=== PATIENT | male | born 1960 | race Caucasian/White ===

== ENCOUNTER 2016-07-09 18:40 | Inpatient (IN) | payer BC ==
[~2016-07-09] VITALS: Ht 182.9 cm; Wt 108.3 kg
[2016-07-09] MEDS ORDERED: ALBUT/IPRATROP 3MG/0.5MG NEB 3 ML VIAL INH STA (19:44)
[2016-07-09 19:54] LABS: BASO % 0.1 %; BASO ABS # 0.02 K/uL (0-0.2); COMPLETE YES; EOS % 0.1 %; IG% 0.2 %; LYMPH % 8.2 %; LYMPH ABS # 1.13 K/uL (1.2-3.4); MEAN CELL VOLUME 88.1 fL (80-100); MEAN CORPUSCULAR HEMOGLOBIN 30.9 pg (25-34); MEAN CORPUSCULAR HGB CONC 35.1 g/dl (32-36); MEAN PLATELET VOLUME 9.4 fL (7.4-10.4); MONO % 7.3 %; NEUT % 84.1 %; PLATELET COUNT 248 K/uL (130-400); RED BLOOD COUNT 4.88 M/uL (4.7-6.1); WHITE BLOOD COUNT 13.85 K/uL (4.8-10.8)
[2016-07-09 20:07] LABS: ALT/SGPT 27 U/L (12-78); AST/SGOT 18 U/L (15-37); BLOOD UREA NITROGEN 24 mg/dl (7-18); BUN/CREATININE RATIO 18.8 (10-20); CALCIUM 8.4 mg/dl (8.5-10.1); CARBON DIOXIDE 24 mmol/L (21-32); CHLORIDE 101 mmol/L (98-107); GLUCOSE 126 mg/dl (70-99); POTASSIUM 4.3 mmol/L (3.5-5.1); SODIUM 135 mmol/L (136-145)
[2016-07-09] MEDS ORDERED: LOPE1LIQ15 PO (20:12)
[2016-07-09 20:13] LABS: ALB/GLOB RATIO 1.1 (0.9-2); ALKALINE PHOSPHATASE 65 U/L (45-117); CKMB/CK RATIO 0.7 (0-3.0)
--- NOTE | 2016-07-09 20:45 | DIAGNOSTIC IMAGING REPORT ---
CHEST 2 VIEWS ROUTINE HISTORY: EVALUATE RESPIRATORY DISTRESS.DYSPNEA COMPARISON: Chest 09/25/2015. FINDINGS: Linear scarlike densities within the right lower lung zone persists. Stable calcified granuloma within the right lower lobe measuring 1.3 cm. No new focal lung consolidations. No evidence for pulmonary edema. Cardiomediastinal silhouette is stable. IMPRESSION: No significant change compared to the prior study. No acute process. Electronically signed by: Kelvin Chao M.D. 07/09/2016 8:44 PM Dictated Date/Time: 07/09/2016 8:41 PM
[2016-07-09 21:01] LABS: URINE APPEARANCE CLEAR (CLEAR); URINE COLOR ORANGE; URINE NITRITE POS (NEG); URINE SPECIFIC GRAVITY 1.029 (1.000-1.030); UROBILINOGEN NEG (NEG)
[2016-07-09 21:06] LABS: MANUAL MICROSCOPIC REQUIRED? NO; REVIEW REQ? NO; URINE BILIRUBIN NEG (NEG)
[2016-07-09] MEDS ORDERED: GUAIFENESIN SUGAR FREE 100 MG/5 ML UDC PO STA (21:08)
[2016-07-09] MEDS ORDERED: BENZONATATE 100MG CAP PO ONE (21:15)
[2016-07-09] MEDS ORDERED: OPTIRAY 320 IV PRN (21:15)
[2016-07-09] MEDS ORDERED: DEXAMETHASONE SOD INJ 10 MG/ML VIAL IV ONE (21:30)
--- NOTE | 2016-07-09 22:29 | DIAGNOSTIC IMAGING REPORT ---
CHEST CTA for PULMONARY ARTERIES CT DOSE: 666.46 mGy.cm HISTORY: Coughing. Short of breath. Positive d-dimer. TECHNIQUE: Multiaxial CT images of the chest were performed following the intravenous administration of contrast to evaluate the pulmonary arteries. Maximal intensity projection images were also obtained. COMPARISON STUDY: Chest CTA 09/25/2015. FINDINGS: No evidence for an aortic dissection or pulmonary embolus. No pneumothorax or pleural effusions. The central airways are patent. Stable 2 mm nodule within the left lung apex. Stable linear scarlike densities within the right middle lobe. No new focal lung consolidations to suggest pneumonia. Stable calcified granuloma within the right lower lobe. Hepatic steatosis. A few punctate calcified granulomas within the spleen. The adrenal glands are unremarkable. Cholelithiasis. Calcified subcarinal and right hilar lymph nodes. No lymphadenopathy. IMPRESSION: 1. No evidence for pulmonary embolus. 2. Evidence for prior granulomatous disease. 3. Stable scarlike densities within the right middle lobe. 4. Hepatic steatosis. 5. Cholelithiasis. Electronically signed by: Kelvin Chao M.D. 07/09/2016 10:27 PM Dictated Date/Time: 07/09/2016 10:19 PM
[2016-07-10] MEDS ORDERED: ASPIRIN 81 MG CHEW PO STA (01:14)
[2016-07-10] MEDS ORDERED: METOPROLOL TARTRATE 1 MG/ML VIAL IV STA (01:14)
[2016-07-10 01:22] VITALS: O2SAT 95
[2016-07-10] MEDS ORDERED: SODIUM CHLORIDE 0.9% 1000ML 1,000 ML IV SCH (01:30)
[2016-07-10 01:47] LABS: MAGNESIUM 2.1 mg/dl (1.8-2.4); THYROID STIMULATING HORMONE 0.736 uIu/ml (0.300-4.500)
[2016-07-10] MEDS ORDERED: CALCIUM GLUCONATE 10% 1,000 MG in SODIUM CHLORIDE 0.9% 50ML 50 ML IV STA (01:49)
[2016-07-10] MEDS ORDERED: PROMETHAZINE HCL INJ 12.5 MG in SODIUM CHLORIDE 0.9% 50ML 50 ML IV PRN (02:15)
[2016-07-10] MEDS ORDERED: LORAZEPAM 2 MG/ML 1 ML VIAL IV PRN (02:15)
[2016-07-10] MEDS ORDERED: LEVALBUTEROL/IPRATROPIUM NEB INH PRN (02:15)
[2016-07-10] MEDS ORDERED: SODIUM CHLORIDE 0.9% 1000ML 1,000 ML IV ONE (02:15)
[2016-07-10] MEDS ORDERED: BENZONATATE 100MG CAP PO PRN (02:15)
[2016-07-10] MEDS ORDERED: ACETAMINOPHEN 325 MG TAB PO PRN (02:15)
--- NOTE | 2016-07-10 03:01 | EMERGENCY ROOM VISIT NOTE ---
History Report prepared by [place]: Flor Merida Under the Supervision of: Dr. Yo Jordan M.D. First contact with patient: 19:33 Chief Complaint: COUGH Stated Complaint: COUGH,FEVER,HEARTRATE 120 Nursing Triage Summary: Cough for 3 months , not any better with treatment of abx, steroid and tessalon bertha History of Present Illness The patient is a 55 year old male who presents to the Emergency Room with complaints of severe and persistent cough starting 3 months ago. He notes difficulty breathing. He has been taking an inhaler, antibiotics, steroids, and Tessalon Bertha without relief. He also complains of a headache and generalized body aches. Yesterday, he had some vomiting and diarrhea. He had similar symptoms last year and he was diagnosed with pneumonitis. Pt denies LOC, fevers , chills, diaphoresis, visual changes, neck pain, chest pain, nausea, abdominal pain, back pain, melena, hematochezia, urinary symptoms, numbness, weakness, lymphadenopathy, rash, or other complaints. Source of History: patient Onset: 3 months ago Position: other (global) Symptom Intensity: severe Quality: other (cough) Timing: other (persistent) Modifying Factors (Relieving): other (inhaler, antibiotics, steroids, and Tessalon Bertha without relief) Associated Symptoms: + diarrhea, + headache, + vomiting Review of Systems See HPI for pertinent positives and negatives. A total of ten systems were reviewed and were otherwise negative. Past Medical & Surgical Medical Problems: (1) Arthritis (2) HTN (hypertension) (3) Sepsis Family History FH: myocardial infarction Heart disease Hypertension Social History Smoking Status: Current Every Day Smoker Drug Use: none Marital Status: Housing Status: lives with significant other Occupation Status: employed Current/Historical Medications Scheduled PRN Loperamide Hcl (Loperamide Hcl), 15 ML PO UD PRN for Diarrhea Allergies Coded Allergies: Shellfish (Unverified Allergy, Intermediate, ELLIOTT VARELA, 07/09/16) Physical Exam Vital Signs Date Time Temp Pulse Resp B/P Pulse Ox O2 Delivery O2 Flow Rate FiO2 07/10/16 01:24 90 162/89 07/10/16 01:22 97 18 162/89 95 Room Air 07/10/16 00:07 96 07/09/16 23:55 97 18 138/84 94 Room Air 07/09/16 22:11 107 18 142/73 95 Room Air 07/09/16 20:44 113 18 125/63 97 Room Air 07/09/16 20:34 107 07/09/16 19:39 96 Room Air 07/09/16 19:05 96 Room Air 07/09/16 19:02 37.7 128 20 130/64 96 Room Air Physical Exam GENERAL: Awake, alert, well-appearing, in no distress HENT: Normocephalic, atraumatic. Oropharynx unremarkable. EYES: Normal conjunctiva. Sclera non-icteric. NECK: Supple. No nuchal rigidity. FROM. No JVD. RESPIRATORY: Frequent cough present. CARDIAC: Mildly tachycardic rate, normal rhythm. Extremities warm and well perfused. Pulses equal. ABDOMEN: Soft, non-distended. No tenderness to palpation. No rebound or guarding. No masses. RECTAL: Deferred. MUSCULOSKELETAL: Chest examination reveals no tenderness. The back is symmetrical on inspection without obvious abnormality. There is no CVA tenderness to palpation. No joint edema. LOWER EXTREMITIES: Calves are equal size bilaterally and non-tender. No edema. No discoloration. NEURO: Normal sensorium. No sensory or motor deficits noted. SKIN: No rash or jaundice noted. Medical Decision & Procedures ER Provider Diagnostic Interpretation: X ray results as stated below per my interpretation and radiologist interpretation. CTA results as stated below per my review and radiologist interpretation CHEST CTA for PULMONARY ARTERIES CT DOSE: 666.46 mGy.cm HISTORY: Coughing. Short of breath. Positive d-dimer. TECHNIQUE: Multiaxial CT images of the chest were performed following the intravenous administration of contrast to evaluate the pulmonary arteries. Maximal intensity projection images were also obtained. COMPARISON STUDY: Chest CTA 09/25/2015. FINDINGS: No evidence for an aortic dissection or pulmonary embolus. No pneumothorax or pleural effusions. The central airways are patent. Stable 2 mm nodule within the left lung apex. Stable linear scarlike densities within the right middle lobe. No new focal lung consolidations to suggest pneumonia. Stable calcified granuloma within the right lower lobe. Hepatic steatosis. A few punctate calcified granulomas within the spleen. The adrenal glands are unremarkable. Cholelithiasis. Calcified subcarinal and right hilar lymph nodes. No lymphadenopathy. IMPRESSION: 1. No evidence for pulmonary embolus. 2. Evidence for prior granulomatous disease. 3. Stable scarlike densities within the right middle lobe. 4. Hepatic steatosis. 5. Cholelithiasis. Electronically signed by: Kelvin Chao M.D. 07/09/2016 10:27 PM Dictated Date/Time: 07/09/2016 10:19 PM CHEST 2 VIEWS ROUTINE HISTORY: EVALUATE RESPIRATORY DISTRESS.DYSPNEA COMPARISON: Chest 09/25/2015. FINDINGS: Linear scarlike densities within the right lower lung zone persists. Stable calcified granuloma within the right lower lobe measuring 1.3 cm. No new focal lung consolidations. No evidence for pulmonary edema. Cardiomediastinal silhouette is stable. IMPRESSION: No significant change compared to the prior study. No acute process. Electronically signed by: Kelvin Chao M.D. 07/09/2016 8:44 PM Dictated Date/Time: 07/09/2016 8:41 PM Laboratory Results 07/09/16 19:34 Red Blood Count 4.88, Mean Corpuscular Volume 88.1, Mean Corpuscular Hemoglobin 30.9, Mean Corpuscular Hemoglobin Concent 35.1, Mean Platelet Volume 9.4, Neutrophils (%) (Auto) 84.1, Lymphocytes (%) (Auto) 8.2, Monocytes (%) (Auto) 7.3, Eosinophils (%) (Auto) 0.1, Basophils (%) (Auto) 0.1, Neutrophils # (Auto) 11.64, Lymphocytes # (Auto) 1.13, Monocytes # (Auto) 1.01, Eosinophils # (Auto) 0.02, Basophils # (Auto) 0.02 07/09/16 19:34 Test 07/09/16 19:34 07/09/16 20:00 07/10/16 00:00 07/10/16 01:38 White Blood Count 13.85 K/uL (4.8-10.8) Red Blood Count 4.88 M/uL (4.7-6.1) Hemoglobin 15.1 g/dL (14.0-18.0) Hematocrit 43.0 % (42-52) Mean Corpuscular Volume 88.1 fL (80-100) Mean Corpuscular Hemoglobin 30.9 pg (25-34) Mean Corpuscular Hemoglobin Concent 35.1 g/dl (32-36) Platelet Count 248 K/uL (130-400) Mean Platelet Volume 9.4 fL (7.4-10.4) Neutrophils (%) (Auto) 84.1 % Lymphocytes (%) (Auto) 8.2 % Monocytes (%) (Auto) 7.3 % Eosinophils (%) (Auto) 0.1 % Basophils (%) (Auto) 0.1 % Neutrophils # (Auto) 11.64 K/uL (1.4-6.5) Lymphocytes # (Auto) 1.13 K/uL (1.2-3.4) Monocytes # (Auto) 1.01 K/uL (0.11-0.59) Eosinophils # (Auto) 0.02 K/uL (0-0.5) Basophils # (Auto) 0.02 K/uL (0-0.2) RDW Standard Deviation 43.6 fL (36.4-46.3) RDW Coefficient of Variation 13.5 % (11.5-14.5) Immature Granulocyte % (Auto) 0.2 % Immature Granulocyte # (Auto) 0.03 K/uL (0.00-0.02) D-Dimer 530 ug/L FEU (0-500) Anion Gap 10.0 mmol/L (3-11) Est Creatinine Clear Calc Drug Dose 80.2 ml/min Estimated GFR () 70.2 Estimated GFR (Non- 60.6 BUN/Creatinine Ratio 18.8 (10-20) Calcium Level 8.4 mg/dl (8.5-10.1) Magnesium Level 2.1 mg/dl (1.8-2.4) Total Bilirubin 1.0 mg/dl (0.2-1) Aspartate Amino Transf (AST/SGOT) 18 U/L (15-37) Alanine Aminotransferase (ALT/SGPT) 27 U/L (12-78) Alkaline Phosphatase 65 U/L (45-117) Total Creatine Kinase 206 U/L (39-308) Creatine Kinase MB 1.5 ng/ml (0.5-3.6) Creatine Kinase MB Ratio 0.7 (0-3.0) Troponin I < 0.015 ng/ml (0-0.045) Total Protein 7.1 gm/dl (6.4-8.2) Albumin 3.7 gm/dl (3.4-5.0) Globulin 3.4 gm/dl (2.5-4.0) Albumin/Globulin Ratio 1.1 (0.9-2) Thyroid Stimulating Hormone (TSH) 0.736 uIu/ml (0.300-4.500) Urine Color ORANGE Urine Appearance CLEAR (CLEAR) Urine pH 5.0 (4.5-7.5) Urine Specific Mclean 1.029 (1.000-1.030) Urine Protein TRACE (NEG) Urine Glucose (UA) NEG (NEG) Urine Ketones TRACE (NEG) Urine Occult Blood NEG (NEG) Urine Nitrite POS (NEG) Urine Bilirubin NEG (NEG) Urine Urobilinogen NEG (NEG) Urine Leukocyte Esterase TRACE (NEG) Urine WBC (Auto) 1-5 /hpf (0-5) Urine RBC (Auto) 0-4 /hpf (0-4) Urine Hyaline Casts (Auto) 10-30 /lpf (0-5) Urine Epithelial Cells (Auto) 10-20 /lpf (0-5) Urine Bacteria (Auto) NEG (NEG) Lactic Acid Level 0.8 mmol/L (0.4-2.0) Laboratory results reviewed by me Medications Administered Medications (Trade) Dose Ordered Sig/Wilder Route Start Time Stop Time Status Last Admin Dose Admin Albuterol/ Ipratropium (Duoneb) 3 ml NOW STAT INH 07/09/16 19:44 07/09/16 19:46 DC 07/09/16 19:55 3 ML Benzonatate (Tessalon Perles Cap) 100 mg NOW ONCE PO 07/09/16 21:15 07/09/16 21:16 DC 07/09/16 21:16 100 MG Guaifenesin (Robitussin Sugar Free Syrup) 100 mg NOW STAT PO 07/09/16 21:08 07/09/16 21:10 DC 07/09/16 21:17 100 MG Dexamethasone Sodium Phosphate (Decadron Inj) 10 mg NOW ONCE IV 07/09/16 21:30 07/09/16 21:31 DC 07/09/16 21:30 10 MG Metoprolol Tartrate (Lopressor Iv) 2.5 mg NOW STAT IV 07/10/16 01:14 07/10/16 01:15 DC 07/10/16 01:24 2.5 MG Aspirin 324 mg 324 mg NOW STAT PO 2/6/17 01:14 07/10/16 01:15 DC 07/10/16 01:24 324 MG Calcium Gluconate/ Sodium Chloride (Calcium Gluconate 10%/Nss 50ml) 60 ml @ 240 mls/hr NOW STAT IV 07/10/16 01:49 07/10/16 02:03 DC 07/10/16 02:19 240 MLS/HR ECG Indication: SOB/dyspnea Rate (beats per minute): 112 Rhythm: sinus tachycardia Findings: Q waves (Anterior and inferior), T-wave inversion (Lateral) Comparison ECG Date: September 25, 2015 Change: Q waves in inferior and anterior leads and lateral T wave inversion is new when compared to September 25, 2015. ED Course 1932: The patient was evaluated in room C04. A complete history and physical exam was performed. 1943: DuoNeb 3 ml INH 2107: Guaifenesin 100 mg PO 2114: Benzonatate 100 mg PO 2116: I reevaluated the patient who is resting comfortably. 2129: Decadron Inj 10 mg IV 113: Aspirin 324 mg PO, Metoprolol Tartrate 2.5 mg IV 0116: Upon reexamination, the patient was doing well. I discussed the test results and treatment plan with him. The patient will be evaluated for further management. 0118: I discussed the patient's case with Dr. Contreras, from [facility]. Medical Decision Triage Nursing notes reviewed. The patient's presentation and history were concerning for respiratory symptoms. Etiologies such as pneumonia, COPD, reactive airway disease, CHF, cardiac ischemia, pulmonary embolism, pneumothorax, musculoskeletal, infections, gastrointestinal, as well as others were entertained. The patient was evaluated. He had a significant cough and respiratory symptoms. He also had tachycardia. The patient had an unremarkable chest x- ray. ECG was performed and was concerning as there were Q waves present as well as ST depressions. The patient was not actively having any pain. Cardiac markers were negative, chemistry and LFTs were negative. The patient does have a elevated white blood cell count. His d-dimer was abnormal. Because of this the patient underwent CT imaging which did not reveal any intrathoracic emergent findings. No pulmonary emboli. No pneumonia. The patient's urinalysis was somewhat abnormal but he has no urinary symptoms. The patient was given IV Lopressor 2.5 mg as well as aspirin. I did discuss the findings. He is unaware of any abnormal ECGs in the past. Because of this situation consultation was made with internal medicine. The case was discussed. Diagnostics were reviewed. The patient was evaluated for further management. The patient did have a urine culture ordered by internal medicine. The chart was completed utilizing [employer] Speech voice recognition software. Grammatical errors, random word insertions, pronoun errors, and incomplete sentences are an occasional consequence of this system due to software limitations, ambient noise, and hardware issues. Any formal questions or concerns about the content, text, or information contained within the body of this dictation should be directly addressed to the physician for clarification. Consults Time Called: 011 Consulting Physician: [facility] Returned Call: 0118 I discussed the patient's case with Dr. Contreras, from [facility]. Impression Primary Impression: Dyspnea Additional Impressions: Tachycardia Acute electrocardiogram changes Scribe Attestation The scribe's documentation has been prepared under my direction and personally reviewed by me in its entirety. I confirm that the note above accurately reflects all work, treatment, procedures, and medical decision making performed by me. Departure Information Dispostion Being Evaluated By Hospitalist Referrals Sandeep Hernández PA-C (PCP) Patient Instructions My [facility] Problem Qualifiers
[2016-07-10] MEDS ORDERED: LORATADINE 10 MG TAB PO STA (03:13)
[2016-07-10] MEDS ORDERED: METRONIDAZOLE 250 MG TAB PO STA (03:13)
[2016-07-10] MEDS ORDERED: IPRATROPIUM BROMIDE NEB SOLN 0.02% 2.5 ML VIAL INH PRN (03:30)
[2016-07-10] MEDS ORDERED: LEVALBUTEROL 1.25MG/0.5ML NEB INH PRN (03:30)
[2016-07-10] MEDS ORDERED: LORAZEPAM INJ 0.5 MG in SYRINGE 0.75 ML IV PRN (03:30)
[2016-07-10 03:35] VITALS: BP 124/76; PULSE 78; TEMP 36.6; Ht 182.9 cm; Wt 108.3 kg
--- NOTE | 2016-07-10 03:47 | HISTORY & PHYSICAL EXAMINATION ---
DATE OF ADMISSION: 07/10/2016 PRIMARY CARE PHYSICIAN: Catracho Hernández PA-C [place] [place] CHIEF COMPLAINT: Nausea, vomiting, fever and persistent cough. HISTORY OF PRESENT ILLNESS: Medical history significant for ongoing tobacco abuse. In the last two months, patient has had dry cough symptoms. Recurrent symptoms the last 4 years around fall/winter time. Denies nasal congestion/postnasal drainage sx Px recalls seeing a specialty sales representative from [place] about 2 years ago for chronic cough sx. 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 Seen at PCP's office two weeks ago for cough sx of weeks duration. Impression was bronchitis. Px prescribed doxycycline and steroid course. No sx response. Today, the patient was seen at urgent care center because of worsening intractable dry cough symptoms. No chest pain, no sob. Px had nausea, vomiting, diarrhea, no abdominal pain. Patient denies urinary symptoms. Fever noted. At the Emergency Room, patient initially tachycardic, noted to be febrile, received Tylenol, IV fluids, DuoNebs in the Emergency Room. Patient currently comfortable but still coughing. MEDICAL HISTORY: As above. SURGERIES: None. HOME MEDICATIONS: Loperamide. ALLERGIES: SHELLFISH. FAMILY HISTORY: There is a family history of heart disease, prostate cancer. PERSONAL AND SOCIAL HISTORY: One-fourth pack day. 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 ROS : as per HPI, all other ROS negative. PHYSICAL EXAMINATION: VITAL SIGNS: Blood pressure was noted to be 130/64, pulse rate 90, RR 18 T 38 O2 sats 96% on room air. GENERAL: Noted to be obese, comfortable, no respiratory distress. SKIN: Normal color. HEENT: Partial alopecia. pink palp conjunctivae, dry mucosa. NECK: Short neck. LUNGS: Decreased breath sounds. No wheezes. HEART: RRR ABDOMEN: Soft, nontender. EXTREMITIES: No edema. no tenderness NEUROLOGIC: No gross focality. LABS: Hemoglobin was 15, hematocrit 40, white cell count 13, platelets 248. Sodium 136, potassium 4 glucose 121. trop 0 UA, trace ketones, positive nitrites, hyaline casts. IMAGING DATA: CT of the chest showed no pulmonary embolus, hepatic steatosis. scar-like densities right middle lobe. evidence of old granulomatous dse EKG rate 110 sinus tachycardia, TWI lat leads ASSESSMENT: 1. Sepsis possibly secondary to diarrheal illness rule out Clostridium difficile diarrhea. hx recent antibiotic rx for chronic cough sx 2. Chronic cough 3 months hx recurrent sx noted around fall/winter as per px over the last 4 years ? seasonal allergy/? asthma 4. ongoing tobacco abuse. 5. Asymptomatic pyuria. contaminated specimen PLAN: GMF CS, stool C. dif. IVF Flagyl for now for presumptive cdif in consideration of sepsis criteria. DC Flagyl if stool C. dif negative. Pulmonary consult RE. chronic cough oral antihistamine trial for now. Nicotine patch. DVT prophylaxis, Lovenox subQ. Full code. MTDD
[2016-07-10 04:24] LABS: INFLUENZA A PCR Neg for Influ A (NEG); INFLUENZA B PCR Neg for Influ B (NEG)
[2016-07-10 07:45] VITALS: BP 121/75; PULSE 72; TEMP 36.5; O2SAT 95
[2016-07-10 07:49] LABS: INR 1.1 (0.9-1.1); PROTHROMBIN TIME (PATIENT) 11.4 SECONDS (9.0-12.0)
[2016-07-10 07:50] LABS: COMPLETE YES; HEMATOCRIT 43.5 % (42-52); IG% 0.2 %; LYMPH % 15.4 %; LYMPH ABS # 0.99 K/uL (1.2-3.4); MEAN CELL VOLUME 87.7 fL (80-100); MEAN CORPUSCULAR HEMOGLOBIN 30.8 pg (25-34); MEAN CORPUSCULAR HGB CONC 35.2 g/dl (32-36); MEAN PLATELET VOLUME 9.6 fL (7.4-10.4); MONO % 2.3 %; NEUT % 82.1 %; PLATELET COUNT 218 K/uL (130-400); RED BLOOD COUNT 4.96 M/uL (4.7-6.1); WHITE BLOOD COUNT 6.43 K/uL (4.8-10.8)
[2016-07-10] MEDS ORDERED: NICOTINE 7 MG/24 HR TDSY TD SCH (08:00)
[2016-07-10] MEDS ORDERED: INFLUENZA ADMINISTRATION CHARGE ONE (08:00)
[2016-07-10] MEDS ORDERED: ENOXAPARIN 40 MG/0.4 ML SYR SQ SCH (08:00)
[2016-07-10] MEDS ORDERED: INFLUENZA VIRUS QUAD VACCINE 0.5 ML SYR IM. ONE (08:00)
[2016-07-10 08:16] LABS: CREATININE 0.92 mg/dl (0.60-1.40)
[2016-07-10 08:17] LABS: BUN/CREATININE RATIO 21.7 (10-20); CALCIUM 8.4 mg/dl (8.5-10.1); POTASSIUM 4.4 mmol/L (3.5-5.1)
[2016-07-10] MEDS ORDERED: GUAIFENESIN 600 MG TABCR PO SCH (09:00)
--- NOTE | 2016-07-10 10:17 | PULMONARY CONSULTATION ---
DATE OF CONSULTATION: 07/10/2016 HISTORY OF PRESENT ILLNESS: The patient is a 55-year-old male who was admitted with nausea, vomiting and persistent cough, and Dr. Contreras has asked me to evaluate the patient from a pulmonary standpoint for the cough. He has had a cough intermittently for 4 years. He states it occurs every winter around [facility] and resolves by the end of July, although he was seen for an acute bronchitis on 09/25/2015 in the Emergency Room and 09/17/2015, so it seems to persist at least into the springtime. The cough is for the most part nonproductive, although occasionally he will produce some thick yellow sputum but it is minimal. He denies aspiration, postnasal drip, fevers, night sweats, weight loss, shortness of breath. On occasion, he will have some mild wheezing. Nothing in the environment seems to precipitate the coughing, although it occurs every winter. I went over an extensive history about his home. He does have 4 dogs, some sleep in his bed but they do not cause too much problem for him as far as he can tell. During the summertime, it resolves. 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 He is smoking about a half pack of cigarettes daily, that is according to the record. According to the patient, he states he is smoking about 3 cigarettes daily, 1 in the morning, 1 after work, and 1 before he goes to bed at night. He is using 2 inhalers, 1 is red, that may be ProAir and the other sounds like Ventolin. He is not sure whether he has been on inhaled steroids in the past, but he states he has taken prednisone in the past without any improvement. REVIEW OF SYSTEMS: Otherwise unremarkable. He goes hunting in the cold weather and does not have any problems. He has not had any significant postnasal drip. There is no exposure to any chemicals. There is nothing to suggest metal fume fever with his welding. He is not an illicit drug user. He has not had any aspiration of any foreign bodies. He did see a tank terminal gauger in [place] since he moved to that area several years ago when he worked for [employer]. Lung specialist did not do bronchoscopy or endoscopy. He was placed on a nasal steroid at that time with no significant improvement. PAST MEDICAL HISTORY: Essentially otherwise unremarkable. PAST SURGICAL HISTORY: None. FAMILY HISTORY: Unremarkable. No one in his family has any pulmonary disorders. No one in his family has any asthma. His father had heart disease and prostate cancer. ALLERGIES: SHELLFISH WHICH CAUSES A RASH. SOCIAL HISTORY: He is . He smokes 3 cigarettes a day. He is not an alcohol user. He does not use illicit drugs. MEDICATIONS: Noted. PHYSICAL EXAMINATION: VITAL SIGNS: His blood pressure is 121/75, pulse 70 and regular, respiratory rate 18, oxygen saturation is 95% on room air, and he is afebrile. Weight is 108.3 kilograms. HEENT: Unremarkable with no evidence of postnasal drip. He has a small posterior pharynx and a large tongue with normal pendulous uvula. No nodes are noted. Trachea midline with no evidence of upper airway obstruction. No supraclavicular or submandibular adenopathy noted. CHEST: Shows good expansion with deep inspiration. BREASTS: Normal. HEART: Regular rate and rhythm. No murmurs are heard. LUNGS: Clear. Forced expiratory maneuver 2 seconds, he does have some coughing after forced expiration. ABDOMEN: Soft, obese, nontender. EXTREMITIES: He has no cyanosis, clubbing or edema. CT of the chest looks good with a minimal 2 mm nodule in the left apex. When compared to the previous CAT scan of 09/25/2015, it has not changed. Minimal scar like abnormality in right middle lobe is noted, hepatic steatosis and granuloma in the right lower lobe, and calcified subcarinal and right hilar lymph node is noted. Cholelithiasis is noted as well. LABORATORY DATA: White count 6.4, hematocrit 43.5%, with normal differential with no eosinophilia noted. Chemistry profile is unremarkable, glucose of 170. TSH, liver function studies, coagulation profile, urinalysis all essentially unremarkable. Influenza PCR for A and B is negative. Blood culture is pending. IMPRESSION: Chronic cough. This is probably related to tobacco use and perhaps some silent reflux. It is interesting that he has several small granulomas with calcified subcarinal and right hilar lymph nodes suggesting old infection. Granulomatous disease is a possibility, although I do not see anything by his exam or on the CT to suggest active sarcoid. This may be reactive airways disorder since it occurs every fall and seems to resolve in the spring. RECOMMENDATIONS: 1. At this point, I think I will discontinu the Mucinex and Tessalon. They have not helped in the past. He is not coughing up any significant sputum. 2. Begin Asmanex 220 mcg one inhalation b.i.d. 3. Antireflux regimen. I placed him on Prilosec 40 mg daily for at least 3 months to see if we can get this to resolve. 4. Check angiotensin converting enzyme level. About 10% of the people with sarcoid will have an elevated ROSALBA level. Thanks for asking me to evaluate Mr. Marshall. I will be glad to see him as an outpatient if he desires.
[2016-07-10] MEDS ORDERED: METRONIDAZOLE 500 MG TAB PO SCH (12:00)
--- NOTE | 2016-07-10 14:45 | Progress Note ---
Medicine Progress Note Date & Time of Visit: Jul 10, 2016 at 14:21. Subjective Pt was seen and examined Lying in bed comfortable with no distress Pt said that his cough feels much better He said that he feels fine he said that he has no diarrhea anymore he denies any chest pain, palpitation, dizziness and sob Objective Last 8 Hrs Date Time Temp Pulse Resp B/P Pulse Ox O2 Delivery O2 Flow Rate FiO2 07/10/16 08:00 Room Air 07/10/16 07:45 36.5 72 18 121/75 95 Room Air Physical Exam: General- adult Head- atraumatic Eyes- PERRL, EOMI ENT- oropharynx clear Neck- supple, no JVD Lungs- clear to auscultation and percussion Heart- regular rhythm; no murmur Abdomen- normal bowel sounds, soft Extremities- no calf tenderness Neuro- alert, oriented x 3; PERRL, EOMI; no facial palsy Skin- warm & dry Laboratory Results: Last 24 Hours Test 07/09/16 19:34 07/09/16 20:00 07/10/16 00:00 07/10/16 01:38 White Blood Count 13.85 K/uL Red Blood Count 4.88 M/uL Hemoglobin 15.1 g/dL Hematocrit 43.0 % Mean Corpuscular Volume 88.1 fL Mean Corpuscular Hemoglobin 30.9 pg Mean Corpuscular Hemoglobin Concent 35.1 g/dl Platelet Count 248 K/uL Mean Platelet Volume 9.4 fL Neutrophils (%) (Auto) 84.1 % Lymphocytes (%) (Auto) 8.2 % Monocytes (%) (Auto) 7.3 % Eosinophils (%) (Auto) 0.1 % Basophils (%) (Auto) 0.1 % Neutrophils # (Auto) 11.64 K/uL Lymphocytes # (Auto) 1.13 K/uL Monocytes # (Auto) 1.01 K/uL Eosinophils # (Auto) 0.02 K/uL Basophils # (Auto) 0.02 K/uL RDW Standard Deviation 43.6 fL RDW Coefficient of Variation 13.5 % Immature Granulocyte % (Auto) 0.2 % Immature Granulocyte # (Auto) 0.03 K/uL D-Dimer 530 ug/L FEU Sodium Level 135 mmol/L Potassium Level 4.3 mmol/L Chloride Level 101 mmol/L Carbon Dioxide Level 24 mmol/L Anion Gap 10.0 mmol/L Blood Urea Nitrogen 24 mg/dl Creatinine 1.30 mg/dl Est Creatinine Clear Calc Drug Dose 80.2 ml/min Estimated GFR () 70.2 Estimated GFR (Non- 60.6 BUN/Creatinine Ratio 18.8 Random Glucose 126 mg/dl Calcium Level 8.4 mg/dl Magnesium Level 2.1 mg/dl Total Bilirubin 1.0 mg/dl Aspartate Amino Transf (AST/SGOT) 18 U/L Alanine Aminotransferase (ALT/SGPT) 27 U/L Alkaline Phosphatase 65 U/L Total Creatine Kinase 206 U/L Creatine Kinase MB 1.5 ng/ml Creatine Kinase MB Ratio 0.7 Troponin I < 0.015 ng/ml Total Protein 7.1 gm/dl Albumin 3.7 gm/dl Globulin 3.4 gm/dl Albumin/Globulin Ratio 1.1 Thyroid Stimulating Hormone (TSH) 0.736 uIu/ml Urine Color ORANGE Urine Appearance CLEAR Urine pH 5.0 Urine Specific [place] 1.029 Urine Protein TRACE Urine Glucose (UA) NEG Urine Ketones TRACE Urine Occult Blood NEG Urine Nitrite POS Urine Bilirubin NEG Urine Urobilinogen NEG Urine Leukocyte Esterase TRACE Urine WBC (Auto) 1-5 /hpf Urine RBC (Auto) 0-4 /hpf Urine Hyaline Casts (Auto) 10-30 /lpf Urine Epithelial Cells (Auto) 10-20 /lpf Urine Bacteria (Auto) NEG Influenza Type A (RT-PCR) Neg for Influ A Influenza Type B (RT-PCR) Neg for Influ B Lactic Acid Level 0.8 mmol/L Test 07/10/16 06:50 07/10/16 09:25 White Blood Count 6.43 K/uL Red Blood Count 4.96 M/uL Hemoglobin 15.3 g/dL Hematocrit 43.5 % Mean Corpuscular Volume 87.7 fL Mean Corpuscular Hemoglobin 30.8 pg Mean Corpuscular Hemoglobin Concent 35.2 g/dl Platelet Count 218 K/uL Mean Platelet Volume 9.6 fL Neutrophils (%) (Auto) 82.1 % Lymphocytes (%) (Auto) 15.4 % Monocytes (%) (Auto) 2.3 % Eosinophils (%) (Auto) 0.0 % Basophils (%) (Auto) 0.0 % Neutrophils # (Auto) 5.28 K/uL Lymphocytes # (Auto) 0.99 K/uL Monocytes # (Auto) 0.15 K/uL Eosinophils # (Auto) 0.00 K/uL Basophils # (Auto) 0.00 K/uL RDW Standard Deviation 42.9 fL RDW Coefficient of Variation 13.4 % Immature Granulocyte % (Auto) 0.2 % Immature Granulocyte # (Auto) 0.01 K/uL Prothrombin Time 11.4 SECONDS Prothromb Time International Ratio 1.1 Sodium Level 136 mmol/L Potassium Level 4.4 mmol/L Chloride Level 103 mmol/L Carbon Dioxide Level 21 mmol/L Anion Gap 12.0 mmol/L Blood Urea Nitrogen 20 mg/dl Creatinine 0.92 mg/dl Est Creatinine Clear Calc Drug Dose 112.6 ml/min Estimated GFR () 106.6 Estimated GFR (Non- 92.0 BUN/Creatinine Ratio 21.7 Random Glucose 170 mg/dl Calcium Level 8.4 mg/dl Date/Time Source Procedure Growth Status 07/10/16 01:38 Blood Blood Culture Pending Received 07/09/16 19:35 Blood Blood Culture Pending Received 07/09/16 20:00 Urine , Clean Catch Urine Culture Pending Received Assessment & Plan Diarrhea Possible related to viral gastroenteritis Will D/C metronidazole Diarrhea resolved Fever No elevated WBC Blood cx and urine cx pending It was during the admission has been afebrile since then Chronic cough CTA chest showed no sign for pneumonia Pulmonary consulted recommended to start on Asmanex and a trial of Prilosec for 3 months Follow up with Pulmonary as an outpatient is symptoms persists On guaifenesin and Tessalon Tobacco abuse Counseling on smoking cessation Continue nicotine patch DVT px on Lovenox subq CODE STATUS FULL CODE DISPOSITION Possible discharge today Consultants: Pulmonary Current Inpatient Medications: Current Inpatient Medications Medications (Trade) Dose Ordered Sig/Wilder Route Start Time Stop Time Status Last Admin Dose Admin Ioversol (Optiray 320) 100 ml UD PRN IV 07/09/16 21:15 07/13/16 21:14 Metronidazole (Flagyl Tab) 500 mg TID PO 07/10/16 12:00 07/20/16 11:59 07/10/16 12:08 500 MG Enoxaparin Sodium (Lovenox Inj) 40 mg QAM SQ 07/10/16 08:00 08/09/16 07:59 Acetaminophen (Tylenol Tab) 650 mg Q4H PRN PO 07/10/16 02:15 08/09/16 02:14 Nicotine (Nicoderm Cq 7 Mg Patch) 1 patch QAM TD 07/10/16 08:00 08/09/16 08:59 Lorazepam (Ativan Inj) 0.5 mg Q4H PRN IV 07/10/16 02:15 08/09/16 02:14 Guaifenesin (Mucinex Contr Rel Tab) 600 mg Q12H PO 07/10/16 09:00 08/09/16 08:59 07/10/16 07:58 600 MG Benzonatate (Tessalon Perles Cap) 100 mg TID PRN PO 07/10/16 02:15 08/09/16 02:14 Miscellaneous 1 ea 1 ea HS N/A 07/10/16 21:00 08/09/16 20:59 Promethazine HCl/ Sodium Chloride (Phenergan Inj/ Nss 50ml) 50.5 ml @ 204 mls/hr Q6H PRN IV 07/10/16 02:15 08/09/16 02:14 Ipratropium Mckean (Atrovent 0.02% 0.5MG/2.5ML Neb) 0.5 mg Q4H PRN INH 07/10/16 03:30 08/09/16 03:29 Levalbuterol 1.25 mg 1.25 mg Q4H PRN INH 07/10/16 03:30 08/09/16 03:29 Lorazepam/Syringe (Ativan Inj/ Syringe) 1 ml @ 1 mls/min Q4H PRN IV 07/10/16 03:30 08/09/16 03:29 Mometasone Furoate (Asmanex 220MCG Inh) 1 puff BID INH 07/10/16 20:00 08/09/16 19:59
[2016-07-10 15:03] VITALS: BP 118/80; PULSE 75; TEMP 36.5; O2SAT 96
[2016-07-10] MEDS ORDERED: ASMIN INH (19:25)
[2016-07-10] MEDS ORDERED: OMEP40CA41 PO (19:25)
[2016-07-10] MEDS ORDERED: BENZ100C7 PO (19:25)
--- NOTE | 2016-07-10 19:36 | Discharge Instructions ---
Discharge Instructions Admission Reason for Admission: Diarrhea Discharge Discharge Diagnosis / Problem: Chronic cough, Diarrhea, fever, Tobacco abuse Discharge Goals Goal(s): Decrease discomfort, Improve function, Improve disease control Activity Recommendations Activity Limitations: resume your previous activity (as tolerated) Instructions / Follow-Up Instructions / Follow-Up Follow up with your primary care provider JULES Hernández on Jul 17 @ 9:40 am Counseling on smoking cessation If you develop any fever and diarrhea, please seek medical assistance Follow up with Pulmonary Dr. Dewitt in 2 to 3 months if cough persist [address], [place] [address] Current Hospital Diet Patient's current hospital diet: AHA Diet (Heart Healthy), Low Lactose Diet Discharge Diet Recommended Diet: AHA Diet (Heart Healthy) Pending Studies Studies pending at discharge: yes List of pending studies: ROSALBA level Urine cx Blood cx Medical Emergencies . Who to Call and When: Medical Emergencies: If at any time you feel your situation is an emergency, please call 911 immediately. . Non-Emergent Contact Non-Emergency issues call your: Primary Care Provider Call Non-Emergent contact if: you have a fever, you have any medication questions . . "Provider Documentation" section prepared by Cara Magana. VTE Core Measure Inpt VTE Proph given/why not?: Enoxaparin (Lovenox)SQ
[2016-07-10 19:38] VITALS: BP 118/80; PULSE 75; TEMP 36.5; O2SAT 96
[2016-07-10] MEDS ORDERED: MOMETASONE FUROATE 14 PUFF/1 INHALER INH SCH (20:00)
--- NOTE | 2016-07-13 10:01 | Discharge Summary ---
Discharge Summary Admission Date: Jul 10, 2016 at 01:53 Discharge Date: Jul 10, 2016 Discharge Disposition: Home Principal Diagnosis: Cough associated with Fever Secondary Diagnoses/Problems: Diarrhea Tobacco abuse Chronic cough Procedures: CHEST CTA for PULMONARY ARTERIES CT DOSE: 666.46 mGy.cm HISTORY: Coughing. Short of breath. Positive d-dimer. TECHNIQUE: Multiaxial CT images of the chest were performed following the intravenous administration of contrast to evaluate the pulmonary arteries. Maximal intensity projection images were also obtained. COMPARISON STUDY: Chest CTA 09/25/2015. FINDINGS: No evidence for an aortic dissection or pulmonary embolus. No pneumothorax or pleural effusions. The central airways are patent. Stable 2 mm nodule within the left lung apex. Stable linear scarlike densities within the right middle lobe. No new focal lung consolidations to suggest pneumonia. Stable calcified granuloma within the right lower lobe. Hepatic steatosis. A few punctate calcified granulomas within the spleen. The adrenal glands are unremarkable. Cholelithiasis. Calcified subcarinal and right hilar lymph nodes. No lymphadenopathy. IMPRESSION: 1. No evidence for pulmonary embolus. 2. Evidence for prior granulomatous disease. 3. Stable scarlike densities within the right middle lobe. 4. Hepatic steatosis. 5. Cholelithiasis. Electronically signed by: Kelvin Chao M.D. 07/09/2016 10:27 PM Consultations: Pulmonary Medication Reconciliation New Medications: Omeprazole (Prilosec) 40 Mg Cap 40 MG PO DAILY for 30 Days, #30 CAP Benzonatate (Benzonatate) 100 Mg Cap 100 MG PO TID PRN for Cough for 7 Days, #21 CAP Mometasone Furoate (Asmanex 14 Metered Doses) 14 Puff/1 Inhaler Aerp 1 PUFF INH BID for 30 Days, #1 Discontinued Medications: Loperamide Hcl (Loperamide Hcl) 1 Mg/5 Ml Liq 15 ML PO UD PRN for Diarrhea Admission Information HPI (per Admitting provider): CHIEF COMPLAINT: Nausea, vomiting, fever and persistent cough. HISTORY OF PRESENT ILLNESS: Medical history significant for ongoing tobacco abuse. In the last two months, patient has had dry cough symptoms. Recurrent symptoms the last 4 years around fall/winter time. Denies nasal congestion/postnasal drainage sx Px recalls seeing a ceramic tile installation helper from [place], [place] about 2 years ago for chronic cough sx. 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 Seen at PCP's office two weeks ago for cough sx of weeks duration. Impression was bronchitis. Px prescribed doxycycline and steroid course. No sx response. Today, the patient was seen at urgent care center because of worsening intractable dry cough symptoms. No chest pain, no sob. Px had nausea, vomiting, diarrhea, no abdominal pain. Patient denies urinary symptoms. Fever noted. At the Emergency Room, patient initially tachycardic, noted to be febrile, received Tylenol, IV fluids, DuoNebs in the Emergency Room. Patient currently comfortable but still coughing. Physical Exam (per Admitting): PHYSICAL EXAMINATION: VITAL SIGNS: Blood pressure was noted to be 130/64, pulse rate 90, RR 18 T 38 O2 sats 96% on room air. GENERAL: Noted to be obese, comfortable, no respiratory distress. SKIN: Normal color. HEENT: Partial alopecia. pink palp conjunctivae, dry mucosa. NECK: Short neck. LUNGS: Decreased breath sounds. No wheezes. HEART: RRR ABDOMEN: Soft, nontender. EXTREMITIES: No edema. no tenderness NEUROLOGIC: No gross focality. Hospital Course Diarrhea Possible related to viral gastroenteritis Will D/C metronidazole Diarrhea resolved Fever No elevated WBC Blood cx and urine cx pending It was during the admission has been afebrile since then Chronic cough CTA chest showed no sign for pneumonia Pulmonary consulted recommended to start on Asmanex and a trial of Prilosec for 3 months Follow up with Pulmonary as an outpatient is symptoms persists On guaifenesin and Tessalon Tobacco abuse Counseling on smoking cessation Continue nicotine patch DVT px on Lovenox subq CODE STATUS FULL CODE DISPOSITION Possible discharge today Total time spent on discharge = 35 minutes This includes examination of the patient, discharge planning, medication reconciliation, and communication with other providers. Discharge Instructions Discharge Instructions Admission Reason for Admission: Diarrhea Discharge Discharge Diagnosis / Problem: Chronic cough, Diarrhea, fever, Tobacco abuse Discharge Goals Goal(s): Decrease discomfort, Improve function, Improve disease control Activity Recommendations Activity Limitations: resume your previous activity (as tolerated) Instructions / Follow-Up Instructions / Follow-Up Follow up with your primary care provider JULES Hernández on Jul 17 @ 9:40 am Counseling on smoking cessation If you develop any fever and diarrhea, please seek medical assistance Follow up with Pulmonary Dr. Dewitt in 2 to 3 months if cough persist [address], [place] [address] Current Hospital Diet Patient's current hospital diet: AHA Diet (Heart Healthy), Low Lactose Diet Discharge Diet Recommended Diet: AHA Diet (Heart Healthy) Pending Studies Studies pending at discharge: yes List of pending studies: ROSALBA level Urine cx Blood cx Medical Emergencies . Who to Call and When: Medical Emergencies: If at any time you feel your situation is an emergency, please call 911 immediately. . Non-Emergent Contact Non-Emergency issues call your: Primary Care Provider Call Non-Emergent contact if: you have a fever, you have any medication questions . . "Provider Documentation" section prepared by Cara Magana. VTE Core Measure Inpt VTE Proph given/why not?: Enoxaparin (Lovenox)SQ Additional Copies To Sandeep Hernández PA-C
--- NOTE | 2016-07-13 18:13 | EDITING REQUIRED CODING QUERY ---
SEPSIS Dear Dr. Magana, To promote full compliance with coding requirements relating to patient care, physician participation is requested in all cases of domain architect uncertainty. Please assist us with the question(s) below: In responding to this query, please exercise your independent professional judgement. The fact that a question is asked does not imply that any particular answer is desired or expected. We appreciate your clarification on this issue. Please clarify Sepsis: Medical documentation from H and P: ASSESSMENT: 1. Sepsis possibly secondary to diarrheal illness rule out Clostridium difficile diarrhea. hx recent antibiotic rx for chronic cough sx 2. Chronic cough ( )Bacteremia (Nonspecific laboratory finding of bacteria in the blood) Specify Organism ( ) Present on Admission ( ) Not present on admission () Unable to clinically determine ( ) Septicemia (Systemic disease associated with the presence of pathogenic microorganisms in the blood): Specify Organism ( ) Present on Admission () Not present on admission () Unable to clinically determine ( ) Sepsis Specify Organism Specify Associated Condition/Diagnosis ( ) Present on Admission () Not present on admission () Unable to clinically determine ( ) Severe Sepsis (Sepsis associated with acute organ dysfunction) Specify Organism Specify Associated Condition/Diagnosis () Present on Admission () Not present on admission () Unable to clinically determine ( ) Septic Shock (Severe sepsis with acute circulatory failure, unexplained by other causes) ( ) Present on Admission () Not present on admission () Unable to clinically determine ( ) Other, patient has: ( x) Sepsis was Ruled Out. Thank you for your time. Jenny Alarcon, TURN SUPERVISOR
== END 2016-07-10 19:47 | disposition home or self-care (01) | DRG 392 ==
LOC: ENRESERVTM → ENRESERVDT → C.EDB 18:43 → EDBEDREQSVC 07-10 01:51 → C.4E 07-10 01:53
PROVIDERS: ADMIT Internal Medicine; ATTEND Internal Medicine
DX: A08.4 Viral intestinal infection, unspecified (principal); J45.909 Unspecified asthma, uncomplicated; F17.210 Nicotine dependence, cigarettes, uncomplicated; R50.9 Fever, unspecified; R05 Cough; K21.9 Gastro-esophageal reflux disease without esophagitis; M19.90 Unspecified osteoarthritis, unspecified site; R00.0 Tachycardia, unspecified; R94.31 Abnormal electrocardiogram [ECG] [EKG]; R06.00 Dyspnea, unspecified; Z86.79 Personal history of other diseases of the circulatory system; Z79.899 Other long term (current) drug therapy

== ENCOUNTER → 2016-09-29 | Outpatient (CLI) | payer BC ==
[~2016-09-29] MED LIST: ASMIN INH; BENZ100C7 PO
[2016-09-29 12:17] LABS: BASO % 0.7 %; BASO ABS # 0.06 K/uL (0-0.2); COMPLETE YES; EOS % 3.4 %; HEMATOCRIT 45.1 % (42-52); IG% 0.1 %; LYMPH % 42.2 %; LYMPH ABS # 3.56 K/uL (1.2-3.4); MEAN CELL VOLUME 85.7 fL (80-100); MEAN CORPUSCULAR HEMOGLOBIN 29.7 pg (25-34); MEAN CORPUSCULAR HGB CONC 34.6 g/dl (32-36); MONO % 10.4 %; NEUT % 43.2 %; PLATELET COUNT 244 K/uL (130-400); RED BLOOD COUNT 5.26 M/uL (4.7-6.1); WHITE BLOOD COUNT 8.44 K/uL (4.8-10.8)
[2016-10-04 18:25] LABS: ASPERGILLUS FUMIGATUS NEGATIVE (NEGATIVE); BORDETELLA PERTUSSIS PT IGA 10 IU/mL; IMMUNOGLOBULIN E TC 24620E 100 KU/L (<115); M. FAENI (S. RECTIVIRGULA) NEGATIVE (NEGATIVE); PIGEON SERUM NEGATIVE (NEGATIVE); SACCHAROMONOSPORA VIRIDIS AB NEGATIVE (NEGATIVE); THERMOACTINOMYCES CANDIDUS NEGATIVE (NEGATIVE); THERMOACTINOMYCES VULGARIS NEGATIVE (NEGATIVE)
== END ==
LOC: C.LAB1850 11:29
PROVIDERS: ATTEND Internal Medicine Pulmonary Disease
DX: R05 Cough (principal)

== ENCOUNTER 2021-04-03 09:17 | Inpatient (IN) ==
[2021-04-03] MEDS ORDERED: ASPIRIN CHEW 324 MG PO STA (09:29)
[2021-04-03] MEDS ORDERED: TICAGRELOR 90 MG TAB PO ONE (09:29)
[2021-04-03] MEDS ORDERED: HEPARIN SOD (PORCINE) 1000 UNIT/ML IV ONE (09:29)
[2021-04-03] MEDS ORDERED: NITROGLYCERIN/D5W 100MCG/ML 20ML SYR ONE (09:51)
[2021-04-03] MEDS ORDERED: MIDAZOLAM HCL 1 MG/ML 2ML VIAL ONE ×3 (09:51→10:37)
[2021-04-03] MEDS ORDERED: fentaNYL citrate 100 MCG/2 ML VIAL ONE ×2 (09:51→10:37)
[2021-04-03] MEDS ORDERED: niCARdipine HCL INJ 2.5 MG/ML 10 ML AMP ONE (09:51)
[2021-04-03] MEDS ORDERED: HEPARIN (PORCINE) 1000 UNIT/ML 10 ML (CATH LAB USE ONLY) ONE (09:51)
--- NOTE | 2021-04-03 09:51 | Emergency Department Note ---
History of Present Illness General Chief complaint: Chest Pain Stated complaint: CHEST PAIN,LEFT ARM FEELING FUNNY Time Seen by Provider: 04/03/21 09:28 History of Present Illness Maximum Pain Intensity: 6 60-year-old male presents to the ED with a chief complaint of left-sided chest pain/tightness that started at 7 AM while he was awake. He was still in bed but was awake. He reports diaphoresis associated with his symptoms. Denies any nausea or shortness of breath. Pain does not radiate. He is a smoker. He states that he does not go to a doctor regularly. He is currently not taking any medications. Denies any recent upper respiratory illness.The patient has had [employer] vaccines in November. Home Medications Medication Instructions Recorded Confirmed Type losartan 25 mg tablet 25 mg PO DAILY #30 tab 06/17/20 09/14/20 Rx blood sugar diagnostic (OneTouch #50 ea 06/18/20 09/14/20 Rx Ultra Blue Test Strip) atorvastatin 80 mg tablet 80 mg PO QAM #90 tab 09/14/20 09/15/20 Rx Allergies Allergy/AdvReac Type Severity Reaction Status Date / Time shellfish derived Allergy Intermediate THOAT Verified 09/15/20 10:05 SWELLS Past Med/Surg History Medical History Benign essential hypertension Hyperlipidemia Peripheral neuropathy Prostate cancer screening Tobacco use disorder Surgical History History of colonoscopy Status post ORIF of fracture of ankle "left" Family History Father Heart disease Prostate cancer Mother Diabetes Myocardial infarction Denies family history of Ovarian cancer Breast cancer Colorectal cancer Social History Smoking Status: Current every day smoker Tobacco Type: Cigarettes Hx Alcohol Use: Yes Alcohol type: beer Alcohol Intake Frequency: Monthly or Less Hx Substance Use: No Preferred Language: P[place] Communication Ability: Effective Visual Impairment: Limited Hearing Ability: Normal Beliefs That Will Affect Care: None marital status: single Current Living Situation: Alone Current Living Situation Comment: ex- current occupational status: employed current occupation: currently off work on medical leave How many Children do You have: 0 Feels Safe at Home: Yes during the past year weight has: remained stable Review of Systems A total of 10 systems reviewed and were otherwise negative Physical Exam Vital Signs Vital Signs - 24 hr 04/03/21 09:20 04/03/21 09:43 04/03/21 09:59 Temperature 36.6 C Temperature Source Oral Pulse Rate 91 H Pulse Rate [Apical] 93 H Pulse Rhythm Regular Pulse Strength Normal Respiratory Rate 18 18 Respiratory Effort / Characteristics Non-Labored Spontaneous Respiratory Depth Normal Respiratory Pattern Regular Blood Pressure 152/107 H Blood Pressure [Left Arm] 159/105 H Blood Pressure Mean 122 Blood Pressure Mean [Left Arm] 123 Blood Pressure Position Lying Pulse Oximetry 97 98 98 Oxygen Delivery Method Room Air Room Air Room Air Sepsis Recent Fever Within 48 Hours No Sepsis New/Unexplained Change in Mental Status N/A Sepsis Action Taken by Nursing No Action Required CONSTITUTIONAL/VITAL SIGNS: Reviewed / noted above. GENERAL: Non-toxic in appearance. INTEGUMENTARY: Warm, diaphoretic, and [place]. HEAD: Normocephalic. EYES: without scleral icterus or trauma. ENT/OROPHARYNX: clear and moist. LYMPHADENOPATHY/NECK: Is supple without lymphadenopathy or meningismus. RESPIRATORY: Clear to auscultation bilaterally. No increased work of breathing. CARDIOVASCULAR: Regular rate and rhythm. GI/ABDOMEN: Soft and nontender. No organomegaly or pulsatile mass. EXTREMITIES: Warm and well perfused. BACK: No CVA tenderness. NEUROLOGICAL: Intact without focal deficits. PSYCHIATRIC: normal affect. MUSCULOSKELETAL: Normally developed with good muscle tone. TRIAGE NURSING DOCUMENTATION REVIEWED. Course Administered Medications Discontinued Medications Aspirin (Aspirin Chew 324 Mg) 324 mg PO NOW STA Stop: 04/03/21 09:30 Last Admin: 04/03/21 09:39 Dose: 324 mg Documented by: [id number] Heparin Sodium (Porcine) (Heparin Sod (Porcine) 1000 Unit/Ml) 5,000 units IV NOW ONE Stop: 04/03/21 09:30 Last Admin: 04/03/21 09:40 Dose: 5,000 units Documented by: [id number] Cosigned by: [id number] Ticagrelor (Ticagrelor 90 Mg Tab) 180 mg PO ONE ONE Stop: 04/03/21 09:30 Last Admin: 04/03/21 09:47 Dose: 180 mg Documented by: [id number] Critical Care Time Critical Care Time: Yes Total Critical Care Time: 30 I have personally spent 30 minutes of critical care time in the direct management of this patient. This includes bedside care, interpretation of diagnostic studies, and testing, discussion with consultants, patient, and family members, and other required patient management activities. This 30 minutes is in excess of all separately billable procedures. Medical Decision Making Differential Diagnosis The differential that was considered includes acute myocardial infarction, acute coronary syndrome, myocarditis, pericarditis, pericardial effusions /tamponade, esophageal perforation, thoracic aortic dissection, pulmonary embolism, pneumonia, pneumothorax, pancreatitis, shingles, acute cholecystitis, perforated abdominal viscus. Medical Records Attestation: I reviewed the patient's medical records. Home Medications Current Medication List: was personally reviewed by me Laboratory Data Attestation: I reviewed the patient's lab results. Result diagrams: 04/03/21 09:45 04/03/21 09:40 Lab Results 04/03/21 04/03/21 04/03/21 Range/Units 09:40 09:45 09:45 WBC 8.97 (4.8-10.8) K/uL RBC 5.55 (4.7-6.1) M/uL Hgb 17.0 (14.0-18.0) g/dL Hct 47.8 (42-52) % MCV 86.1 (80-100) fL MCH 30.6 (25-34) pg MCHC 35.6 (32-36) g/dL RDW Std Deviation 39.6 (36.4-46.3) fL RDW Coeff of Denilson 12.5 (11.5-14.5) % Plt Count 233 (130-400) K/uL MPV 9.0 (7.4-10.4) fL Immature Gran % (Auto) 0.2 % Neut % (Auto) 50.0 % Lymph % (Auto) 35.3 % [place] % (Auto) 10.3 % Eos % (Auto) 3.3 % Baso % (Auto) 0.9 % Neut # (Auto) 4.48 (1.4-6.5) K/uL Lymph # (Auto) 3.17 (1.2-3.4) K/uL [place] # (Auto) 0.92 H (0.11-0.59) K/uL Eos # (Auto) 0.30 (0-0.5) K/uL Baso # (Auto) 0.08 (0-0.2) K/uL Immature Gran # (Auto) 0.02 (0.00-0.02) K/uL PT 10.2 (9.0-12.0) Seconds INR 1.0 (0.9-1.1) APTT 28.7 (21.0-31.0) Seconds PTT Ratio 1.1 Sodium 137 (136-145) mmol/L Potassium 4.1 (3.5-5.1) mmol/L Chloride 107 (98-107) mmol/L Carbon Dioxide 22 (21-32) mmol/L Anion Gap 8.0 (3-11) BUN 15 (7-18) mg/dl Creatinine 0.92 (0.6-1.4) mg/dl Est Cr Clr Drug Dosing 109.4 ml/min Est GFR ( Amer) 102.9 ml/min Est GFR (Non-Af Amer) 88.8 ml/min BUN/Creatinine Ratio 16.0 (10-20) Glucose 150 H (70-99) mg/dl Calcium 9.3 (8.5-10.1) mg/dl Total Bilirubin 0.5 (0.2-1) mg/dl AST 22 (15-37) U/L ALT 35 (12-78) U/L Alkaline Phosphatase 72 (45-117) U/L Troponin I 0.035 (0-0.045) ng/ml Total Protein 7.9 (6.4-8.2) gm/dl Albumin 3.8 (3.4-5.0) gm/dl Globulin 4.1 H (2.5-4.0) gm/dl Albumin/Globulin Ratio 0.9 (0.9-2) Lipase 180 (73-393) U/L COVID-19 Eval Order 04/03/21 Range/Units Unknown WBC (4.8-10.8) K/uL RBC (4.7-6.1) M/uL Hgb (14.0-18.0) g/dL Hct (42-52) % MCV (80-100) fL MCH (25-34) pg MCHC (32-36) g/dL RDW Std Deviation (36.4-46.3) fL RDW Coeff of Denilson (11.5-14.5) % Plt Count (130-400) K/uL MPV (7.4-10.4) fL Immature Gran % (Auto) % Neut % (Auto) % Lymph % (Auto) % [place] % (Auto) % Eos % (Auto) % Baso % (Auto) % Neut # (Auto) (1.4-6.5) K/uL Lymph # (Auto) (1.2-3.4) K/uL [place] # (Auto) (0.11-0.59) K/uL Eos # (Auto) (0-0.5) K/uL Baso # (Auto) (0-0.2) K/uL Immature Gran # (Auto) (0.00-0.02) K/uL PT (9.0-12.0) Seconds INR (0.9-1.1) APTT (21.0-31.0) Seconds PTT Ratio Sodium (136-145) mmol/L Potassium (3.5-5.1) mmol/L Chloride (98-107) mmol/L Carbon Dioxide (21-32) mmol/L Anion Gap (3-11) BUN (7-18) mg/dl Creatinine (0.6-1.4) mg/dl Est Cr Clr Drug Dosing ml/min Est GFR ( Amer) ml/min Est GFR (Non-Af Amer) ml/min BUN/Creatinine Ratio (10-20) Glucose (70-99) mg/dl Calcium (8.5-10.1) mg/dl Total Bilirubin (0.2-1) mg/dl AST (15-37) U/L ALT (12-78) U/L Alkaline Phosphatase (45-117) U/L Troponin I (0-0.045) ng/ml Total Protein (6.4-8.2) gm/dl Albumin (3.4-5.0) gm/dl Globulin (2.5-4.0) gm/dl Albumin/Globulin Ratio (0.9-2) Lipase (73-393) U/L COVID-19 Eval Order Covid19 at [facility] Imaging Data My Impression: Chest x-ray: Per my interpretation there is an elevated right hemidiaphragm. No acute disease. Radiologist's Impression: Chest X-Ray 04/03/21 09:29 XR chest 1V portable CLINICAL HISTORY: Atypical chest pain TECHNIQUE: Single frontal radiograph of the chest was obtained. Comparison: Comparison is made to chest one view 09/17/2015 FINDINGS: No lines and tubes are seen. Cardiomegaly is noted. Biliary atelectasis versus scarring is again noted in the right lower lung. No evidence of pleural effusion or pneumothorax. IMPRESSION: Cardiomegaly without acute abnormality. Radiodensity noted in the right lower lung likely represents calcified granuloma seen on prior CT. ACT 112: Negative or not required by law. Electronically signed by: Zuhair Hanson M.D. 04/03/2021 9:53 AM ECG Data Attestation: I personally reviewed and interpreted this ECG as follows: Additional Comments: Twelve-lead EKG: Per my interpretation there is a normal sinus rhythm at a rate of 84. Inferior ST elevations with ST depressions and T wave inversions anteriorly. No PVCs. Normal QTC. Findings are consistent with an acute ST elevation inferior wall NV. MDM Narrative Patient presents with chest tightness that started at 7 AM today associated with some diaphoresis. He is a smoker. Currently takes no medications. Allergies to shellfish. Patient reports symptoms occurred while he is in bed. His twelve-lead EKG shows a normal sinus rhythm at a rate of [address] elevations inferiorly suggestive of an acute inferior wall NV. Chest x-ray did not show acute process. CBC and chemistry panel was unremarkable. Troponin is negative. The patient was given aspirin 324 mg p.o., Brilinta 180 mg p.o. and 5000 unit bolus of heparin. The patient was taken to the cardiac [facility] by interventional cardiology. Upon the presentation of the patient, the nurse showed me the EKG and a heart alert was called. Impression & Plan Acute NV, inferior wall Discharge Plan Visit Data Chief Complaint: Chest Pain Stated Complaint: CHEST PAIN,LEFT ARM FEELING FUNNY ED Provider: Jesús Tang Discharge Problem: Acute NV, inferior wall Patient Disposition: Home - Self-Care Discharge Instructions Interventions: ED Discharge Assessment Last Done: 04/03/21 10:01
--- NOTE | 2021-04-03 09:54 | XRay Report ---
XR chest 1V portable CLINICAL HISTORY: Atypical chest pain TECHNIQUE: Single frontal radiograph of the chest was obtained. Comparison: Comparison is made to chest one view 09/17/2015 FINDINGS: No lines and tubes are seen. Cardiomegaly is noted. Biliary atelectasis versus scarring is again note d in the right lower lung. No evidence of pleural effusion or pneumothorax. IMPRESSION: Cardiomegaly without acute abnormality. Radiodensity noted in the right lower lung likely represents calcified granuloma seen on prior CT. ACT 112: Negative or not required by law. Electronically signed by: Zuhair Hanson M.D. 04/03/2021 9:53 AM
[2021-04-03 09:58] LABS: Basophils # (auto) 0.08 K/uL (0-0.2); Basophils % (auto) 0.9 %; Eosinophils % (auto) 3.3 %; Hematocrit (blood only) 47.8 % (42-52); Immature Granulocytes # (auto) 0.02 K/uL (0.00-0.02); Immature Granulocytes % (auto) 0.2 %; Lymphocytes # (auto) 3.17 K/uL (1.2-3.4); Lymphocytes % (auto) 35.3 %; Mean Corpuscular Hemoglobin 30.6 pg (25-34); Mean Corpuscular Hgb Conc 35.6 g/dL (32-36); Mean Corpuscular Volume 86.1 fL (80-100); Monocytes # (auto) 0.92 K/uL (0.11-0.59); Monocytes % (auto) 10.3 %; Neutrophils # (auto) 4.48 K/uL (1.4-6.5); Platelet Count 233 K/uL (130-400); RDW Coefficient of Variation 12.5 % (11.5-14.5); RDW Standard Deviation 39.6 fL (36.4-46.3); Red Blood Count 5.55 M/uL (4.7-6.1); White Blood Count 8.97 K/uL (4.8-10.8)
--- NOTE | 2021-04-03 10:03 | Pre Anesthesia Assessment ---
Date of Service April 03, 2021 Pre Sedation Assessment Vital Signs Temp Pulse Pulse Resp BP BP Pulse Ox 04/03/21 09:59 93 H 18 159/105 H 98 04/03/21 09:43 98 04/03/21 09:20 97.9 F 91 H 18 152/107 H 97 Cardiovascular RRR, no murmur, no edema Respiratory normal respiratory effort, lungs clear to auscultation Pre-Sedation Airway Assessment Smoking Status: Current every day smoker Hx Sleep Apnea: No Hx Difficult Intubation: No Short, Thick Neck: No Thyromental Distance: > or= 3.5 Finger Breadths Oral Cavity: + WNL Mallampati Class: III ASA: ASA3 Procedure Planning Contraindications for Sedation: none Current Medications Reviewed: Yes Notes The planned sedation has been discussed with the patient. Informed Consent was obtained. I have identified the patient, determined the appropriateness of sedation and have assessed the patient immediately prior to the procedure. All medicine(s) and interventions are by my order.
--- NOTE | 2021-04-03 10:07 | Cardiology Consultation ---
Date of Consultation April 03, 2021 Assessment & Plan (1) Acute IN, inferior wall: Presentation consistent with inferior STEMI and recommend proceeding with emergent cardiac catheterization and likely primary PCI. No apparent contraindications to procedure. Discussed risks, benefits, alternatives of procedure with patient and they are willing to proceed. Further recommendations pending findings of coronary angiography. History of Present Illness History of Present Illness 60-year-old man here with acute chest pain and ECG concerning for acute IN. Patient seen emergently in the ED after heart alert activated on arrival. No significant cardiac history. Reports rheumatic fever as a child but no history of valvular disease. Medical history remarkable for type 2 diabetes with peripheral neuropathy and prior diabetic foot ulcers, hypertension, dyslipidemia, tobacco abuse. Reports family history of CAD. Chest pain began this morning with waking, ~7AM, 2hrs before arrival. Describes substernal/left-sided chest pain with associated nausea. Denies similar symptoms in the past. Chest pain at time of arrival 10/11. Hemodynamically stable. EKG showed subtle inferior ST elevations. Given heparin, aspirin and ticagrelor in ED. Allergies Allergy/AdvReac Type Severity Reaction Status Date / Time shellfish derived Allergy Intermediate THOAT Verified 09/15/20 10:05 [facility] Medications Medication Instructions Recorded Confirmed Type losartan 25 mg tablet 25 mg PO DAILY #30 tab 06/17/20 09/14/20 Rx blood sugar diagnostic (OneTouch #50 ea 06/18/20 09/14/20 Rx Ultra Blue Test Strip) atorvastatin 80 mg tablet 80 mg PO QAM #90 tab 09/14/20 09/15/20 Rx Patient History Medical History Benign essential hypertension Hyperlipidemia Peripheral neuropathy Prostate cancer screening Tobacco use disorder Surgical History History of colonoscopy Status post ORIF of fracture of ankle "left" Family History Father Heart disease Prostate cancer Mother Diabetes Myocardial infarction Denies family history of Ovarian cancer Breast cancer Colorectal cancer Social History Smoking Status: Current every day smoker Tobacco Type: Cigarettes Hx Alcohol Use: Yes Alcohol type: beer Alcohol Intake Frequency: Monthly or Less Hx Substance Use: No Preferred Language: Libyan Communication Ability: Effective Visual Impairment: Limited Hearing Ability: Normal Beliefs That Will Affect Care: None marital status: single Current Living Situation: Alone Current Living Situation Comment: ex- current occupational status: employed current occupation: currently off work on medical leave How many Children do You have: 0 Feels Safe at Home: Yes during the past year weight has: remained stable Review of Systems Review of Systems: Not obtained in the setting of emergent situation Physical Exam Physical Exam: General: Uncomfortable, diaphoretic HEENT: Sclerae anicteric Lungs: Clear to auscultation bilaterally, no crackles or wheezes Cardiac: Regular rate and rhythm, no murmurs. Vascular: 2+ radial Abdomen: Soft, nontender Extremities: Well perfused, no peripheral edema Neuro: Nonfocal Psych: Alert orient x3, normal affect and mood Results & Data ([facility]) Vital Signs (Past 12 Hours) Vital Signs Temp Pulse Pulse Resp BP BP Pulse Ox 04/03/21 09:59 93 H 18 159/105 H 98 04/03/21 09:43 98 04/03/21 09:20 97.9 F 91 H 18 152/107 H 97 PG Care Time/CCT Total # of Minutes Spent Total Time Spent with Patient: Total time spent is greater than 50% in coordination of care (as documented) at patient's floor/unit and/or counseling patient: Coding Level of Care Code 94739 Inpt Consult Level 4 Diagnoses Acute IN, inferior wall I21.19
[2021-04-03 10:13] LABS: Partial Thromboplastin Ratio 1.1; Partial Thromboplastin Time 28.7 Seconds (21.0-31.0); Prothrombin Time 10.2 Seconds (9.0-12.0)
[2021-04-03 10:15] LABS: Albumin Level 3.8 gm/dl (3.4-5.0); Calcium 9.3 mg/dl (8.5-10.1); Creatinine Clr Calc Pharmacy 109.4 ml/min; Est GFR (African American) 102.9 ml/min; Est GFR (Non-African American) 88.8 ml/min; Potassium 4.1 mmol/L (3.5-5.1)
[2021-04-03 10:19] LABS: Albumin Globulin Ratio 0.9 (0.9-2); Bilirubin,Total 0.5 mg/dl (0.2-1); Globulin 4.1 gm/dl (2.5-4.0); Total Protein 7.9 gm/dl (6.4-8.2); Troponin I 0.035 ng/ml (0-0.045)
--- NOTE | 2021-04-03 10:30 | History & Physical Report ---
Date of Service April 03, 2021 Assessment & Plan (1) Acute AR, inferior wall: Plan: Patrice is a 60-year-old male with past medical history of type 2 diabetes mellitus with ulcers, neuropathy, hyper lipidemia, and tobacco use who presented to the emergency department with chest pain since 7 AM. No associated nausea, shortness of breath, diaphoresis. No prior cardiac history. Heart alert called in the emergency department, patient with 5/10 chest pain at time of cardiology evaluation and EKG showing inferior ST elevations, patient given heparin/aspirin/Brilinta and pending PCI. STEMI Chest pain beginning 7 AM 04/03/2021 EKG: Sinus rhythm. ST segment elevation in inferior/lateral leads consistent with inferior STEMI. QTc 463, ME 168, QRS 114 Heart alert called, patient given aspirin/Brilinta, heparinized, and taken for emergent PCI. Discussed case with Dr. Partida. Patient with severe coronary artery disease, culprit vessel likely circumflex which had a 99% occlusion and distal disease. Patient underwent PCI with 1 stent to OM 2 and an additional stent to OM 3. Patient also has diffuse severe RCA disease, moderate LAD disease. Anticipate return to Calender Let Off Operator tomorrow for reevaluation and potential stenting of RCA. Patient on Brilinta, trend troponins, repeat echo for the morning. Continue ARB, atorvastatin. Metoprolol tartrate 25 mg p.o. twice daily added. PCI: As above Hemoglobin 17 Creatinine at baseline, less than 0.92 on admission BSG 150 No transaminitis Troponin trended Last lipid profile 08/22: Trig 247/cholesterol 232/LDL 153/HDL 30. Continue atorvastatin 80 as below Lipase 180 CXR: Cardiomegaly without acute abnormality. Radiodensity in right lower lung likely representing calcified granuloma seen on prior CT. Patient has not been taking his medications prior to admission Reinforced and counseled patient on the importance of his medications and treatment of his underlying conditions, and on the risk for his STEMI. Continue atorvastatin 80 mg daily Continue losartan 25 mg daily Metoprolol tartrate 25 mg p.o. twice daily, uptitrate based on blood pressure DAPT x1 year Anticipate PCI Sunday or Sunday for residual disease after dye washout (2) Type 2 diabetes with complication: Plan: Type 2 diabetes mellitus Last A1c 08/05/2020 6.1% Patient with poor understanding of the effect of his diabetes on his ulcer and heart disease. Somewhat resistant to counseling. Repeat A1c pending. (3) Benign essential hypertension: Plan: Hypertension Blood pressure previously well controlled on losartan 25 mg daily (4) Hyperlipidemia: Plan: Hyperlipidemia Continue atorvastatin 80 mg daily Noncompliant to this prior to admission, discussed the importance of statin therapy to both lower his LDL which has been greater than 130, reduce risk of future heart attack, and stabilize plaques on the vogel. (5) Tobacco use disorder: Plan: Tobacco use Current tobacco use, both cigarettes and chew Patient does not express interest in quitting Requests to use his chew during post catheterization history follow-up, again reinforced the effect of tobacco use on heart attack risk and the severity of his STEMI presentation. 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 Calluses noted between right fourth lateral and left fifth lateral toe without ulceration/infection. Doxycycline completed 09/2020 for ? superimposed cellulitis No signs of active infection at this time (7) Diabetic peripheral neuropathy associated with type 2 diabetes mellitus: Plan: See above Plan: DVT prophylaxis: SCDs, patient aspirin/heparin/Brilinta as above defer additional pharmacal prophylaxis at this time pending reevaluation Diet: DM2, n.p.o. at midnight for possible cath reevaluation tomorrow morning Disposition: ICU following PCI CODE STATUS: Full code History of Present Illness Chief Complaint: Chest pain Primary Care Provider: Oscar Pritchard MD Patrice is a 60-year-old male with past medical history of type 2 diabetes mellitus with ulcers, neuropathy, hyper lipidemia, and tobacco use who presented to the emergency department with chest pain since 7 AM. No associated nausea, shortness of breath, diaphoresis. No prior cardiac history. Heart alert called in the emergency department, patient with 5/10 chest pain at time of cardiology evaluation and EKG showing inferior ST elevations, patient given heparin/aspirin/Brilinta and pending PCI. At time of bedside assessment patient reports his pain is completely resolved and is a 0/10. He reports before presenting it was a 5/10 and achy in quality in his left chest and spreading down his left shoulder and arm. He reports he did have an episode of sweating/diaphoresis with the symptoms this morning. This has resolved. Denies shortness of breath, difficulty breathing, lightheadedness, dizziness, syncope, presyncope. Denies nausea/vomiting/diarrhea/constipation. Is hungry and would like to eat. Patrice seen in the ICU following PCI. He reports that he does not believe he is a diabetic, and has not needed medicine for this. Reports he has had elevated A1c and cholesterol. Reports that he was told he should take atorvastatin as an outpatient, reports this was prescribed but he did not fill or take this due to cost and prior history of an arm ache while on a statin. Reports he smokes a pack of cigarettes every couple of days and chews several times daily. Requests chew while inpatient, offered an ELEMENTARY SUMMER SCHOOL TEACHER to which patient declines. Discussed pathophysiology of patient's medical conditions and presentation with him. He declines tobacco cessation resources and is not interested in reducing or becoming tobacco free. Denies chest pressure, chest pain, shortness of breath, dyspnea, leg swelling prior to his episode today.. Medical History: Reviewed Medications: Reviewed. Of note patient prescribed atorvastatin, has not taken this. Surgical History: Reviewed Allergies: Reviewed Social History: Endorses tobacco use as noted above, social alcohol use, no recreational drug use Code Status: Full code Allergies Allergy/AdvReac Type Severity Reaction Status Date / Time shellfish derived Allergy Intermediate THOAT Verified 09/15/20 10:05 [facility] Medications Medication Instructions Recorded Confirmed Type losartan 25 mg tablet 25 mg PO DAILY #30 tab 06/17/20 09/14/20 Rx blood sugar diagnostic (OneTouch #50 ea 06/18/20 09/14/20 Rx Ultra Blue Test Strip) atorvastatin 80 mg tablet 80 mg PO QAM #90 tab 09/14/20 09/15/20 Rx Past Med/Surg History Medical History Benign essential hypertension Hyperlipidemia Peripheral neuropathy Prostate cancer screening Tobacco use disorder Surgical History History of colonoscopy Status post ORIF of fracture of ankle "left" Family History Father Heart disease Prostate cancer Mother Diabetes Myocardial infarction Denies family history of Ovarian cancer Breast cancer Colorectal cancer Social History Smoking Status: Current every day smoker Tobacco Type: Cigarettes Hx Alcohol Use: Yes Alcohol type: beer Alcohol Intake Frequency: Monthly or Less Hx Substance Use: No Preferred Language: Korean Communication Ability: Effective Visual Impairment: Limited Hearing Ability: Normal Beliefs That Will Affect Care: None marital status: single Current Living Situation: Alone Current Living Situation Comment: ex- current occupational status: employed current occupation: currently off work on medical leave How many Children do You have: 0 Feels Safe at Home: Yes during the past year weight has: remained stable Review of Systems Review of Systems: All systems reviewed & are unremarkable except as noted in HPI & below Physical Exam Physical Exam: General: A&Ox3. NAD. Cooperative. HEENT: Atraumatic, normocephalic. Visual acuity and hearing grossly intact. Pulm: CTAB A&P. -wheezes, -rales, -rhonchi. Symmetrical chest rise. No increase work of breathing. No respiratory distress. Cardiac: RRR, -mrg. Radial pulses intact and symmetrical. Abdominal: Nontender, nondistended, soft. BS present. Extremities: Warm, dry. Left hallux ulceration, dry, no surrounding erythema/discharge. Right wrist with dressing/pulse stent band in place. Cap refill brisk in fingers and toes bilaterally. Results & Data Results & Data ([facility]) Vital Signs (Past 12 Hours) Vital Signs Temp Pulse Pulse Resp BP BP Pulse Ox 04/03/21 09:59 93 H 18 159/105 H 98 04/03/21 09:43 98 04/03/21 09:20 36.6 C 91 H 18 152/107 H 97 PG Care Time/CCT Total # of Minutes Spent Total Time Spent with Patient: Total time spent is greater than 50% in coordination of care (as documented) at patient's floor/unit and/or counseling patient: Coding Level of Care Code 43417 Initial Inpt Care Lvl 3 Diagnoses Acute AR, inferior wall I21.19 Type 2 diabetes with complication E11.8 Benign essential hypertension I10 Hyperlipidemia E78.5 Tobacco use disorder F17.200 Diabetic ulcer of left great toe E11.621; L97.529 Diabetic peripheral neuropathy associated with type 2 diabetes mellitus E11.42
--- NOTE | 2021-04-03 11:43 | Post Anesthesia Assessment ---
Date of Service April 03, 2021 Post Sedation Assessment Vital Signs Temp Pulse Pulse Resp BP BP Pulse Ox 04/03/21 11:35 86 16 129/98 96 04/03/21 09:59 93 H 18 159/105 H 98 04/03/21 09:43 98 04/03/21 09:20 97.9 F 91 H 18 152/107 H 97 Recovery Score Activity: Moves 4 extremities Respiration: Deep Breath/Cough Circulation: +/-20% PreAnes Value Consciousness: Fully Awake Oxygen Saturation: > 92% On Room Air Post Anesthesia Score: 10 Discharge Sedation Level of Care: Fast Track Phase II Post Sedation Plan On clinical assessment, the patient appears to have tolerated the sedation without complications. Patient is recovering as anticipated. Patient will continue to be monitored by nursing and may be discharged when sedation discharge criteria are met per below protocol. Upon Completions of procedure up to 15 minutes continue every 5 minute vital signs and the P.A.R. score; then discharge to a Phase I or Fast Track to Phase II per the following guidelines: * Discharge Patient to appropriate Phase II area if PAR is 8 or greater or return to pre- procedure baseline. The post - procedure orders will be as directed. * If PAR score is less than 8 or not return to pre-procedure baseline then patient will follow Phase I monitoring till PAR is reached for Phase II. The Phase I may be done in procedure room or may call to secure a Phase I area. * If naloxone or flumazenil are used for reversal, hold in Phase I for continued monitoring from when last reversal dose was given for a minimum of 60 minutes or longer pending the nurse and/or physician discretion of patient condition before discharge to Phase II. Please call the Sedation Physician to re-evaluate and complete post-note for discharge to Phase II area. Do NOT discharge from procedure sedation or Phase 1 until post- sedation evaluation note is complete by procedure /sedation MD Sedation Discharge Instructions to be given to the patient at discharge to home.
[2021-04-03] MEDS ORDERED: ONDANSETRON INJ 2 MG/ML 2 ML VIAL IV PRN (11:45)
[2021-04-03] MEDS ORDERED: ACETAMINOPHEN 325 MG TAB PO PRN (11:45)
[2021-04-03] MEDS ORDERED: NITROGLYCERIN SL 0.4 MG/TAB TAB SL PRN (11:48)
[2021-04-03] MEDS ORDERED: ICU PROTOCOL FOR HYPERGLYCEMIA PRN (11:53)
[2021-04-03] MEDS ORDERED: SODIUM CHLORIDE 0.9% 1000ML 1,000 ML IV SCH (12:00)
--- NOTE | 2021-04-03 12:15 | Cardiac Catheterization ---
[facility] Data: Turf Manager Cardiac Status Clinical evaluation leading to the procedure CAD Presenation: STEMI Anginal Classification: CCS IV Cardiogenic Shock within 24 Hours: No Cardiac Arrest within 24 Hours: No Imaging Studies Past 6 Months: Yes Stress Studies Past 6 Months: No Diagnostic Physicians Name: Nikolai Partida MD Closure Device Percutaneous Entry Location: Radial Closure Device: Radial Band Recommendations: PCI without planned CABG PCI Indication: Immediate PCI for STEMI Lesion Segment Name: Distal circumflex Culprit Artery: Yes Stenosis Prior to Rx (%): 99 Chronic Total Occlusion: No IVUS: No FFR: No Pre-Procedure HALIMA Flow: 2 Previously Treated Lesion: No Lesion Complexity: High/C Lesion Length (mm): 25 Thrombus Present: Yes Bifurcation Lesion: Yes Guidewire Across Lesion: Stenosis Post-Procedure (%): 0 Post-Procedure HALIMA F low: 3 Devices(s) Deployed: Yes Yes Intraprocedure Events Significant Disection: No Perforation: No Cardiac Cath Procedure Full Procedure Date April 03, 2021 Pre-Procedure Diagnosis Pre-Procedure Diagnosis: STEMI AUC Score AUC Score: 9 Post-Procedure Diagnosis Post-Procedure Diagnosis: Severe CAD and Successful PCI Procedure(s) Performed Procedure(s) Performed: Coronary Angiography and Drug Eluting Stent Actuarial Trainee Nikolai Partida MD Cloth Coverer(s) Bell Estimated Blood Loss Estimated Blood Loss: 15 Medication(s) Medication(s): Fentanyl, Heparin, Lidocaine 1%, Nicardipine, Nitroglycerin and Versed Medication(s): Ticagrelor Summary of Findings Indication: Inferior STEMI/Heart Alert Access: 6 Fr right radial artery Catheters: [place], EBU 3.5 guide Findings: LM -medium caliber, luminal irregularities LAD -medium caliber, diffuse proximal to mid disease up to 30%, 60% focal distal stenosis. Remainder of vessel without significant disease and wraps around apex. Circumflex -medium caliber, 50% ostial stenosis, 99% distal stenosis just before takeoff of large OM 3. 70% proximal OM3, 70% proximal left PLB. RCA -dominant, small to medium caliber, 80% mid segment stenosis, 95% distal stenosis. Small, underfilled PDA without significant disease. Subtotal occlusion after PDA prior to small PLB's. -- PCI -- Antithrombotic therapy: Heparin, ticagrelor Procedure: Left main cannulated with EBU 3.5 guide Rn L And D 50 wire passed across lesion into distal OM 3 [place] wire placed into distal left PLB Distal circumflex/OM 3 lesion predilated with 2.5 compliant balloon Proximal left PLB dilated with 2.5 balloon Proximal left PLB stented with 2.25 x 12 mm Shelby drug-eluting stent Stent postdilated with stent balloon Dilated distal circumflex into OM 3 lesion stented with 2.5 x 30 mm Shelby TAY. Stent across takeoff of vessel into PLB PLB rewired with pilot plant research technician 50 wire Distal circumflex/OM 3 stent post-dilated with 3.0 noncompliant balloon IC vasodilators administered for spasm Post procedure HALIMA 3 flow, stents well expanded with minimal residual stenosis, no branch vessel compromise and no other apparent cardiac complications. Arterial Closure: TR band Summary: 1. Inferior STEMI/acute 99% distal circumflex stenosis prior to bifurcation with OM 3/left PLB 2. Severe non-culprit coronary artery disease -80% mid RCA, 95% distal RCA. Subtotally occluded small right posterior AV branch 60% focal distal LAD 3. Successful PCI of distal circumflex into OM 3 with 2.5 x 30 mm Shelby drug- eluting stent; postdilated with 3.0 NC. 4. Successful PCI of proximal left PLB with 2.25 x 12 mm Shelby drug-eluting stent. Recommendations: Admit to ICU for continued monitoring Loaded with ticagrelor 180 mg Continue dual-antiplatelet therapy for at least 1 year. Trend troponins until peak, Check Echo Uptitrate beta-beth/ACRB as BP allows High-dose statin Consult cardiac Rehab Plan for staged PCI of mid/distal RCA during this hospitalization. Hemodynamics Rest Ao:: 151/93/119 Final Ao: 138/87/110 LV: -- Recommendations Recommendations: PCI without planned CABG Specimens Specimens: None Radiation Exposure (mGy) 3817 Contrast (mls) 130 Fluids (cc crystalloids) Fluids (cc crystalloids): 150 Drains Drains: None Anesthesia Moderate 1152-3403 Procedural Complication(s) None Disposition ICU I attest to the content of the Intraoperative Record and any orders documented therein. Any exceptions are noted below. [employer] Card Cath Procedure Codes Cardiac Catheterization Procedure 1: Cardiovascular Cath Procedures: 07771 Coronaries Moderate Sedation Procedure 1: Sedation/Anesthesia: 29024 Mod Sedation by the same physician;Init15 Min Child Age 5 & Up Procedure 2: Sedation/Anesthesia: 82054 Mod Sedation by the same physician; Ea [id number] Minutes Stenting Procedure 1: Cardiovascular Stent Procedures: 36378 Perc transluminal revascularization of acute sub/total occl, aMI PG Care Time/CCT Total # of Minutes Spent Total Time Spent with Patient: Total time spent is greater than 50% in coordination of care (as documented) at patient's floor/unit and/or counseling patient:
[2021-04-03] MEDS ORDERED: LOSARTAN POTASSIUM 25 MG TAB PO ONE (13:20)
[2021-04-03] MEDS ORDERED: FLUARIX QUADRIVALENT 0.5 ML SYR IM ONE (13:21)
--- NOTE | 2021-04-03 13:57 | Critical Care Consultation ---
Date of Consultation April 03, 2021 Assessment & Plan (1) Acute DC, inferior wall: Continue dual antiplatelet therapy, beta-beth, ROSALBA inhibitor and high- dose statin. Set to undergo staged PCI of the mid/distal RCA likely tomorrow. Echo ordered. Trend troponins. (2) Benign essential hypertension: Cardiology ordered losartan. We will continue to monitor. (3) Diabetic peripheral neuropathy associated with type 2 diabetes mellitus: Glycemia management per the ICU pharmacist team (4) Tobacco use disorder: Strongly encouraged smoking cessation. History of Present Illness Reason for Consultation: Post PCI management Attending Physician: Spenser Gardner MD History of Present Illness 60-year-old mal with a past medical history of obesity, diabetes mellitus type 2, neuropathy, hyperlipidemia and tobacco abuse who presented to the emergency department this morning with chest pain. Heart alert was called and he was taken to the Trains Dispatcher Supervisor due to inferior ST elevations. He was given heparin, aspirin and Brilinta. He continues to smoke tobacco. He notes that his pain has currently resolved. He underwent a heart catheterization. Found to have 99% distal circumflex stenosis. Underwent 2 drug-eluting stents. Will undergo PCI of the mid/distal RCA later this hospitalization. Allergies Allergy/AdvReac Type Severity Reaction Status Date / Time shellfish derived Allergy Intermediate THOAT Verified 09/15/20 10:05 [facility] Medications Medication Instructions Recorded Confirmed Type losartan 25 mg tablet 25 mg PO DAILY #30 tab 06/17/20 09/14/20 Rx blood sugar diagnostic (OneTouch #50 ea 06/18/20 09/14/20 Rx Ultra Blue Test Strip) atorvastatin 80 mg tablet 80 mg PO QAM #90 tab 09/14/20 09/15/20 Rx Patient History Medical History Benign essential hypertension Hyperlipidemia Peripheral neuropathy Prostate cancer screening Tobacco use disorder Surgical History History of colonoscopy Status post ORIF of fracture of ankle "left" Family History Father Heart disease Prostate cancer Mother Diabetes Myocardial infarction Denies family history of Ovarian cancer Breast cancer Colorectal cancer Social History Smoking Status: Current every day smoker Tobacco Type: Cigarettes Cigarettes Per Day: 10; Do You Dip or Chew Tobacco: Yes; Tobacco Cessation Education Requested by Patient: No Hx Alcohol Use: Yes Alcohol type: beer Alcohol Intake Frequency: Monthly or Less Hx Substance Use: No Preferred Language: Vietnamese Communication Ability: Effective Visual Impairment: Limited Hearing Ability: Normal Classroom Teacher Required: No Beliefs That Will Affect Care: None marital status: single Current Living Situation: Significant Other Current Living Situation Comment: ex- current occupational status: employed current occupation: currently off work on medical leave How many Children do You have: 0 Other Information That Helps Us Care for You: No Feels Safe at Home: Yes Safety Concerns: Feels Safe At This Time during the past year weight has: remained stable Assistive Devices: Glasses Review of Systems Review of Systems: All systems reviewed & are unremarkable except as noted in HPI & below Physical Exam Physical Exam: Constitutional: Patient appears to be of their stated age. Patient is in no apparent distress. Patient is well-developed. Eyes: Pupils are equal round and reactive to light. Conjunctivae are normal. Anicteric sclera. Ears nose, mouth and throat: No obvious deformities Neck: Trachea is midline. Visual inspection is normal. Respiratory: Clear to auscultation bilaterally. Cardiovascular: Regular rate and rhythm. No murmurs. Right radial TR band. Gastrointestinal: Normal bowel sounds, soft, nontender and nondistended. No hepatosplenomegaly noted. Musculoskeletal: No cyanosis. Patient is able to move all extremities. Strength is 5 out of 5 in the upper and lower extremities. Skin: No rashes, warm dry and intact. Neurologic: No obvious focal neurological deficits seen. Psychiatric: Alert and oriented x3 with a euthymic affect. Results & Data Results & Data ([facility]) Vital Signs (Past 12 Hours) Vital Signs Temp Pulse Pulse Resp BP BP Pulse Ox 04/03/21 13:15 84 21 150/105 H 96 04/03/21 13:06 97.5 F L 83 14 145/98 H 96 04/03/21 13:00 170/110 H 97 04/03/21 12:45 87 14 168/118 H 93 04/03/21 12:30 88 19 144/102 H 97 04/03/21 12:05 82 16 139/85 96 04/03/21 11:50 81 16 141/98 H 96 04/03/21 11:35 86 16 129/98 96 10/31/21 09:59 93 H 18 159/105 H 98 04/03/21 09:43 98 04/03/21 09:20 97.9 F 91 H 18 152/107 H 97 Chest x-ray reviewed. Old granuloma seen along the right hemidiaphragm. This correlates with CT chest from 2017. Coding Level of Care Code 06146 Inpt Consult Level 3 Diagnoses Acute DC, inferior wall I21.19 Benign essential hypertension I10 Diabetic peripheral neuropathy associated with type 2 diabetes mellitus E11.42 Tobacco use disorder F17.200
[2021-04-03] MEDS: TICAGRELOR 90 MG TAB PO SCH (22:13)
[2021-04-03] MEDS: METOPROLOL TARTRATE 25 MG TAB PO SCH (22:13)
[2021-04-04 05:24] LABS: Basophils # (auto) 0.05 K/uL (0-0.2); Basophils % (auto) 0.4 %; Eosinophils # (auto) 0.13 K/uL (0-0.5); Hematocrit (blood only) 45.2 % (42-52); Immature Granulocytes # (auto) 0.02 K/uL (0.00-0.02); Immature Granulocytes % (auto) 0.2 %; Lymphocytes # (auto) 2.86 K/uL (1.2-3.4); Lymphocytes % (auto) 22.7 %; Mean Corpuscular Hemoglobin 30.2 pg (25-34); Mean Corpuscular Hgb Conc 35.4 g/dL (32-36); Mean Corpuscular Volume 85.4 fL (80-100); Mean Platelet Volume 8.8 fL (7.4-10.4); Monocytes # (auto) 1.11 K/uL (0.11-0.59); Monocytes % (auto) 8.8 %; Neutrophils # (auto) 8.44 K/uL (1.4-6.5); Neutrophils % (auto) 66.9 %; Platelet Count 231 K/uL (130-400); RDW Coefficient of Variation 12.5 % (11.5-14.5); RDW Standard Deviation 39.1 fL (36.4-46.3); Red Blood Count 5.29 M/uL (4.7-6.1); White Blood Count 12.61 K/uL (4.8-10.8)
[2021-04-04 06:01] LABS: BUN Creatinine Ratio 15.1 (10-20); Blood Urea Nitrogen 13 mg/dl (7-18); Calcium 9.1 mg/dl (8.5-10.1); Carbon Dioxide 22 mmol/L (21-32); Chloride 103 mmol/L (98-107); Chol HDL Ratio 9; Cholesterol 237 mg/dl (0-200); Creatinine Clr Calc Pharmacy 115.7 ml/min; Est GFR (African American) 107.2 ml/min; Est GFR (Non-African American) 92.5 ml/min; Glucose 143 mg/dl (70-99); HDL Cholesterol 28 mg/dl; LDL Cholesterol Direct 152 mg/dl; Phosphorus 2.7 mg/dl (2.5-4.9); Sodium 132 mmol/L (136-145); Triglycerides 248 mg/dl (0-150); VLDL Cholesterol 50 mg/dl
[2021-04-04 07:09] LABS: Magnesium 2.4 mg/dl (1.8-2.4); Potassium 4.5 mmol/L (3.5-5.1)
[2021-04-04] MEDS: METOPROLOL TARTRATE 25 MG TAB PO SCH (08:01)
[2021-04-04] MEDS: LOSARTAN POTASSIUM 25 MG TAB PO SCH (08:01)
[2021-04-04] MEDS: ASPIRIN 81 MG ECTAB PO SCH (08:01)
[2021-04-04] MEDS: ATORVASTATIN 40 MG TAB PO SCH (08:01)
[2021-04-04] MEDS: TICAGRELOR 90 MG TAB PO SCH ×2 (08:01→20:47)
--- NOTE | 2021-04-04 08:32 | Critical Care Progress Note ---
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 Remains in ICU for close HD monitoring. NEURO: CAM-ICU negative. A/O x3. No acute concerns. CARDIAC/VASCULAR: STEMI: s/p 2 TAY. Plan to undergo PCI of the mid/distal RCA today. Continue dual antiplatelet therapy, beta-beth, ROSALBA-inhibitor, and high-dose statin. Tobacco use disorder: encourage smoking cessation. Patient reports smoking ~ 1ppd. RESPIRATORY: Atelectasis. Encourage IS use. Otherwise no acute concerns. Maintaining O2 saturation of 95% on room air. GI/NUTRITION: No acute concerns. NPO in preparation for PCI today. RENAL/LYTES: ICU electrolyte replacement protocol. GENITOURINARY: No acute concerns. ENDO: DM II -- ICU glycemic protocol. HEME: No acute concerns. ID: Mild leukocytosis at 12.61. Likely reactive. Will continue to monitor. Code status: Full Code (2) Benign essential hypertension: (3) Diabetic peripheral neuropathy associated with type 2 diabetes mellitus: (4) Tobacco use disorder: (5) Hyperlipidemia: Admission and Anticipated Discharge Date Admission Date: April 03, 2021 Supervising Physician Co-Signing Physician Notes Dr. Machado was the resident-physician during care of patient. I separately evaluated patient for nuno portions of the history and the exam. I was present during the critical portion of medical decision making, and I discussed the case with the resident. I generally agree with the findings and plan except for any additions/exceptions noted. Patient seen and examined at bedside. No acute distress, no adverse events overnight Patient denies any chest pain, no dizziness, no headache, no nausea, no vomiting She had 2 stents placed in the mid/distal RCA on 04/03/2021 Constitutional: No acute distress HEENT: EOMI, PERRLA Respiratory system: Good air entry bilaterally, no wheeze, no rhonchi, minimal crackles bilateral lower lobes CVS: S1-S2 positive, no murmurs or gallops Abdomen: Soft, nontender, nondistended, positive bowel sounds x4 Extremities: +2 pulses bilaterally radialis/ dorsalis pedis, no cyanosis, no edema Neuro: Awake alert oriented x3 Psych: Normal mood and affect G/U: No Quinonez. Plan: In/out: +1650, no documented urine output Patient had repeat cath today for stent but unfortunately they were not able to put a new stent in He did have an episode of hypotension Case Hardener for which she was given bolus and started on dopamine We will try to gradually taper off dopamine Patient does have history of smoking He will benefit from outpatient PFTs. Consideration of Incruse inhaler could also be thought off later on Please note the above document was generated using voice recognition software. It may contain grammatical, syntax or spelling errors.Any formal questions or concerns about the content, text or information contained within the body of this dictation should be directly addressed to the provider for clarification. Subjective Patient seen and evaluated at bedside this morning. Resting comfortably. Currently without any concerns or questions. Denies BARDALES, CP, SOB, cough, abdominal pain, nausea, or vomiting. Patient awaiting PCI today. Patient does note a hx of HTN, HLD, and DMII. Reports hx of smoking "off and on" up to 1ppd. Family hx of cardiac disease in both mother and father. 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 Review of Systems Review of Systems: All systems reviewed & are unremarkable except as noted in HPI & below Physical Exam Physical Exam: GENERAL: No acute distress. Well developed and well nourished. Vital signs reviewed as above. EYES: EOMI. Anicteric sclerae. HENT: Moist mucous membranes. RESPIRATORY: Clear to auscultation bilaterally. No wheezing, rales, or rhonchi. CARDIOVASCULAR: Regular rate and rhythm. No murmurs. ABDOMEN: Soft, non-tender and non-distended. Normal bowel sounds. EXTREMITIES: No edema. Non-tender. SKIN: Warm, dry. No rashes or lesions. NEUROLOGIC: A/O x3. No focal neurological deficits. PSYCHIATRIC: Cooperative. Appropriate mood and affect. Results & Data Results & Data ([facility]) Vital Signs (Past 12 Hours) Vital Signs Temp Pulse Pulse Resp BP BP Pulse Ox 04/04/21 08:09 77 112/81 04/04/21 07:29 37.1 C 04/04/21 07:00 68 16 104/74 95 04/04/21 06:23 67 14 103/71 96 04/04/21 05:30 69 18 106/66 95 04/04/21 04:37 37.0 C 69 16 128/83 95 04/04/21 03:20 74 20 117/81 96 04/04/21 02:00 76 18 93 04/04/21 01:00 79 17 93 04/04/21 00:00 37.1 C 84 21 152/98 H 92 04/03/21 23:00 84 19 138/89 94 04/03/21 22:00 91 H 24 143/92 H 93 Laboratory Results 04/04/21 04/04/21 04/04/21 Range/Units 07:23 06:12 05:08 WBC (4.8-10.8) K/uL RBC (4.7-6.1) M/uL Hgb (14.0-18.0) g/dL Hct (42-52) % MCV (80-100) fL MCH (25-34) pg MCHC (32-36) g/dL RDW Std Deviation (36.4-46.3) fL RDW Coeff of Denilson (11.5-14.5) % Plt Count (130-400) K/uL MPV (7.4-10.4) fL Immature Gran % (Auto) % Neut % (Auto) % Lymph % (Auto) % Grand % (Auto) % Eos % (Auto) % Baso % (Auto) % Neut # (Auto) (1.4-6.5) K/uL Lymph # (Auto) (1.2-3.4) K/uL Grand # (Auto) (0.11-0.59) K/uL Eos # (Auto) (0-0.5) K/uL Baso # (Auto) (0-0.2) K/uL Immature Gran # (Auto) (0.00-0.02) K/uL PT (9.0-12.0) Seconds INR (0.9-1.1) APTT (21.0-31.0) Seconds PTT Ratio Activ Coag Time Kaolin (94-140) SECONDS Sodium (136-145) mmol/L Potassium 4.5 (3.5-5.1) mmol/L Chloride (98-107) mmol/L Carbon Dioxide (21-32) mmol/L Anion Gap (3-11) BUN (7-18) mg/dl Creatinine (0.6-1.4) mg/dl Est Cr Clr Drug Dosing ml/min Est GFR ( Amer) ml/min Est GFR (Non-Af Amer) ml/min BUN/Creatinine Ratio (10-20) Glucose (70-99) mg/dl POC Glucose 126 H (70-99) mg/dl Estimat Average Glucose Pending Hemoglobin A1c Pending Calcium (8.5-10.1) mg/dl Phosphorus (2.5-4.9) mg/dl Magnesium 2.4 (1.8-2.4) mg/dl Total Bilirubin (0.2-1) mg/dl AST (15-37) U/L ALT (12-78) U/L Alkaline Phosphatase (45-117) U/L Troponin I (0-0.045) ng/ml Total Protein (6.4-8.2) gm/dl Albumin (3.4-5.0) gm/dl Globulin (2.5-4.0) gm/dl Albumin/Globulin Ratio (0.9-2) Triglycerides (0-150) mg/dl Cholesterol (0-200) mg/dl LDL Cholesterol Direct mg/dl LDL Cholesterol, Calc VLDL Cholesterol, Calc mg/dl HDL Cholesterol mg/dl Cholesterol/HDL Ratio Lipase (73-393) U/L Specimen Hemolysis Nasal Screen MRSA (PCR) (Negative) COVID-19 Eval Order SARS-CoV-2 (PCR) (Negative) 04/04/21 04/04/21 04/03/21 Range/Units 05:08 05:08 Unknown WBC 12.61 H (4.8-10.8) K/uL RBC 5.29 (4.7-6.1) M/uL Hgb 16.0 (14.0-18.0) g/dL Hct 45.2 (42-52) % MCV 85.4 (80-100) fL MCH 30.2 (25-34) pg MCHC 35.4 (32-36) g/dL RDW Std Deviation 39.1 (36.4-46.3) fL RDW Coeff of Denilson 12.5 (11.5-14.5) % Plt Count 231 (130-400) K/uL MPV 8.8 (7.4-10.4) fL Immature Gran % (Auto) 0.2 % Neut % (Auto) 66.9 % Lymph % (Auto) 22.7 % Grand % (Auto) 8.8 % Eos % (Auto) 1.0 % Baso % (Auto) 0.4 % Neut # (Auto) 8.44 H (1.4-6.5) K/uL Lymph # (Auto) 2.86 (1.2-3.4) K/uL Grand # (Auto) 1.11 H (0.11-0.59) K/uL Eos # (Auto) 0.13 (0-0.5) K/uL Baso # (Auto) 0.05 (0-0.2) K/uL Immature Gran # (Auto) 0.02 (0.00-0.02) K/uL PT (9.0-12.0) Seconds INR (0.9-1.1) APTT (21.0-31.0) Seconds PTT Ratio Activ Coag Time Kaolin (94-140) SECONDS Sodium 132 L (136-145) mmol/L Potassium (3.5-5.1) mmol/L Chloride 103 (98-107) mmol/L Carbon Dioxide 22 (21-32) mmol/L Anion Gap 7.0 (3-11) BUN 13 (7-18) mg/dl Creatinine 0.87 (0.6-1.4) mg/dl Est Cr Clr Drug Dosing 115.7 ml/min Est GFR ( Amer) 107.2 ml/min Est GFR (Non-Af Amer) 92.5 ml/min BUN/Creatinine Ratio 15.1 (10-20) Glucose 143 H (70-99) mg/dl POC Glucose (70-99) mg/dl Estimat Average Glucose Hemoglobin A1c Calcium 9.1 (8.5-10.1) mg/dl Phosphorus 2.7 (2.5-4.9) mg/dl Magnesium (1.8-2.4) mg/dl Total Bilirubin (0.2-1) mg/dl AST (15-37) U/L ALT (12-78) U/L Alkaline Phosphatase (45-117) U/L Troponin I (0-0.045) ng/ml Total Protein (6.4-8.2) gm/dl Albumin (3.4-5.0) gm/dl Globulin (2.5-4.0) gm/dl Albumin/Globulin Ratio (0.9-2) Triglycerides 248 H (0-150) mg/dl Cholesterol 237 H (0-200) mg/dl LDL Cholesterol Direct 152 mg/dl LDL Cholesterol, Calc Not Reportable VLDL Cholesterol, Calc 50 mg/dl HDL Cholesterol 28 mg/dl Cholesterol/HDL Ratio 9 Lipase (73-393) U/L Specimen Hemolysis Nasal Screen MRSA (PCR) (Negative) COVID-19 Eval Order SARS-CoV-2 (PCR) NEGATIVE (Negative) 04/03/21 04/03/21 04/03/21 Range/Units Unknown 23:36 22:30 WBC (4.8-10.8) K/uL RBC (4.7-6.1) M/uL Hgb (14.0-18.0) g/dL Hct (42-52) % MCV (80-100) fL MCH (25-34) pg MCHC (32-36) g/dL RDW Std Deviation (36.4-46.3) fL RDW Coeff of Denilson (11.5-14.5) % Plt Count (130-400) K/uL MPV (7.4-10.4) fL Immature Gran % (Auto) % Neut % (Auto) % Lymph % (Auto) % Grand % (Auto) % Eos % (Auto) % Baso % (Auto) % Neut # (Auto) (1.4-6.5) K/uL Lymph # (Auto) (1.2-3.4) K/uL Grand # (Auto) (0.11-0.59) K/uL Eos # (Auto) (0-0.5) K/uL Baso # (Auto) (0-0.2) K/uL Immature Gran # (Auto) (0.00-0.02) K/uL PT (9.0-12.0) Seconds INR (0.9-1.1) APTT (21.0-31.0) Seconds PTT Ratio Activ Coag Time Kaolin (94-140) SECONDS Sodium (136-145) mmol/L Potassium (3.5-5.1) mmol/L Chloride (98-107) mmol/L Carbon Dioxide (21-32) mmol/L Anion Gap (3-11) BUN (7-18) mg/dl Creatinine (0.6-1.4) mg/dl Est Cr Clr Drug Dosing ml/min Est GFR ( Amer) ml/min Est GFR (Non-Af Amer) ml/min BUN/Creatinine Ratio (10-20) Glucose (70-99) mg/dl POC Glucose 125 H (70-99) mg/dl Estimat Average Glucose Hemoglobin A1c Calcium (8.5-10.1) mg/dl Phosphorus (2.5-4.9) mg/dl Magnesium (1.8-2.4) mg/dl Total Bilirubin (0.2-1) mg/dl AST (15-37) U/L ALT (12-78) U/L Alkaline Phosphatase (45-117) U/L Troponin I 158.000 H* (0-0.045) ng/ml Total Protein (6.4-8.2) gm/dl Albumin (3.4-5.0) gm/dl Globulin (2.5-4.0) gm/dl Albumin/Globulin Ratio (0.9-2) Triglycerides (0-150) mg/dl Cholesterol (0-200) mg/dl LDL Cholesterol Direct mg/dl LDL Cholesterol, Calc VLDL Cholesterol, Calc mg/dl HDL Cholesterol mg/dl Cholesterol/HDL Ratio Lipase (73-393) U/L Specimen Hemolysis Nasal Screen MRSA (PCR) (Negative) COVID-19 Eval Order Covid19 at [facility] SARS-CoV-2 (PCR) (Negative) 04/03/21 04/03/21 04/03/21 Range/Units 17:32 16:41 12:27 WBC (4.8-10.8) K/uL RBC (4.7-6.1) M/uL Hgb (14.0-18.0) g/dL Hct (42-52) % MCV (80-100) fL MCH (25-34) pg MCHC (32-36) g/dL RDW Std Deviation (36.4-46.3) fL RDW Coeff of Denilson (11.5-14.5) % Plt Count (130-400) K/uL MPV (7.4-10.4) fL Immature Gran % (Auto) % Neut % (Auto) % Lymph % (Auto) % Grand % (Auto) % Eos % (Auto) % Baso % (Auto) % Neut # (Auto) (1.4-6.5) K/uL Lymph # (Auto) (1.2-3.4) K/uL Grand # (Auto) (0.11-0.59) K/uL Eos # (Auto) (0-0.5) K/uL Baso # (Auto) (0-0.2) K/uL Immature Gran # (Auto) (0.00-0.02) K/uL PT (9.0-12.0) Seconds INR (0.9-1.1) APTT (21.0-31.0) Seconds PTT Ratio Activ Coag Time Kaolin (94-140) SECONDS Sodium (136-145) mmol/L Potassium (3.5-5.1) mmol/L Chloride (98-107) mmol/L Carbon Dioxide (21-32) mmol/L Anion Gap (3-11) BUN (7-18) mg/dl Creatinine (0.6-1.4) mg/dl Est Cr Clr Drug Dosing ml/min Est GFR ( Amer) ml/min Est GFR (Non-Af Amer) ml/min BUN/Creatinine Ratio (10-20) Glucose (70-99) mg/dl POC Glucose 128 H (70-99) mg/dl Estimat Average Glucose Hemoglobin A1c Calcium (8.5-10.1) mg/dl Phosphorus (2.5-4.9) mg/dl Magnesium (1.8-2.4) mg/dl Total Bilirubin (0.2-1) mg/dl AST (15-37) U/L ALT (12-78) U/L Alkaline Phosphatase (45-117) U/L Troponin I > 200.000 H* (0-0.045) ng/ml Total Protein (6.4-8.2) gm/dl Albumin (3.4-5.0) gm/dl Globulin (2.5-4.0) gm/dl Albumin/Globulin Ratio (0.9-2) Triglycerides (0-150) mg/dl Cholesterol (0-200) mg/dl LDL Cholesterol Direct mg/dl LDL Cholesterol, Calc VLDL Cholesterol, Calc mg/dl HDL Cholesterol mg/dl Cholesterol/HDL Ratio Lipase (73-393) U/L Specimen Hemolysis Nasal Screen MRSA (PCR) Negative (Negative) COVID-19 Eval Order SARS-CoV-2 (PCR) (Negative) 04/03/21 04/03/21 04/03/21 Range/Units 11:17 10:43 09:45 WBC (4.8-10.8) K/uL RBC (4.7-6.1) M/uL Hgb (14.0-18.0) g/dL Hct (42-52) % MCV (80-100) fL MCH (25-34) pg MCHC (32-36) g/dL RDW Std Deviation (36.4-46.3) fL RDW Coeff of Denilson (11.5-14.5) % Plt Count (130-400) K/uL MPV (7.4-10.4) fL Immature Gran % (Auto) % Neut % (Auto) % Lymph % (Auto) % Grand % (Auto) % Eos % (Auto) % Baso % (Auto) % Neut # (Auto) (1.4-6.5) K/uL Lymph # (Auto) (1.2-3.4) K/uL Grand # (Auto) (0.11-0.59) K/uL Eos # (Auto) (0-0.5) K/uL Baso # (Auto) (0-0.2) K/uL Immature Gran # (Auto) (0.00-0.02) K/uL PT 10.2 (9.0-12.0) Seconds INR 1.0 (0.9-1.1) APTT 28.7 (21.0-31.0) Seconds PTT Ratio 1.1 Activ Coag Time Kaolin 241 H 197 H (94-140) SECONDS Sodium (136-145) mmol/L Potassium (3.5-5.1) mmol/L Chloride (98-107) mmol/L Carbon Dioxide (21-32) mmol/L Anion Gap (3-11) BUN (7-18) mg/dl Creatinine (0.6-1.4) mg/dl Est Cr Clr Drug Dosing ml/min Est GFR ( Amer) ml/min Est GFR (Non-Af Amer) ml/min BUN/Creatinine Ratio (10-20) Glucose (70-99) mg/dl POC Glucose (70-99) mg/dl Estimat Average Glucose Hemoglobin A1c Calcium (8.5-10.1) mg/dl Phosphorus (2.5-4.9) mg/dl Magnesium (1.8-2.4) mg/dl Total Bilirubin (0.2-1) mg/dl AST (15-37) U/L ALT (12-78) U/L Alkaline Phosphatase (45-117) U/L Troponin I (0-0.045) ng/ml Total Protein (6.4-8.2) gm/dl Albumin (3.4-5.0) gm/dl Globulin (2.5-4.0) gm/dl Albumin/Globulin Ratio (0.9-2) Triglycerides (0-150) mg/dl Cholesterol (0-200) mg/dl LDL Cholesterol Direct mg/dl LDL Cholesterol, Calc VLDL Cholesterol, Calc mg/dl HDL Cholesterol mg/dl Cholesterol/HDL Ratio Lipase (73-393) U/L Specimen Hemolysis Nasal Screen MRSA (PCR) (Negative) COVID-19 Eval Order SARS-CoV-2 (PCR) (Negative) 04/03/21 04/03/21 Range/Units 09:45 09:40 WBC 8.97 (4.8-10.8) K/uL RBC 5.55 (4.7-6.1) M/uL Hgb 17.0 (14.0-18.0) g/dL Hct 47.8 (42-52) % MCV 86.1 (80-100) fL MCH 30.6 (25-34) pg MCHC 35.6 (32-36) g/dL RDW Std Deviation 39.6 (36.4-46.3) fL RDW Coeff of Denilson 12.5 (11.5-14.5) % Plt Count 233 (130-400) K/uL MPV 9.0 (7.4-10.4) fL Immature Gran % (Auto) 0.2 % Neut % (Auto) 50.0 % Lymph % (Auto) 35.3 % Grand % (Auto) 10.3 % Eos % (Auto) 3.3 % Baso % (Auto) 0.9 % Neut # (Auto) 4.48 (1.4-6.5) K/uL Lymph # (Auto) 3.17 (1.2-3.4) K/uL Grand # (Auto) 0.92 H (0.11-0.59) K/uL Eos # (Auto) 0.30 (0-0.5) K/uL Baso # (Auto) 0.08 (0-0.2) K/uL Immature Gran # (Auto) 0.02 (0.00-0.02) K/uL PT (9.0-12.0) Seconds INR (0.9-1.1) APTT (21.0-31.0) Seconds PTT Ratio Activ Coag Time Kaolin (94-140) SECONDS Sodium 137 (136-145) mmol/L Potassium 4.1 (3.5-5.1) mmol/L Chloride 107 (98-107) mmol/L Carbon Dioxide 22 (21-32) mmol/L Anion Gap 8.0 (3-11) BUN 15 (7-18) mg/dl Creatinine 0.92 (0.6-1.4) mg/dl Est Cr Clr Drug Dosing 109.4 ml/min Est GFR ( Amer) 102.9 ml/min Est GFR (Non-Af Amer) 88.8 ml/min BUN/Creatinine Ratio 16.0 (10-20) Glucose 150 H (70-99) mg/dl POC Glucose (70-99) mg/dl Estimat Average Glucose Hemoglobin A1c Calcium 9.3 (8.5-10.1) mg/dl Phosphorus (2.5-4.9) mg/dl Magnesium (1.8-2.4) mg/dl Total Bilirubin 0.5 (0.2-1) mg/dl AST 22 (15-37) U/L ALT 35 (12-78) U/L Alkaline Phosphatase 72 (45-117) U/L Troponin I 0.035 (0-0.045) ng/ml Total Protein 7.9 (6.4-8.2) gm/dl Albumin 3.8 (3.4-5.0) gm/dl Globulin 4.1 H (2.5-4.0) gm/dl Albumin/Globulin Ratio 0.9 (0.9-2) Triglycerides (0-150) mg/dl Cholesterol (0-200) mg/dl LDL Cholesterol Direct mg/dl LDL Cholesterol, Calc VLDL Cholesterol, Calc mg/dl HDL Cholesterol mg/dl Cholesterol/HDL Ratio Lipase 180 (73-393) U/L Specimen Hemolysis Nasal Screen MRSA (PCR) (Negative) COVID-19 Eval Order SARS-CoV-2 (PCR) (Negative) Resident Activity Tracking Resident Involvement: Resident Care Provided Care Provided: Adult Hospital Medicine
[2021-04-04 08:37] LABS: Estimated Average Glucose 143 mg/dl; Hemoglobin A1C 6.6 % (4.5-5.6)
[2021-04-04] MEDS ORDERED: SODIUM CHLORIDE 0.9% 1000ML 1,000 ML IV SCH (10:00)
[2021-04-04] MEDS ORDERED: GLUCOSE 40% GEL 15 GM TUBE PO PRN (10:30)
[2021-04-04] MEDS ORDERED: CARBOHYDRATES FOR HYPOGLYCEMIA PO PRN (10:30)
[2021-04-04] MEDS ORDERED: GLUCOSE 10 TABS/TUBE PO PRN (10:30)
[2021-04-04] MEDS ORDERED: GLUCAGON FOR INJ 1 MG VIAL IM PRN (10:30)
[2021-04-04] MEDS ORDERED: DEXTROSE 50% 50 ML SYRINGE IV PRN (10:30)
--- NOTE | 2021-04-04 11:01 | Electrocardiogram Report ---
Test Reason : Blood Pressure : / mmHG Vent. Rate : 084 BPM Atrial Rate : 084 BPM P-R Int : 168 ms QRS Dur : 114 ms QT Int : 392 ms P-R-T Axes : 012 017 087 degrees QTc Int : 463 ms Normal sinus rhythm Low voltage QRS infero-posterior ACUTE DE / STEMI Consider right ventricular involvement in acute inferior infarct Abnormal ECG Confirmed by Nikolai Reyes ([id number]) on 04/04/2021 11:01:20 AM Referred By: REFERRED SELF Confirmed By:Luciano Reyes
--- NOTE | 2021-04-04 11:03 | Electrocardiogram Report ---
Test Reason : Blood Pressure : / mmHG Vent. Rate : 080 BPM Atrial Rate : 080 BPM P-R Int : 170 ms QRS Dur : 098 ms QT Int : 396 ms P-R-T Axes : 024 -05 125 degrees QTc Int : 456 ms Normal sinus rhythm Low voltage QRS T wave abnormality, consider lateral ischemia Abnormal ECG When compared with ECG of 03-APR-2021 09:21, (unconfirmed) ST no longer elevated in Inferior leads ST no longer depressed in Anterior leads T wave inversion more evident in Lateral leads Confirmed by Nikolai Reyes ([id number]) on 04/04/2021 11:03:08 AM Referred By: REFERRED SELF Confirmed By:Luciano Reyes
--- NOTE | 2021-04-04 11:06 | Hospitalist Progress Note ---
Date of Service April 04, 2021 Assessment & Plan (1) Acute AL, inferior wall: Plan: Patrice is a 60-year-old male with past medical history of type 2 diabetes mellitus with ulcers, neuropathy, hyper lipidemia, and tobacco use who presented to the emergency department with chest pain since 7 AM. No associated nausea, shortness of breath, diaphoresis. No prior cardiac history. Heart alert called in the emergency department, patient with 5/10 chest pain at time of cardiology evaluation and EKG showing inferior ST elevations, patient given heparin/aspirin/Brilinta and pending PCI. STEMI Chest pain beginning 7 AM 04/03/2021 EKG: Sinus rhythm. ST segment elevation in inferior/lateral leads consistent with inferior STEMI. QTc 463, CT 168, QRS 114 Heart alert called, patient given aspirin/Brilinta, heparinized, and taken for emergent PCI. Discussed case with Dr. Partida. Patient with severe coronary artery disease, culprit vessel likely circumflex which had a 99% occlusion and distal disease. Patient underwent PCI with 1 stent to OM 2 and an additional stent to OM 3. Patient also has diffuse severe RCA disease, moderate LAD disease. Anticipate return to [facility] tomorrow for reevaluation and potential stenting of RCA. Patient on Brilinta, trend troponins, repeat echo for the morning. Continue ARB, atorvastatin. Metoprolol tartrate 25 mg p.o. twice daily added. PCI: As above Hemoglobin 17 Creatinine at baseline, less than 0.92 on admission BSG 150 No transaminitis Troponin trended Last lipid profile 08/22: Trig 247/cholesterol 232/LDL 153/HDL 30. Continue atorvastatin 80 as below Lipase 180 CXR: Cardiomegaly without acute abnormality. Radiodensity in right lower lung likely representing calcified granuloma seen on prior CT. Patient has not been taking his medications prior to admission Reinforced and counseled patient on the importance of his medications and treatment of his underlying conditions, and on the risk for his STEMI. Continue atorvastatin 80 mg daily Continue losartan 25 mg daily Metoprolol tartrate 25 mg p.o. twice daily, uptitrate based on blood pressure DAPT x1 year -On 04/04 Patient is having repeat PCI to place additional 2 stents. Patient is currently asymptomatic. Vitals are stable. Trop is trending down from 200 (peak) Will continue to monitor. Continue ticagrelor Continue losartan and metoprolol (2) Type 2 diabetes with complication: Plan: Type 2 diabetes mellitus Last A1c 08/05/2020 6.1% Patient with poor understanding of the effect of his diabetes on his ulcer and heart disease. Somewhat resistant to counseling. Repeat A1c pending. (3) Benign essential hypertension: Plan: Hypertension Blood pressure previously well controlled on losartan 25 mg daily (4) Hyperlipidemia: Plan: Hyperlipidemia Continue atorvastatin 80 mg daily Noncompliant to this prior to admission, discussed the importance of statin therapy to both lower his LDL which has been greater than 130, reduce risk of future heart attack, and stabilize plaques on the vogel. (5) Tobacco use disorder: Plan: Tobacco use Current tobacco use, both cigarettes and chew Patient does not express interest in quitting Requests to use his chew during post catheterization history follow-up, again reinforced the effect of tobacco use on heart attack risk and the severity of his STEMI presentation. 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 Calluses noted between right fourth lateral and left fifth lateral toe without ulceration/infection. Doxycycline completed 09/2020 for ? superimposed cellulitis No signs of active infection at this time (7) Diabetic peripheral neuropathy associated with type 2 diabetes mellitus: Plan: See above Plan: DVT prophylaxis: SCDs, patient aspirin/heparin/Brilinta as above defer additional pharmacal prophylaxis at this time pending reevaluation Diet: DM2, n.p.o. at midnight for possible cath reevaluation tomorrow morning Disposition: ICU following PCI CODE STATUS: Full code Admission and Anticipated Discharge Date Admission Date: April 03, 2021 Subjective Patient reports feeling well. He has no new complaints after getting stents placed yesterday. Review of Systems Review of Systems: All systems reviewed & are unremarkable except as noted in HPI & below Physical Exam Physical Exam: General: A&Ox3. NAD. Cooperative. HEENT: Atraumatic, normocephalic. Pulm: CTAB Cardiac: RRR, Abdominal: Nontender, nondistended, soft. BS present. Extremities: Cap refill brisk in fingers and toes bilaterall Results & Data Results & Data ([facility]) Vital Signs (Past 12 Hours) Vital Signs Temp Pulse Pulse Resp BP BP Pulse Ox 04/04/21 08:09 77 112/81 04/04/21 07:29 37.1 C 04/04/21 07:00 68 16 104/74 95 04/04/21 06:23 67 14 103/71 96 04/04/21 05:30 69 18 106/66 95 04/04/21 04:37 37.0 C 69 16 128/83 95 04/04/21 03:20 74 20 117/81 96 04/04/21 02:00 76 18 93 04/04/21 01:00 79 17 93 04/04/21 00:00 37.1 C 84 21 152/98 H 92 04/03/21 23:00 84 19 138/89 94 PG Care Time/CCT Total # of Minutes Spent Total Time Spent with Patient: Total time spent is greater than 50% in coordination of care (as documented) at patient's floor/unit and/or counseling patient: Coding Level of Care Code 38360 Subseq Hosp Care Lvl 3 Diagnoses Acute AL, inferior wall I21.19 Type 2 diabetes with complication E11.8 Benign essential hypertension I10 Hyperlipidemia E78.5 Tobacco use disorder F17.200 Diabetic ulcer of left great toe E11.621; L97.529 Diabetic peripheral neuropathy associated with type 2 diabetes mellitus E11.42 Time Spent (min) 35
[2021-04-04] MEDS ORDERED: INSULIN ASPART 100 UNITS/ML 3 ML PEN SC SCH (12:00)
[2021-04-04] MEDS ORDERED: fentaNYL citrate 100 MCG/2 ML VIAL ONE ×2 (12:03→13:05)
[2021-04-04] MEDS ORDERED: NITROGLYCERIN/D5W 100MCG/ML 20ML SYR ONE (12:03)
[2021-04-04] MEDS ORDERED: MIDAZOLAM HCL 1 MG/ML 2ML VIAL ONE ×2 (12:03→13:05)
[2021-04-04] MEDS ORDERED: HEPARIN (PORCINE) 1000 UNIT/ML 10 ML (CATH LAB USE ONLY) ONE (12:03)
[2021-04-04] MEDS ORDERED: niCARdipine HCL INJ 2.5 MG/ML 10 ML AMP ONE (12:03)
[2021-04-04] MEDS ORDERED: DOPamine 400MG / 250ML D5W (Cath Lab Use ONLY) ONE (13:13)
[2021-04-04] MEDS ORDERED: NOREPINEPHRINE BITARTRATE 1 MG/ML 4 ML VIAL (CATH LAB USE ONLY) ONE (13:13)
--- NOTE | 2021-04-04 13:48 | Post Anesthesia Assessment ---
Date of Service April 04, 2021 Post Sedation Assessment Vital Signs Temp Pulse Pulse Resp BP BP Pulse Ox 04/04/21 12:23 67 20 112/80 95 04/04/21 08:09 77 112/81 04/04/21 07:29 98.8 F 04/04/21 07:00 68 16 104/74 95 04/04/21 06:23 67 14 103/71 96 04/04/21 05:30 69 18 106/66 95 04/04/21 04:37 98.6 F 69 16 128/83 95 04/04/21 03:20 74 20 117/81 96 04/04/21 02:00 76 18 93 04/04/21 01:00 79 17 93 04/04/21 00:00 98.8 F 84 21 152/98 H 92 04/03/21 23:00 84 19 138/89 94 04/03/21 22:00 91 H 24 143/92 H 93 04/03/21 20:00 98.6 F 89 17 95 04/03/21 19:00 92 H 19 95 04/03/21 17:30 95 H 16 95 04/03/21 17:00 95 H 22 126/81 91 04/03/21 16:30 88 16 129/90 96 04/03/21 16:00 89 16 120/77 94 04/03/21 15:30 84 13 96 04/03/21 15:15 83 16 96 04/03/21 15:00 86 16 97 04/03/21 14:45 85 20 96 04/03/21 14:30 85 25 H 97 04/03/21 14:15 84 18 95 04/03/21 14:00 87 19 96 Recovery Score Activity: Moves 4 extremities Respiration: Deep Breath/Cough Circulation: +/-20% PreAnes Value Consciousness: Fully Awake Oxygen Saturation: > 92% On Room Air Post Anesthesia Score: 10 Discharge Sedation Level of Care: Fast Track Phase II Post Sedation Plan On clinical assessment, the patient appears to have tolerated the sedation without complications. Patient is recovering as anticipated. Patient will continue to be monitored by nursing and may be discharged when sed ation discharge criteria are met per below protocol. Upon Completions of procedure up to 15 minutes continue every 5 minute vital signs and the P.A.R. score; then discharge to a Phase I or Fast Track to Phase II per the following guidelines: * Discharge Patient to appropriate Phase II area if PAR is 8 or greater or return to pre- procedure baseline. The post - procedure orders will be as directed. * If PAR score is less than 8 or not return to pre-procedure baseline then patient will follow Phase I monitoring till PAR is reached for Phase II. The Phase I may be done in procedure room or may call to secure a Phase I area. * If naloxone or flumazenil are used for reversal, hold in Phase I for continued monitoring from when last reversal dose was given for a minimum of 60 minutes or longer pending the nurse and/or physician discretion of patient condition before discharge to Phase II. Please call the Sedation Physician to re-evaluate and complete post-note for discharge to Phase II area. Do NOT discharge from procedure sedation or Phase 1 until post- sedation evaluation note is complete by procedure /sedation MD Sedation Discharge Instructions to be given to the patient at discharge to home.
--- NOTE | 2021-04-04 13:55 | Cardiac Catheterization ---
[facility] Data: Education And Development Manager Cardiac Status Clinical evaluation leading to the procedure CAD Presenation: STEMI Anginal Classification: CCS IV Heart Failure: No Cardiogenic Shock within 24 Hours: No Cardiac Arrest within 24 Hours: No Imaging Studies Past 6 Months: Yes Stress Studies Past 6 Months: No Diagnostic Physicians Name: Nikolai Partida MD Status: Elective Closure Device Percutaneous Entry Location: Radial Closure Device: Radial Band Recommendations: PCI without planned CABG PCI Indication: Staged PCI Intraprocedure Events Significant Disection: No Perforation: No Cardiac Cath Procedure Full Procedure Date April 04, 2021 Pre-Procedure Diagnosis Pre-Procedure Diagnosis: STEMI AUC Score AUC Score: 7 Post-Procedure Diagnosis Post-Procedure Diagnosis: Unsuccessful PCI and Elevated Intracardiac Pressures Procedure(s) Performed Procedure(s) Performed: Coronary Angiography, Left Heart Cath and PTCA Director Automotive Nikolai Partida MD Landscape Crew Leader(s) Faheem Estimated Blood Loss Estimated Blood Loss: 15 Medication(s) Medication(s): Dopamine, Fentanyl, Heparin, Lidocaine 1%, Nicardipine and Versed Summary of Findings Indication: Staged PCI of RCA. Post PCI to distal circumflex subtotal occlusion Access: 6 Fr right radial artery Catheters: JR4 guide, telescope support catheter, pigtail Findings: For full details of patient's coronary angiography please see cath report dictated on 04/03/2021. Briefly patient was noted to have severe multivessel disease with a subtotal acute occlusion of distal circumflex. Also noted to have severe mid, distal RCA disease. Underwent PCI to circumflex with 2 TAY yesterday. Brought back today for staged PCI of RCA. -- PCI -- Antithrombotic therapy: Heparin, ticagrelor Procedure: RCA cannulated with JR4 guide Post administration of sedation, radial artery nicardipine patient hypotensive to 50s/60s. Received IV fluid bolus and started on dopamine, also given 0.5 of atropine with improvement in blood pressure. Production Cell Leader 50 wire passed across lesion into distal R-PDA Telescope catheter placed into proximal RCA for support Attempted to pass 2.0 and 1.5 balloons across mid RCA stenosis unsuccessfully. No change to stenosis with gentle dilation of 2.0 balloon. Wire removed, no change to severe mid RCA, distal RCA disease. Patient remained asymptomatic and procedure aborted. Arterial Closure: TR band Summary: 1. Unsuccessful PCI of mid/distal RCA due to inability to pass balloons across mid RCA stenosis. Recommendations: Plan for medical management of chronic RCA disease. In the future, if refractory symptoms and demonstrable ischemia, complex PCI to RCA with atherectomy could be considered. Hemodynamics Rest Ao:: 82/53/65 Final Ao: 88//66 LV: 94/19 Recommendations Recommendations: PCI without planned CABG Specimens Specimens: None Radiation Exposure (mGy) 1660 Contrast (mls) 35 Fluids (cc crystalloids) Fluids (cc crystalloids): 600 Drains Drains: None Anesthesia Moderate 3163-6298 Procedural Complication(s) None Disposition ICU I attest to the content of the Intraoperative Record and any orders documented therein. Any exceptions are noted below. [facility] Card Cath Procedure Codes Cardiac Catheterization Procedure 1: Cardiovascular Cath Procedures: 53025 Left Heart Cath (+/-LV) Moderate Sedation Procedure 1: Sedation/Anesthesia: 01695 Mod Sedation by the same physician;Init15 Min Child Age 5 & Up PG Care Time/CCT Total # of Minutes Spent Total Time Spent with Patient: Total time spent is greater than 50% in coordination of care (as documented) at patient's floor/unit and/or counseling patient:
--- NOTE | 2021-04-04 16:02 | Billing Data ---
Date of Service April 04, 2021 Coding Level of Care Code 44738 Subseq Hosp Care Lvl 3
--- NOTE | 2021-04-04 17:34 | Electrocardiogram Report ---
Test Reason : Blood Pressure : / mmHG Vent. Rate : 071 BPM Atrial Rate : 071 BPM P-R Int : 172 ms QRS Dur : 106 ms QT Int : 488 ms P-R-T Axes : 020 -11 178 degrees QTc Int : 530 ms Normal sinus rhythm Low voltage QRS Inferior infarct , age undetermined Prolonged QT Abnormal ECG Confirmed by Nikolai Reyes ([id number]) on 04/04/2021 5:33:44 PM Referred By: REFERRED SELF Confirmed By:Luciano Reyes
[2021-04-04] MEDS: INSULIN ASPART 100 UNITS/ML 3 ML PEN SC SCH ×2 (18:06→20:44)
[2021-04-04] MEDS: NICOTINE 21 MG/24 HR TDSY TD SCH (18:14)
[2021-04-04] MEDS ORDERED: METOPROLOL TARTRATE 25 MG TAB PO SCH (21:00)
--- NOTE | 2021-04-04 23:00 | Cardiology Progress Note ---
Date of Service April 04, 2021 Assessment & Plan (1) Acute UT, inferior wall: Plan: - Acute 99% distal circumflex post 2 TAY - Severe mid/distal RCA disease - 60% distal LAD 2. ICM - EF 45% with inferior/inferolateral wall motion abnormality. 3. Type 2 DM 4. Dyslipidemia 5. Tobacco abuse Attempt made to open up severe RCA disease but unable to pass balloon past mid RCA stenosis and procedure aborted. Post procedure RCA flow unchanged. Patient remains chest pain free and asymptomatic. -- Plan to medically manage RCA. If refractory symptoms with ischemia in the future could consider PCI with atherectomy or bypass. -- Continue DAPT with ASA/Ticagrelor -- Continue statin. Consider metformin as outpatient -- Continue losartan. Metoprolol reduced with transient hypotension during cath. Home on toprol XL -- Smoking cessation. Tenatively plan on discharge tomorrow morning with cardiology f/up in 2 weeks. Admission and Anticipated Discharge Date Admission Date: April 03, 2021 Subjective No chest pain. No other new complaints. Tele reviewed -- no events. Review of Systems Review of Systems: All systems reviewed & are unremarkable except as noted in HPI & below Physical Exam Physical Exam: General: Comfortable HEENT: Sclerae anicteric, Mask in place Lungs: Clear to auscultation bilaterally, no crackles or wheezes Cardiac: Regular rate and rhythm, no murmurs. Vascular: 2+ radial artery pulse, no hematoma/ecchymosis Abdomen: Soft, nontender Extremities: Well perfused, no peripheral edema Neuro: Nonfocal Psych: Alert orient x3, normal affect and mood Results & Data ([facility]) Vital Signs (Past 12 Hours) Vital Signs Temp Pulse Pulse Resp BP BP Pulse Ox 04/04/21 22:00 73 20 111/68 94 04/04/21 21:00 75 19 104/70 95 04/04/21 20:01 77 19 112/71 96 04/04/21 19:01 98.6 F 78 16 109/76 95 04/04/21 18:00 11 L 97/56 L 95 04/04/21 17:50 23 95 04/04/21 17:40 76 13 94 04/04/21 17:32 95/65 L 04/04/21 17:30 69 23 76/52 L 94 04/04/21 17:20 72 14 94 04/04/21 17:10 71 20 92 04/04/21 17:00 72 18 90 04/04/21 16:50 74 20 96 04/04/21 16:40 96 04/04/21 16:30 92 04/04/21 16:20 95 04/04/21 16:10 95 04/04/21 16:00 125/81 95 04/04/21 15:45 94 04/04/21 15:30 76 23 96 04/04/21 15:20 76 19 97 04/04/21 15:10 78 15 119/77 96 04/04/21 15:01 76 14 85/70 L 96 04/04/21 15:00 75 17 96 04/04/21 14:46 98.6 F 96/62 L 04/04/21 14:15 70 20 98/58 L 98 04/04/21 14:05 73 20 94/56 L 94 04/04/21 14:00 68 20 87/59 L 94 04/04/21 13:47 65 16 154/73 H 98 04/04/21 12:23 67 20 112/80 95 04/04/21 12:00 64 17 112/80 95 04/04/21 11:00 66 15 105/76 94 PG Care Time/CCT Total # of Minutes Spent Total Time Spent with Patient: Total time spent is greater than 50% in coordination of care (as documented) at patient's floor/unit and/or counseling patient: Coding Level of Care Code 81277 Subseq Hosp Care Lvl 3 Diagnoses Acute UT, inferior wall I21.19
--- NOTE | 2021-04-04 23:12 | XCELERA ---
[id number] \\[id number]}___[id number]
[2021-04-05 05:09] LABS: Basophils # (auto) 0.03 K/uL (0-0.2); Basophils % (auto) 0.3 %; Eosinophils # (auto) 0.28 K/uL (0-0.5); Eosinophils % (auto) 2.9 %; Hematocrit (blood only) 41.1 % (42-52); Hemoglobin 14.4 g/dL (14.0-18.0); Immature Granulocytes # (auto) 0.02 K/uL (0.00-0.02); Immature Granulocytes % (auto) 0.2 %; Lymphocytes # (auto) 3.39 K/uL (1.2-3.4); Lymphocytes % (auto) 34.7 %; Mean Corpuscular Hemoglobin 30.1 pg (25-34); Mean Corpuscular Volume 85.8 fL (80-100); Mean Platelet Volume 8.9 fL (7.4-10.4); Monocytes # (auto) 0.96 K/uL (0.11-0.59); Monocytes % (auto) 9.8 %; Neutrophils % (auto) 52.1 %; Platelet Count 209 K/uL (130-400); RDW Coefficient of Variation 12.5 % (11.5-14.5); RDW Standard Deviation 39.3 fL (36.4-46.3); Red Blood Count 4.79 M/uL (4.7-6.1); White Blood Count 9.78 K/uL (4.8-10.8)
[2021-04-05 07:12] LABS: BUN Creatinine Ratio 20.4 (10-20); Calcium 9.1 mg/dl (8.5-10.1); Creatinine Clr Calc Pharmacy 115.9 ml/min; Est GFR (African American) 107.2 ml/min; Est GFR (Non-African American) 92.5 ml/min; Potassium 3.8 mmol/L (3.5-5.1)
--- NOTE | 2021-04-05 07:34 | Discharge Summary ---
Date of Service April 05, 2021 Admission HPI Per Admitting Provider Patrice is a 60-year-old male with past medical history of type 2 diabetes mellitus with ulcers, neuropathy, hyper lipidemia, and tobacco use who presented to the emergency department with chest pain since 7 AM. No associated nausea, shortness of breath, diaphoresis. No prior cardiac history. Heart alert called in the emergency department, patient with 5/10 chest pain at time of cardiology evaluation and EKG showing inferior ST elevations, patient given heparin/aspirin/Brilinta and pending PCI. At time of bedside assessment patient reports his pain is completely resolved and is a 0/10. He reports before presenting it was a 5/10 and achy in quality in his left chest and spreading down his left shoulder and arm. He reports he did have an episode of sweating/diaphoresis with the symptoms this morning. Th is has resolved. Denies shortness of breath, difficulty breathing, lightheadedness, dizziness, syncope, presyncope. Denies nausea/vomiting/diarrhea/constipation. Is hungry and would like to eat. Patrice seen in the ICU following PCI. He reports that he does not believe he is a diabetic, and has not needed medicine for this. Reports he has had elevated A1c and cholesterol. Reports that he was told he should take atorvastatin as an outpatient, reports this was prescribed but he did not fill or take this due to cost and prior history of an arm ache while on a statin. Reports he smokes a pack of cigarettes every couple of days and chews several times daily. Requests chew while inpatient, offered an INSIDE SALES TRAINER to which patient declines. Discussed pathophysiology of patient's medical conditions and presentation with him. He declines tobacco cessation resources and is not interested in reducing or becoming tobacco free. Denies chest pressure, chest pain, shortness of breath, dyspnea, leg swelling prior to his episode today.. Medical History: Reviewed Medications: Reviewed. Of note patient prescribed atorvastatin, has not taken this. Surgical History: Reviewed Allergies: Reviewed Social History: Endorses tobacco use as noted above, social alcohol use, no recreational drug use Code Status: Full code Principal Diagnosis STEMI Discharge Exam General: A&Ox3. NAD. Cooperative. HEENT: Atraumatic, normocephalic. Pulm: CTAB Cardiac: RRR, Abdominal: Nontender, nondistended, soft. BS present. Extremities: Cap refill brisk in fingers and toes bilaterall Discharge Data Allergies Allergy/AdvReac Type Severity Reaction Status Date / Time shellfish derived Allergy Intermediate THOAT Verified 09/15/20 10:05 SWELLS Consultations 04/03/21 11:54 Consult Cardiac Rehabilitation Routine Consult Shoe Polisher Routine Procedures Performed Operation Date: 04/03/21 09:45 Actual Procedures p Aspiration/PCI w/TAY for Stemi - Rodolfo Partida MD s Cineradiography w/Routine Exam - Rodolfo Partida MD s Cath, Coronaries ONLY (no LV) - Rodolfo Partida MD Operation Date: 04/04/21 11:00 Actual Procedures s Cineradiography w/Routine Exam - Rodolfo Partida MD p POBA SGL Vessel - Rodolfo Partida MD s Cath, Coronaries ONLY (no LV) - Rodolfo Partida MD Ordered Studies 04/03/21 09:48 CL Cath Imgs for PACS use only Stat 04/04/21 09:32 CL Cath Imgs for PACS use only Routine Hospital Course (1) Acute MO, inferior wall: Patrice is a 60-year-old male with past medical history of type 2 diabetes mellitus with ulcers, neuropathy, hyper lipidemia, and tobacco use who presented to the emergency department with chest pain since 7 AM. No associated nausea, shortness of breath, diaphoresis. No prior cardiac history. Heart alert called in the emergency department, patient with 5/10 chest pain at time of cardiology evaluation and EKG showing inferior ST elevations, patient given heparin/aspirin/Brilinta and pending PCI. STEMI Chest pain beginning 7 AM 04/03/2021 EKG: Sinus rhythm. ST segment elevation in inferior/lateral leads consistent with inferior STEMI. QTc 463, CT 168, QRS 114 Heart alert called, patient given aspirin/Brilinta, heparinized, and taken for emergent PCI. Discussed case with Dr. Partida. Patient with severe coronary artery disease, culprit vessel likely circumflex which had a 99% occlusion and distal disease. Patient underwent PCI with 1 stent to OM 2 and an additional stent to OM 3. Patient also has diffuse severe RCA disease, moderate LAD disease. Anticipate return to [facility] tomorrow for reevaluation and potential stenting of RCA. Patient on Brilinta, trend troponins, repeat echo for the morning. Continue ARB, atorvastatin. Metoprolol tartrate 25 mg p.o. twice daily added. PCI: As above Hemoglobin 17 Creatinine at baseline, less than 0.92 on admission BSG 150 No transaminitis Troponin trended Last lipid profile 08/22: Trig 247/cholesterol 232/LDL 153/HDL 30. Continue atorvastatin 80 as below Lipase 180 CXR: Cardiomegaly without acute abnormality. Radiodensity in right lower lung likely representing calcified granuloma seen on prior CT. Patient has not been taking his medications prior to admission Reinforced and counseled patient on the importance of his medications and treatment of his underlying conditions, and on the risk for his STEMI. Continue atorvastatin 80 mg daily Continue losartan 25 mg daily Metoprolol tartrate 25 mg p.o. twice daily, uptitrate based on blood pressure DAPT x1 year 04/05/21 Appreciate input from Cardio: - Acute 99% distal circumflex post 2 TAY - Severe mid/distal RCA disease - 60% distal LAD 2. ICM - EF 45% with inferior/inferolateral wall motion abnormality. 3. Type 2 DM 4. Dyslipidemia 5. Tobacco abuse Attempt made to open up severe RCA disease but unable to pass balloon past mid RCA stenosis and procedure aborted. Post procedure RCA flow unchanged. Patient remains chest pain free and asymptomatic. -- Plan to medically manage RCA. If refractory symptoms with ischemia in the future could consider PCI with atherectomy or bypass. -- Continue DAPT with ASA/Ticagrelor -- Continue statin. --Will add metformin as an outpatient (750 mg of extended release version) -- Continue losartan. -- Home on toprol XL 25 mg once daily in the evening. -- Smoking cessation: script for nicotine patch was sent to the pharmacy. cardiology f/up in 2 weeks recommend f/u with PCP in 1 week (2) Type 2 diabetes with complication: Type 2 diabetes mellitus Last A1c 08/05/2020 6.1% Patient with poor understanding of the effect of his diabetes on his ulcer and heart disease. Patient will benefit from metformin. (3) Benign essential hypertension: Hypertension Blood pressure previously well controlled on losartan 25 mg daily (4) Hyperlipidemia: Hyperlipidemia Continue atorvastatin 80 mg daily Noncompliant to this prior to admission, discussed the importance of statin therapy to both lower his LDL which has been greater than 130, reduce risk of future heart attack, and stabilize plaques on the vogel. (5) Tobacco use disorder: Tobacco use Current tobacco use, both cigarettes and chew Patient does not express interest in quitting Requests to use his chew during post catheterization history follow-up, again reinforced the effect of tobacco use on heart attack risk and the severity of his STEMI presentation. Patient declines an INSIDE SALES TRAINER at this time (6) Diabetic ulcer of left great toe: Diabetic foot ulcer Diabetic ulcer of left hallux, right hallux followed by wound care Wound cultures obtained 09/01/2020 Patient recommended to use toe spacers. Calluses noted between right fourth lateral and left fifth lateral toe without ulceration/infection. Doxycycline completed 09/2020 for ? superimposed cellulitis No signs of active infection at this time (7) Diabetic peripheral neuropathy associated with type 2 diabetes mellitus: See above DVT prophylaxis: SCDs, Total Time Total Time Spent Total Time Spent (In Minutes): 32 Discharge Plan Discharge Items Patient Disposition: Home - Self-Care Reason For Visit: ACS Discharge Diagnosis: ACS Activity: Resume your previous activity Non-emergency contact: Primary Care Provider Call non-emergency contact if: you have any medication questions Follow-up/Referrals: Oscar Pritchard MD [Primary Care Provider] - Rodolfo Reyes MD [Physician] - 04/27/21 9:00 am Diet: Carb Consistent or DM2 Addtl Attending Provider Instructions: You were hospitalized for a STEMI heart attack. -- You will be on ASA/Ticagrelor, statin, losartan, toprol XL -- Smoking cessation. Cardiology followup in 2 weeks. Pending Studies at Discharge: No Stand-Alone Forms: My [employer], Smoking Cessation Medications and DC Order Prescriptions: New nicotine [Nicoderm CQ] 21 mg/24 hr Patch 24 Hour 21 mg transdermal QAM Qty: 30 RF: 0 Brilinta 90 mg Tablet 90 mg PO BID Qty: 60 RF: 0 metoprolol succinate 25 mg tablet extended release 24 hr 25 mg PO DAILY Qty: 30 RF: 0 aspirin 81 mg Tablet,Delayed Release (Dr/Ec) 81 mg PO QAM Qty: 30 RF: 0 nitroglycerin [Nitrostat] 0.4 mg Tablet, Sublingual 0.4 mg sublingual PRN PRN (Reason: chest pain) Qty: 1 RF: 0 metformin 750 mg tablet extended release 24 hr 750 mg PO DAILY Qty: 30 RF: 0 Continued (DME) OneTouch Ultra Blue Test Strip Strip See Rx Instructions .ROUTE .MEDSUPPLY Qty: 50 RF: 11 losartan 25 mg tablet 25 mg PO DAILY Qty: 30 RF: 5 atorvastatin 80 mg tablet 80 mg PO QAM Qty: 90 RF: 3 Discharge Orders: Discharge Order (Routine); Ordered 04/05/21 Ordered By: Ramesh Mendiola/Other Patient Handouts: Coronary Stents, Managing Type 2 Diabetes, Cardiac Catheterization Dc, Heart Attack: Leaving the Hospital, [facility] for Diabetes Admission Data Admit Date/Time: 04/03/21 11:54 Attending Provider: Ramesh Guerrero Admit Provider: Rodolfo Partida Primary Care Provider: Oscar Pritchard Other Providers: Dwain Esquivel Other Interventions: Discharge Summary Assessment (RN) Last Done: 04/05/21 08:17 Coding Level of Care Code D/C DAY MANAGEMENT >30 MINS Diagnoses Acute MO, inferior wall I21.19 Type 2 diabetes with complication E11.8 Benign essential hypertension I10 Hyperlipidemia E78.5 Tobacco use disorder F17.200 Diabetic ulcer of left great toe E11.621; L97.529 Diabetic peripheral neuropathy associated with type 2 diabetes mellitus E11.42
[2021-04-05] MEDS: NICOTINE 21 MG/24 HR TDSY TD SCH (07:49)
[2021-04-05] MEDS: ATORVASTATIN 40 MG TAB PO SCH (07:52)
[2021-04-05] MEDS: ASPIRIN 81 MG ECTAB PO SCH (07:52)
[2021-04-05] MEDS: LOSARTAN POTASSIUM 25 MG TAB PO SCH (07:53)
[2021-04-05] MEDS: TICAGRELOR 90 MG TAB PO SCH (07:53)
[2021-04-05] MEDS: INSULIN ASPART 100 UNITS/ML 3 ML PEN SC SCH (07:54)
--- NOTE | 2021-04-05 08:41 | Critical Care Progress Note ---
Date of Service April 05, 2021 Assessment & Plan (1) Acute [place], inferior wall: Plan: Reason critically ill: 60 yo male admitted to ICU with STEMI after heart alert called and patient taken to laboratory supervisor; received 2 TAY on 04/03/2021. PCI of mid/distal RCA on 04/04/2021 unsuccessful. Reamined in ICU for close HD monitoring; patient has been stable. NEURO: CAM-ICU negative. A/O x3. No acute concerns. CARDIAC/VASCULAR: STEMI: s/p 2 TAY to distal circumflex on 04/03/2021. PCI of the mid/distal RCA 04/04/2021 unsuccessful; continue medical management per cardiology as follows. Continue dual antiplatelet therapy w/ ASA and Bilinta, beta-beth, ARB, and high-dose statin. F/u with cardiology as outpatient in 2 weeks. Tobacco use disorder: strongly encourage smoking cessation. Patient reports s moking ~ 1ppd. RESPIRATORY: Atelectasis. Encourage IS use. Otherwise no acute concerns. Maintaining O2 saturation of 95% on room air. Recommend outpatient PFTs. GI/NUTRITION: No acute concerns. Recommend starting patient on protonix with DAPT. RENAL/LYTES: ICU electrolyte replacement protocol. GENITOURINARY: No acute concerns. ENDO: DM II -- ICU glycemic protocol. Consider metformin as outpatient. HEME: No acute concerns. ID: No acute concerns. Code status: Full Code Patient stable for downgrade/discharge from ICU standpoint. (2) Benign essential hypertension: (3) Diabetic peripheral neuropathy associated with type 2 diabetes mellitus: (4) Tobacco use disorder: (5) Hyperlipidemia: Admission and Anticipated Discharge Date Admission Date: April 03, 2021 Supervising Physician Co-Signing Physician Notes Dr. Machado was the resident-physician during care of patient. I separately evaluated patient for nuno portions of the history and the exam. I was present during the critical portion of medical decision making, and I discussed the case with the resident. I generally agree with the findings and plan except for any additions/exceptions noted. Patient seen and examined at bedside. No acute distress, no adverse events overnight Patient denies any chest pain, no dizziness, no headache, no nausea, no vomiting. He did have his breakfast today Patient wanted to go home. She had 2 stents placed in the mid/distal RCA on 04/03/2021 Repeat cath 04/04/2021 they were not able to put new stents. He did have an episode of hypotension in the [employer] but since coming to the ICU he has not needed any vasopressor support Constitutional: No acute distress HEENT: EOMI, PERRLA Respiratory system: Good air entry bilaterally, no wheeze, no rhonchi, minimal crackles bilateral lower lobes CVS: S1-S2 positive, no murmurs or gallops Abdomen: Soft, nontender, nondistended, positive bowel sounds x4 Extremities: +2 pulses bilaterally radialis/ dorsalis pedis, no cyanosis, no edema Neuro: Awake alert oriented x3 Psych: Normal mood and affect G/U: No Quinonez. Plan: Importance of compliance with medications and quitting smoking explained to the patient Patient wanted to go home AMA but was persuaded to stay to be seen by the hospitalist and for possible discharge Patient is to follow-up with cardiology Please note the above document was generated using voice recognition software. It may contain grammatical, syntax or spelling errors.Any formal questions or concerns about the content, text or information contained within the body of this dictation should be directly addressed to the provider for clarification. Subjective Patient seen and evaluated at bedside this morning. Awake and alert. No complaints. States that he would like to be discharged this morning. Patient denies CP, SOB, abd pain, nausea, vomiting, or any other symptoms. Review of Systems Review of Systems: All systems reviewed & are unremarkable except as noted in HPI & below Physical Exam Physical Exam: GENERAL: No acute distress. Well developed and well nourished. Vital signs reviewed as above. EYES: EOMI. Anicteric sclerae. HENT: Moist mucous membranes. RESPIRATORY: Good air movement bilaterally. Bilateral lower lobe crackles, L>R. CARDIOVASCULAR: Regular rate and rhythm. No murmurs. ABDOMEN: Soft, non-tender and non-distended. Normal bowel sounds. EXTREMITIES: No edema. Non-tender. SKIN: Warm, dry. No rashes or lesions. NEUROLOGIC: A/O x3. No focal neurological deficits. PSYCHIATRIC: Cooperative. Appropriate mood and affect. Results & Data Results & Data ([facility]) Vital Signs (Past 12 Hours) Vital Signs Temp Pulse Pulse Resp BP BP Pulse Ox 04/05/21 08:17 36.7 C 70 18 129/58 L 98 04/05/21 06:00 75 17 97/50 L 92 04/05/21 05:00 69 20 112/73 92 04/05/21 04:00 37.1 C 71 16 128/90 95 04/05/21 03:00 65 20 94/61 L 93 04/05/21 02:28 73 18 107/73 94 04/05/21 01:00 66 16 126/62 94 04/05/21 00:00 37.1 C 72 21 97/59 L 95 04/04/21 23:00 73 19 86/67 L 94 04/04/21 22:00 73 20 111/68 94 04/04/21 21:00 75 19 104/70 95 Laboratory Results 04/05/21 04/05/21 04/05/21 Range/Units 07:18 04:57 04:57 WBC (4.8-10.8) K/uL RBC (4.7-6.1) M/uL Hgb (14.0-18.0) g/dL Hct (42-52) % MCV (80-100) fL MCH (25-34) pg MCHC (32-36) g/dL RDW Std Deviation (36.4-46.3) fL RDW Coeff of Denilson (11.5-14.5) % Plt Count (130-400) K/uL MPV (7.4-10.4) fL Immature Gran % (Auto) % Neut % (Auto) % Lymph % (Auto) % [place] % (Auto) % Eos % (Auto) % Baso % (Auto) % Neut # (Auto) (1.4-6.5) K/uL Lymph # (Auto) (1.2-3.4) K/uL [place] # (Auto) (0.11-0.59) K/uL Eos # (Auto) (0-0.5) K/uL Baso # (Auto) (0-0.2) K/uL Immature Gran # (Auto) (0.00-0.02) K/uL Activ Coag Time Kaolin (94-140) SECONDS Sodium 136 (136-145) mmol/L Potassium 3.8 D (3.5-5.1) mmol/L Chloride 107 (98-107) mmol/L Carbon Dioxide 21 (21-32) mmol/L Anion Gap 8.0 (3-11) BUN 18 (7-18) mg/dl Creatinine 0.87 (0.6-1.4) mg/dl Est Cr Clr Drug Dosing 115.9 ml/min Est GFR ( Amer) 107.2 ml/min Est GFR (Non-Af Amer) 92.5 ml/min BUN/Creatinine Ratio 20.4 H (10-20) Glucose 115 H (70-99) mg/dl POC Glucose 105 H (70-99) mg/dl Calcium 9.1 (8.5-10.1) mg/dl Phosphorus Pending Magnesium Pending 04/05/21 04/04/21 04/04/21 Range/Units 04:57 20:40 16:36 WBC 9.78 (4.8-10.8) K/uL RBC 4.79 (4.7-6.1) M/uL Hgb 14.4 (14.0-18.0) g/dL Hct 41.1 L (42-52) % MCV 85.8 (80-100) fL MCH 30.1 (25-34) pg MCHC 35.0 (32-36) g/dL RDW Std Deviation 39.3 (36.4-46.3) fL RDW Coeff of Denilson 12.5 (11.5-14.5) % Plt Count 209 (130-400) K/uL MPV 8.9 (7.4-10.4) fL Immature Gran % (Auto) 0.2 % Neut % (Auto) 52.1 % Lymph % (Auto) 34.7 % [place] % (Auto) 9.8 % Eos % (Auto) 2.9 % Baso % (Auto) 0.3 % Neut # (Auto) 5.10 (1.4-6.5) K/uL Lymph # (Auto) 3.39 (1.2-3.4) K/uL [place] # (Auto) 0.96 H (0.11-0.59) K/uL Eos # (Auto) 0.28 (0-0.5) K/uL Baso # (Auto) 0.03 (0-0.2) K/uL Immature Gran # (Auto) 0.02 (0.00-0.02) K/uL Activ Coag Time Kaolin (94-140) SECONDS Sodium (136-145) mmol/L Potassium (3.5-5.1) mmol/L Chloride (98-107) mmol/L Carbon Dioxide (21-32) mmol/L Anion Gap (3-11) BUN (7-18) mg/dl Creatinine (0.6-1.4) mg/dl Est Cr Clr Drug Dosing ml/min Est GFR ( Amer) ml/min Est GFR (Non-Af Amer) ml/min BUN/Creatinine Ratio (10-20) Glucose (70-99) mg/dl POC Glucose 107 H 138 H (70-99) mg/dl Calcium (8.5-10.1) mg/dl Phosphorus Magnesium 04/04/21 04/04/21 04/04/21 Range/Units 15:02 13:32 11:50 WBC (4.8-10.8) K/uL RBC (4.7-6.1) M/uL Hgb (14.0-18.0) g/dL Hct (42-52) % MCV (80-100) fL MCH (25-34) pg MCHC (32-36) g/dL RDW Std Deviation (36.4-46.3) fL RDW Coeff of Denilson (11.5-14.5) % Plt Count (130-400) K/uL MPV (7.4-10.4) fL Immature Gran % (Auto) % Neut % (Auto) % Lymph % (Auto) % [place] % (Auto) % Eos % (Auto) % Baso % (Auto) % Neut # (Auto) (1.4-6.5) K/uL Lymph # (Auto) (1.2-3.4) K/uL [place] # (Auto) (0.11-0.59) K/uL Eos # (Auto) (0-0.5) K/uL Baso # (Auto) (0-0.2) K/uL Immature Gran # (Auto) (0.00-0.02) K/uL Activ Coag Time Kaolin 274 H (94-140) SECONDS Sodium (136-145) mmol/L Potassium (3.5-5.1) mmol/L Chloride (98-107) mmol/L Carbon Dioxide (21-32) mmol/L Anion Gap (3-11) BUN (7-18) mg/dl Creatinine (0.6-1.4) mg/dl Est Cr Clr Drug Dosing ml/min Est GFR ( Amer) ml/min Est GFR (Non-Af Amer) ml/min BUN/Creatinine Ratio (10-20) Glucose (70-99) mg/dl POC Glucose 123 H 126 H (70-99) mg/dl Calcium (8.5-10.1) mg/dl Phosphorus Magnesium Resident Activity Tracking Resident Involvement: Resident Care Provided Care Provided: Adult [facility]
[2021-04-05 08:48] LABS: Magnesium 2.4 mg/dl (1.8-2.4)
[2021-04-05] MEDS ORDERED: METOPROLOL SUCC 25MG EXT REL TAB PO SCH (09:00)
--- NOTE | 2021-04-05 09:17 | Cardiology Progress Note ---
Date of Service April 05, 2021 Assessment & Plan (1) Acute [place], inferior wall: Plan: - Acute 99% distal circumflex post 2 TAY - Severe mid/distal RCA disease - 60% distal LAD 2. ICM - EF 45% with inferior/inferolateral wall motion abnormality. 3. Type 2 DM 4. Dyslipidemia 5. Tobacco abuse Patient OK for discharge today from cardiac standpoint. Home on: -- DAPT with ASA/Ticagrelor -- Atorvastatin 80mg daily -- Continue losartan 25mg daily. Home on toprol XL 25mg daily -- Smoking cessation. -- F/up with Dr. Pritchard for further DM2 management Follow-up with me ini 1-2 weeks. Briefly discussed cardiac rehab. Admission and Anticipated Discharge Date Admission Date: April 03, 2021 Subjective Feeling well. Ready for discharge. No chest pain overnight. Review of Systems Review of Systems: All systems reviewed & are unremarkable except as noted in HPI & below Physical Exam Physical Exam: General: Comfortable HEENT: Sclerae anicteric, Mask in place Lungs: Clear to auscultation bilaterally, no crackles or wheezes Cardiac: Regular rate and rhythm, no murmurs. Vascular: 2+ radial artery pulse, no hematoma/ecchymosis Abdomen: Soft, nontender Extremities: Well perfused, no peripheral edema Neuro: Nonfocal Psych: Alert orient x3, normal affect and mood Results & Data ([facility]) Vital Signs (Past 12 Hours) Vital Signs Temp Pulse Pulse Resp BP BP Pulse Ox 04/05/21 08:17 98.1 F 70 18 129/58 L 98 04/05/21 06:00 75 17 97/50 L 92 04/05/21 05:00 69 20 112/73 92 04/05/21 04:00 98.8 F 71 16 128/90 95 04/05/21 03:00 65 20 94/61 L 93 04/05/21 02:28 73 18 107/73 94 04/05/21 01:00 66 16 126/62 94 04/05/21 00:00 98.8 F 72 21 97/59 L 95 04/04/21 23:00 73 19 86/67 L 94 04/04/21 22:00 73 20 111/68 94 PG Care Time/CCT Total # of Minutes Spent Total Time Spent with Patient: Total time spent is greater than 50% in coordination of care (as documented) at patient's floor/unit and/or counseling patient: Coding Level of Care Code 52546 Subseq Hosp Care Lvl 3 Diagnoses Acute [place], inferior wall I21.19
--- NOTE | 2021-04-05 09:19 | Billing Data ---
Date of Service April 05, 2021 Coding Level of Care Code 39606 Subseq Hosp Care Lvl 2
== END 2021-04-05 09:05 | disposition home or self-care (01) | DRG 247 ==
LOC: ED 09:17 → CC 10:00 → SUATTDRO 11:54 → 1E 11:54
PROC: CLB.CCO (2021-04-03 09:45)

== ENCOUNTER 2022-01-02 07:58 | Inpatient (IN) ==
[2022-01-02] MEDS ORDERED: diphenhydrAMINE 50 MG/ML VIAL IV STA (08:10)
[2022-01-02] MEDS ORDERED: ONDANSETRON INJ 2 MG/ML 2 ML VIAL IV STA (08:10)
[2022-01-02] MEDS ORDERED: SODIUM CHLORIDE 0.9% 1000ML 1,000 ML IV STA (08:10)
--- NOTE | 2022-01-02 08:28 | Emergency Department Note ---
History of Present Illness General Chief complaint: Dehydration Stated complaint: VOMITING, DIARRHEA, NAUSEA, DEHYDRATION Time Seen by Provider: 01/02/22 08:04 History of Present Illness Maximum Pain Intensity: 4 Pleasant 61-year-old male who presents to the emergency department with his with complaint of generalized abdominal pain, nausea, vomiting and diarrhea. The reports that he has had copious amounts of both vomiting and diarrhea overnight. The patient reports that he could not sleep. The patient reports that he was soaked with sweat this morning, but did not check his temperature. The patient denies any pain extending into the back. He also reports itchiness of his abdomen. Is eating any unusual foods. He also denies any other known sick contacts. Patient reports that he is up-to-date on his COVID-19 vaccinations. The patient rates his overall discomfort an 8 out of 10. Home Medications Medication Instructions Recorded Confirmed Type blood sugar diagnostic (OneTouch #50 ea 06/18/20 07/19/21 Rx Ultra Blue Test Strip) aspirin 81 mg tablet,delayed 81 mg PO QAM #30 tabs 04/05/21 07/19/21 Rx release nitroglycerin 0.4 mg sublingual 0.4 mg sublingual PRN PRN chest 04/05/21 07/19/21 Rx tablet (Nitrostat) pain #1 btl metoprolol succinate 25 mg 25 mg PO DAILY #30 tabs 04/12/21 07/19/21 Rx tablet,extended release 24 hr ticagrelor 90 mg tablet (Brilinta) 90 mg PO BID #60 tabs 04/12/21 07/19/21 Rx atorvastatin 80 mg tablet 80 mg PO QAM #90 tabs 09/12/21 Rx losartan 25 mg tablet 25 mg PO DAILY #90 tabs 09/30/21 09/30/21 Rx Allergies Allergy/AdvReac Type Severity Reaction Status Date / Time shellfish derived Allergy Intermediate THOAT Verified 09/30/21 16:02 AVERY Past Med/Surg History Medical History Benign essential hypertension CAD (coronary artery disease) Diabetic peripheral neuropathy associated with type 2 diabetes mellitus Diabetic ulcer of left foot associated with type 2 diabetes mellitus, limited to breakdown of skin HFrEF (heart failure with reduced ejection fraction) Hyperlipidemia Peripheral neuropathy Prostate cancer screening Prostate cancer screening Thoracic aortic aneurysm (TAA) Tobacco use disorder Type 2 diabetes mellitus Surgical History History of cardiac cath History of colonoscopy Status post ORIF of fracture of ankle "left" Family History Father Heart disease Prostate cancer Mother Diabetes Myocardial infarction Denies family history of Ovarian cancer Breast cancer Colorectal cancer Social History Smoking Status: Never smoker Tobacco Type: Cigarettes Cigarettes Per Day: 10; Hx Alcohol Use: No Hx Substance Use: No Preferred Language: Kiswahili Communication Ability: Effective Visual Impairment: Limited Hearing Ability: Normal Washroom Operator Required: No Beliefs That Will Affect Care: None marital status: single Current Living Situation: Alone Current Living Situation Comment: ex- current occupational status: employed current occupation: currently off work on medical leave How many Children do You have: 0 Feels Safe at Home: Yes Safety Concerns: Feels Safe At This Time during the past year weight has: remained stable Assistive Devices: Glasses Review of Systems 10 system review was performed and was negative except for pertinent positives and negatives as indicated in history of present illness Physical Exam Vital Signs Vital Signs - 24 hr 01/02/22 08:01 01/02/22 08:45 01/02/22 10:59 Temperature 36.3 C L Temperature Source Temporal Artery Scan Pulse Rate 110 H Pulse Rate [Apical] 96 H 80 Pulse Rhythm [Apical] Regular Pulse Strength [Apical] Normal Respiratory Rate 20 18 18 Respiratory Effort / Characteristics Non-Labored Spontaneous Non-Labored Spontaneous Respiratory Depth Normal Normal Respiratory Pattern Regular Regular Blood Pressure 103/70 Blood Pressure [Right Arm] 120/84 105/73 Blood Pressure Mean 81 Blood Pressure Mean [Right Arm] 96 83 Blood Pressure Position Sitting Blood Pressure Position [Right Arm] Lying Pulse Oximetry 94 96 98 Oxygen Delivery Method Room Air Room Air Sepsis Recent Fever Within 48 Hours No Sepsis New/Unexplained Change in Mental Status No Sepsis Action Taken by Nursing No Action Required 01/02/22 12:00 Temperature Temperature Source Pulse Rate Pulse Rate [Apical] 87 Pulse Rhythm [Apical] Regular Pulse Strength [Apical] Normal Respiratory Rate 18 Respiratory Effort / Characteristics Non-Labored Spontaneous Respiratory Depth Normal Respiratory Pattern Regular Blood Pressure Blood Pressure [Right Arm] 101/73 Blood Pressure Mean Blood Pressure Mean [Right Arm] 82 Blood Pressure Position Blood Pressure Position [Right Arm] Lying Pulse Oximetry 94 Oxygen Delivery Method Room Air Sepsis Recent Fever Within 48 Hours Sepsis New/Unexplained Change in Mental Status Sepsis Action Taken by Nursing CONSTITUTIONAL: Obese male in moderate discomfort. He is scratching his abdomen. HEENT: Normocephalic, atraumatic. Pupils equal, round and reactive. No scleral icterus or conjunctival injection/pallor. NECK: Full active range of motion without discomfort. LYMPHATICS: No cervical chain adenopathy. RESPIRATORY: Clear to auscultation bilaterally with no wheezing, crackles, r honchi or stridor. CARDIOVASCULAR: Regular rate and rhythm with no murmurs, rubs or gallops. GASTROINTESTINAL: Bowel sounds present in all quadrants. Patient has mild and generalized abdominal tenderness to palpation without rigidity, guarding or rebound. Negative McBurney's point tenderness. Negative CVA tenderness. MUSCULOSKELETAL: Full range of motion of all joints without discomfort. INTEGUMENTARY: Examination shows erythema of the anterior abdomen likely from the patient's scratching. No pustules, vesicles, bullae or other concerning skin lesions. Patient has a few smaller erythematous raised lesions on the lower central lumbar region that do varun with pressure. HEMATOLOGIC: No ecchymosis or petechiae. PSYCHIATRIC: Positive affect. NEUROLOGIC: No focal neurologic deficits noted. Course Course Patient history and physical exam were performed. Nurses notes were reviewed. IV access was established, and labs were drawn. The patient was initially hydrated with a liter normal saline. He was also administered IV Benadryl and Zofran for nausea and pruritus. The patient refused any analgesics. Review of labs shows a notable leukocytosis with left shift and 6% bandemia. Review of labs shows an elevated creatinine of 1.49 with an anion gap of 15. BUN is normal. Random glucose is 282. Patient has an elevated calcium and total bilirubin. High sensitive troponin was also elevated at 30.3. Lipase and TSH were normal. An ECG was performed, showing a questionable ST-T wave abnormality and lateral ischemia. No ST elevation appreciated. The patient was placed on color television console monitor while in the emergency department. Patient did report improvement of symptoms with IV hydration and medications administered. An abdomen obstruction series with a PA chest view was concerning for small bowel obstruction. Findings were discussed with Dr. Vargas, ED attending physician, who also evaluated the patient upon initial presentation, and recommends CT imaging of the abdomen and pelvis to determine if this is a full/partial small bowel obstruction, or possible ileus, given the fact that the patient has had copious diarrhea. CT with IV contrast of the abdomen and pelvis shows possibility of a partial small bowel obstruction, versus ileus/enteritis. Given that the patient has multiple abnormalities, including an elevated troponin and abnormal ECG findings (given the patient's recent history of inferior wall TN); dehydration from persistent vomiting and diarrhea; as well as CT imaging concerning for possible partial small bowel obstruction, I did recommend hospitalist evaluation, and the patient was in agreement. A repeat 3- hour troponin and ECG were also performed, showing a bump in the patient's troponin, as well as lateral ischemic changes. Findings were discussed with the [facility] hospitalist service (Dr. Dewitt), who was agreed with admission. Please see the hospitalist service for further treatment and final disposition. Administered Medications Lactated Ringer's (Lr) 1,000 mls @ 80 mls/hr IV .[id number] NILESH Stop: 01/03/22 15:40 Last Admin: 01/02/22 14:41 Dose: 80 mls/hr Documented By: MS Discontinued Medications Aspirin (Aspirin 81 Mg Chew) 81 mg PO ONE ONE Stop: 01/02/22 13:23 Last Admin: 01/02/22 13:32 Dose: 81 mg Documented By: ALECIA Diphenhydramine HCl (Diphenhydramine 50 Mg/Ml Vial) 25 mg IV NOW STA Stop: 01/02/22 08:11 Last Admin: 01/02/22 08:27 Dose: 25 mg Documented By: ALECIA Sodium Chloride (Nss 1000ml) 1,000 mls @ 999 mls/hr IV .Q1H1M STA Stop: 01/02/22 09:10 Last Infusion: 01/02/22 09:30 Dose: 0 mls/hr Documented By: Admin: 01/02/22 08:27 Dose: 999 mls/hr Documented By: ALECIA Sodium Chloride (Nss 1000ml) 1,000 mls @ 999 mls/hr IV .Q1H1M ONE Stop: 01/02/22 10:48 Last Infusion: 01/02/22 11:01 Dose: 0 mls/hr Documented By: Admin: 01/02/22 09:58 Dose: 999 mls/hr Documented By: ALECIA Ondansetron HCl (Ondansetron Inj 2 Mg/Ml 2 Ml Vial) 4 mg IV NOW STA Stop: 01/02/22 08:11 Last Admin: 01/02/22 08:27 Dose: 4 mg Documented By: ALECIA Ticagrelor (Ticagrelor 90 Mg Tab) 90 mg PO ONE ONE Stop: 01/02/22 13:23 Last Admin: 01/02/22 13:32 Dose: 90 mg Documented By: ALECIA Medical Decision Making Medical Records Attestation: I reviewed the patient's medical records. Home Medications Current Medication List: was personally reviewed by me Laboratory Data Attestation: I reviewed the patient's lab results. Result diagrams: 01/02/22 08:30 01/02/22 08:30 Lab Results 01/02/22 01/02/22 01/02/22 Range/Units 08:30 08:30 08:30 WBC 18.79 H (4.8-10.8) K/ul RBC 6.02 (4.63-6.08) M/uL Hgb 18.2 H (14.0-18.0) g/dl Hct 51.8 H (40.1-51.0) % MCV 86.0 (80.0-100.0) fL MCH 30.2 (25.0-34.0) pg MCHC 35.1 (32.0-36.0) g/dL RDW Std Deviation 39.5 (36.4-46.3) fL RDW Coeff of Denilson 12.7 (11.5-14.5) % Plt Count 273 (130-400) K/uL MPV 8.9 L (9.4-12.4) fL Immature Gran % (Auto) 0.3 % Neut % (Auto) 84.5 % Lymph % (Auto) 5.6 % [place] % (Auto) 9.0 % Eos % (Auto) 0.1 % Baso % (Auto) 0.5 % Neut # (Auto) 15.87 H (1.4-6.5) K/uL Lymph # (Auto) 1.06 L (1.2-3.4) K/uL [place] # (Auto) 1.70 H (0.24-0.82) K/uL Eos # (Auto) 0.01 (0-0.50) K/uL Baso # (Auto) 0.09 (0-0.2) K/uL Immature Gran # (Auto) 0.06 H (0.00-0.02) K/uL Sodium 137 (136-145) mmol/L Potassium 3.9 (3.5-5.1) mmol/L Chloride 98 (98-107) mmol/L Carbon Dioxide 24 (21-32) mmol/L Anion Gap 15 H (3-11) BUN 23 (6-23) mg/dl Creatinine 1.49 H (0.6-1.4) mg/dl Est Cr Clr Drug Dosing 61.9 ml/min Est GFR ( Amer) 57.1 ml/min Est GFR (Non-Af Amer) 49.2 ml/min BUN/Creatinine Ratio 15.4 (10-20) Glucose 282 H (70-99(Fasting)) mg/dl Calcium 10.2 H (8.5-10.1) mg/dl Total Bilirubin 1.1 H (0.2-1.0) mg/dl AST 21 (13-39) U/L ALT 30 (7-52) U/L Alkaline Phosphatase 93 (34-104) U/L Troponin I High Sens 30.3 H (0-20) pg/ml Total Protein 8.9 H (6.0-8.3) gm/dl Albumin 5.2 H (3.4-5.0) gm/dl Globulin 3.7 (2.5-4.0) gm/dl Albumin/Globulin Ratio 1.4 (0.9-2) Lipase 27 (11-82) U/L Procalcitonin (0-0.5) ng/ml TSH 2.321 (0.300-4.500) uIu/ml Lyme Disease IgG Ab (Negative) Lyme Disease IgM Ab (Negative) SARS-CoV-2, RNA, NAAT (NEGATIVE) 01/02/22 01/02/22 01/02/22 Range/Units 08:30 08:30 11:51 WBC (4.8-10.8) K/ul RBC (4.63-6.08) M/uL Hgb (14.0-18.0) g/dl Hct (40.1-51.0) % MCV (80.0-100.0) fL MCH (25.0-34.0) pg MCHC (32.0-36.0) g/dL RDW Std Deviation (36.4-46.3) fL RDW Coeff of Denilson (11.5-14.5) % Plt Count (130-400) K/uL MPV (9.4-12.4) fL Immature Gran % (Auto) % Neut % (Auto) % Lymph % (Auto) % [place] % (Auto) % Eos % (Auto) % Baso % (Auto) % Neut # (Auto) (1.4-6.5) K/uL Lymph # (Auto) (1.2-3.4) K/uL [place] # (Auto) (0.24-0.82) K/uL Eos # (Auto) (0-0.50) K/uL Baso # (Auto) (0-0.2) K/uL Immature Gran # (Auto) (0.00-0.02) K/uL Sodium (136-145) mmol/L Potassium (3.5-5.1) mmol/L Chloride (98-107) mmol/L Carbon Dioxide (21-32) mmol/L Anion Gap (3-11) BUN (6-23) mg/dl Creatinine (0.6-1.4) mg/dl Est Cr Clr Drug Dosing ml/min Est GFR ( Amer) ml/min Est GFR (Non-Af Amer) ml/min BUN/Creatinine Ratio (10-20) Glucose (70-99(Fasting)) mg/dl Calcium (8.5-10.1) mg/dl Total Bilirubin (0.2-1.0) mg/dl AST (13-39) U/L ALT (7-52) U/L Alkaline Phosphatase (34-104) U/L Troponin I High Sens (0-20) pg/ml Total Protein (6.0-8.3) gm/dl Albumin (3.4-5.0) gm/dl Globulin (2.5-4.0) gm/dl Albumin/Globulin Ratio (0.9-2) Lipase (11-82) U/L Procalcitonin 0.18 (0-0.5) ng/ml TSH (0.300-4.500) uIu/ml Lyme Disease IgG Ab Negative (Negative) Lyme Disease IgM Ab Negative (Negative) SARS-CoV-2, RNA, NAAT NEGATIVE (NEGATIVE) 01/02/22 Range/Units 12:03 WBC (4.8-10.8) K/ul RBC (4.63-6.08) M/uL Hgb (14.0-18.0) g/dl Hct (40.1-51.0) % MCV (80.0-100.0) fL MCH (25.0-34.0) pg MCHC (32.0-36.0) g/dL RDW Std Deviation (36.4-46.3) fL RDW Coeff of Denilson (11.5-14.5) % Plt Count (130-400) K/uL MPV (9.4-12.4) fL Immature Gran % (Auto) % Neut % (Auto) % Lymph % (Auto) % [place] % (Auto) % Eos % (Auto) % Baso % (Auto) % Neut # (Auto) (1.4-6.5) K/uL Lymph # (Auto) (1.2-3.4) K/uL [place] # (Auto) (0.24-0.82) K/uL Eos # (Auto) (0-0.50) K/uL Baso # (Auto) (0-0.2) K/uL Immature Gran # (Auto) (0.00-0.02) K/uL Sodium (136-145) mmol/L Potassium (3.5-5.1) mmol/L Chloride (98-107) mmol/L Carbon Dioxide (21-32) mmol/L Anion Gap (3-11) BUN (6-23) mg/dl Creatinine (0.6-1.4) mg/dl Est Cr Clr Drug Dosing ml/min Est GFR ( Amer) ml/min Est GFR (Non-Af Amer) ml/min BUN/Creatinine Ratio (10-20) Glucose (70-99(Fasting)) mg/dl Calcium (8.5-10.1) mg/dl Total Bilirubin (0.2-1.0) mg/dl AST (13-39) U/L ALT (7-52) U/L Alkaline Phosphatase (34-104) U/L Troponin I High Sens 219.3 H* D (0-20) pg/ml Total Protein (6.0-8.3) gm/dl Albumin (3.4-5.0) gm/dl Globulin (2.5-4.0) gm/dl Albumin/Globulin Ratio (0.9-2) Lipase (11-82) U/L Procalcitonin (0-0.5) ng/ml TSH (0.300-4.500) uIu/ml Lyme Disease IgG Ab (Negative) Lyme Disease IgM Ab (Negative) SARS-CoV-2, RNA, NAAT (NEGATIVE) Imaging Data Attestation: I personally reviewed and interpreted this imaging study as follows: My Impression: My interpretation of initial abdomen obstruction series with a PA chest view is concerning for small bowel obstruction. No consolidations or pneumothorax noted. CT with IV contrast of the abdomen and pelvis is concerning for possible partial small bowel versus ileus/enteritis. Radiologist reports were also reviewed. Radiologist's Impression: Chest/Abdomen X-ray 01/02/22 08:10 PA CHEST WITH ABDOMINAL SERIES CLINICAL HISTORY: Generalized abdominal pain. Nausea and vomiting. FINDINGS: A PA chest radiograph is compared to study dated 04/03/2021. Correlation is made with chest CT dated 07/09/2016. The heart is mildly enlarged. The pulmonary vasculature is noncongested. There is bibasilar scarring/atelectasis. A large calcified granuloma is again seen at the right lung base. No airspace consolidation or large pleural effusion is identified. No pneumothorax is seen. The skeletal structures are osteopenic. The bony thorax is grossly intact. Supine and erect abdominal radiographs are obtained. No prior studies are available for comparison at the time of dictation. There are distended and gas- filled loops of small bowel which measure up to 5 cm diameter. Air-fluid levels are seen on the upright images. Findings are consistent with a small bowel obstruction. No evidence of intraperitoneal free air is seen. Calcified granulomas are noted in the spleen. Phleboliths are seen in the pelvis. The lumbosacral spine and bony pelvis appear intact. IMPRESSION: 1. Mild cardiomegaly with no active disease in the chest. 2. Small bowel obstruction. ACT 112: Negative or not required by law. Electronically signed by: Oscar Knight M.D. 01/02/2022 9:54 AM Abdomen/Pelvis CT 01/02/22 09:58 CT OF THE ABDOMEN AND PELVIS WITHOUT CONTRAST CLINICAL HISTORY: Nausea, vomiting and diarrhea. Evaluate for small bowel obstruction. COMPARISON STUDY: Abdominal series performed earlier today. TECHNIQUE: Axial images of the abdomen and pelvis were obtained without IV contrast. Images were reviewed in the axial, sagittal, and coronal planes. Automated exposure control was utilized for the study. A dose lowering technique was utilized adhering to the principles of ALARA. FINDINGS: Evidence for a previous granulomatous process is noted with a calcified mediastinal lymph node, a calcified granuloma within the right lower l obe as well as calcified granulomas within the spleen. Stomach is distended and fluid-filled. The proximal to mid small bowel is mildly dilated and fluid- filled. Loops measure up to 3.1 cm in caliber. No discrete transition point is identified although distal small bowel is relatively decompressed. There is fluid within the right colon. Appendix is normal. 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 Evaluation of the abdomen and pelvis is suboptimal on this unenhanced exam. Hepatic steatosis is noted. There are gallstones within the gallbladder. A 1.5 cm left adrenal nodule is unchanged since chest CT of July 09, 2016. This is benign. There is no hydronephrosis. Pancreas is unremarkable on this unenhanced exam. There is a splenule. Prostate is mildly enlarged. No acute fracture or suspicious lesion within visualized skeletal structures. IMPRESSION: 1. Mildly dilated fluid-filled proximal to mid small bowel. No discrete transition point although distal small bowel relatively decompressed. The findings could reflect a partial small bowel obstruction. However, an enteritis/ileus could appear similar. 2. Moderately distended fluid-filled stomach. 3. Cholelithiasis. 4. Hepatic steatosis. ACT 112: Negative or not required by law. Electronically signed by: Obi Dickey M.D. 01/02/2022 11:16 AM ECG Data Attestation: I personally reviewed and interpreted this ECG as follows: Indication: + diaphoresis, + nausea, + vomiting and + weakness Rate (beats per minute): 97 Rhythm: + normal sinus ECG ST segments: + Nonspecific ST abnormalities Comparison ECG Date: from (04/04/2021) Additional Comments: A 3-hour repeat ECG shows T wave inversions and downsloping ST-T waves when compared to initial ECG of today. Blood Pressure Blood Pressure Findings: Normal blood pressure MDM Narrative Cardiac monitoring: An order was placed for continuous cardiac monitoring. The monitor shows a rate of[] with [] rhythm. threat monitoring analyst history was reviewed throughout the evaluation, and no dysrhythmias were noted. Patient presents emergency department with complaint of nausea, vomiting and richa rrhea. Patient also appears significantly dehydrated. The patient was hydrated with 2 L of normal saline. The patient does have evidence for acute kidney injury. Imaging is also concerning for possible partial small bowel obstruction versus enteritis/ileus. The patient also has an increasing high sensitive troponin, as well as ECG changes. The patient does have a known history of severe coronary artery disease, status post inferior wall TN this past fall. I do feel that the patient warrants further admission and observation. Impression & Plan Partial small bowel obstruction, Coronary artery disease, Nausea, vomiting and diarrhea, Acute kidney injury Discharge Plan Visit Data Chief Complaint: Dehydration Stated Complaint: VOMITING, DIARRHEA, NAUSEA, DEHYDRATION ED Provider: Song Vargas ED Midlevel Provider: Amari Boothe Discharge Problem: Partial small bowel obstruction, Coronary artery disease, Nausea, vomiting and diarrhea, Acute kidney injury Patient Disposition: Admitted As Inpatient Discharge Instructions Interventions: ED Discharge Assessment Last Done: 01/02/22 13:41 : Coronary artery disease Qualifiers: Coronary Disease-Associated Artery/Lesion type: [place] artery [place] vs. transplanted heart: [place] heart Associated angina: without angina Qualified Code(s): I25.10 - Atherosclerotic heart disease of [place] coronary artery witho ut angina pectoris
[2022-01-02 08:37] LABS: Basophils # (auto) 0.09 K/uL (0-0.2); Basophils % (auto) 0.5 %; Eosinophils # (auto) 0.01 K/uL (0-0.50); Eosinophils % (auto) 0.1 %; Hematocrit (blood only) 51.8 % (40.1-51.0); Hemoglobin 18.2 g/dl (14.0-18.0); Immature Granulocytes # (auto) 0.06 K/uL (0.00-0.02); Immature Granulocytes % (auto) 0.3 %; Lymphocytes # (auto) 1.06 K/uL (1.2-3.4); Lymphocytes % (auto) 5.6 %; Mean Corpuscular Hemoglobin 30.2 pg (25.0-34.0); Mean Corpuscular Hgb Conc 35.1 g/dL (32.0-36.0); Mean Platelet Volume 8.9 fL (9.4-12.4); Neutrophils # (auto) 15.87 K/uL (1.4-6.5); Neutrophils % (auto) 84.5 %; Platelet Count 273 K/uL (130-400); RDW Coefficient of Variation 12.7 % (11.5-14.5); RDW Standard Deviation 39.5 fL (36.4-46.3); Red Blood Count 6.02 M/uL (4.63-6.08); White Blood Count 18.79 K/ul (4.8-10.8)
[2022-01-02 09:06] LABS: Troponin I High Sensitivity 30.3 pg/ml (0-20)
[2022-01-02 09:08] LABS: Albumin Globulin Ratio 1.4 (0.9-2); Albumin Level 5.2 gm/dl (3.4-5.0); BUN Creatinine Ratio 15.4 (10-20); Bilirubin,Total 1.1 mg/dl (0.2-1.0); Calcium 10.2 mg/dl (8.5-10.1); Creatinine Clr Calc Pharmacy 61.9 ml/min; Est GFR (African American) 57.1 ml/min; Est GFR (Non-African American) 49.2 ml/min; Globulin 3.7 gm/dl (2.5-4.0); Potassium 3.9 mmol/L (3.5-5.1); Total Protein 8.9 gm/dl (6.0-8.3)
[2022-01-02 09:29] LABS: Lyme Ab IgG w/WB Rflx Negative (Negative); Lyme Ab IgM w/WB Rflx Negative (Negative)
[2022-01-02] MEDS ORDERED: SODIUM CHLORIDE 0.9% 1000ML 1,000 ML IV ONE (09:48)
--- NOTE | 2022-01-02 09:55 | XRay Report ---
PA CHEST WITH ABDOMINAL SERIES CLINICAL HISTORY: Generalized abdominal pain. Nausea and vomiting. FINDINGS: A PA chest radiograph is compared to study dated 04/03/2021. Correlation is made with chest CT dated 07/09/2016. The heart is mildly enlarged. The pulmonary vasculature is noncongested. There is bibasilar scarring/atelectasis. A large calcified granuloma is again seen at the right lung base. No airspace consolidation or large pleural effusion is identified. No pneumothorax is seen. The skeletal structur es are osteopenic. The bony thorax is grossly intact. Supine and erect abdominal radiographs are obtained. No prior studies are available for comparison at the time of dictation. There are distended and gas-filled loops of small bowel which measure up to 5 cm diameter. Air-fluid levels are seen on the upright images. Findings are consistent with a small b owel obstruction. No evidence of intraperitoneal free air is seen. Calcified granulomas are noted in the spleen. Phleboliths are seen in the pelvis. The lumbosacral spine and bony pelvis appear intact. IMPRESSION: 1. Mild cardiomegaly with no active disease in the chest. 2. Small bowel obstruction. ACT 112: Negative or not required by law. Electronically signed by: Oscar Knight M.D. 01/02/2022 9:54 AM
--- NOTE | 2022-01-02 11:18 | CT Scan Report ---
CT OF THE ABDOMEN AND PELVIS WITHOUT CONTRAST CLINICAL HISTORY: Nausea, vomiting and diarrhea. Evaluate for small bowel obstruction. COMPARISON STUDY: Abdominal series performed earlier today. TECHNIQUE: Axial images of the abdomen and pelvis were obtained without IV contrast. Images were revi ewed in the axial, sagittal, and coronal planes. Automated exposure control was utilized for the teri dy. A dose lowering technique was utilized adhering to the principles of ALARA. FINDINGS: Evidence for a previous granulomatous process is noted with a calcified mediastinal lymph n ode, a calcified granuloma within the right lower lobe as well as calcified granulomas within the spl een. Stomach is distended and fluid-filled. The proximal to mid small bowel is mildly dilated and flu id-filled. Loops measure up to 3.1 cm in caliber. No discrete transition point is identified although distal small bowel is relatively decompressed. There is fluid within the right colon. Appendix is no rmal. 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 Evaluation of the abdomen and pelvis is suboptimal on thi s unenhanced exam. Hepatic steatosis is noted. There are gallstones within the gallbladder. A 1.5 cm left adrenal nodule is unchanged since chest CT of July 09, 2016. This is benign. There is no hydr onephrosis. Pancreas is unremarkable on this unenhanced exam. There is a splenule. Prostate is mildly enlarged. No acute fracture or suspicious lesion within visualized skeletal structures. IMPRESSION: 1. Mildly dilated fluid-filled proximal to mid small bowel. No discrete transition point although dis jorge small bowel relatively decompressed. The findings could reflect a partial small bowel obstruction . However, an enteritis/ileus could appear similar. 2. Moderately distended fluid-filled stomach. 3. Cholelithiasis. 4. Hepatic steatosis. ACT 112: Negative or not required by law. Electronically signed by: Obi Dickey M.D. 01/02/2022 11:16 AM
--- NOTE | 2022-01-02 12:13 | History & Physical Report ---
Date of Service January 02, 2022 Assessment & Plan (1) Nausea vomiting and diarrhea: Plan: With preceding 3 days of constipation and acid reflux followed by profuse nausea/vomiting/diarrhea that is nonbloody but came on acutely KUB with evidence of obstruction, CT abdomen/pelvis more with picture of partial SBO versus enteritis/ileus With leukocytosis of 18, mild tachycardia, likely secondary to infectious cause versus stress response. LFTs and lipase normal Clinically, he is moving his bowels and has no abdominal pains, improved with IV fluids and antiemetics. Most likely more consistent with enteritis at this point. No NG tube indicated at this time -Admit to PCU for telemetry monitoring given history of severe CAD, elevated troponin -Check lactate, blood cultures, procalcitonin -Check stool PCR -Keep n.p.o. except for meds with small sips -Antiemetics as needed -Hydrate with IV fluids -Follow CBC, CMP, magnesium in the morning-replete electrolytes as needed -Consult surgery given findings on imaging-appreciate opinion -Place NG tube if stops having output from below and continues to have nausea/vomiting or worsening abdominal distention or develops abdominal pains -Continue home metoprolol with hold parameters, and hold home losartan, atorvas tatin. Would continue aspirin and Brilinta given stents placed within the last year and high risk CAD (2) Partial small bowel obstruction: Plan: As above (3) NEIDA (acute kidney injury): Plan: Creatinine up to 1.49 on admission from baseline of 0.8, representing acute kidney injury Secondary to dehydration -Continue IV fluid hydration -Follow BMP in the morning -Hold home losartan (4) CAD (coronary artery disease): Plan: With elevated troponin on admission at 38 and aleksandr to 219 on repeat check ECG with lateral ST and T wave downsloping depression and inversions but seems fairly similar to previous He denies chest pains Most likely this is myocardial demand ischemia in the setting of acute illness and dehydration -Check echocardiogram -Monitor on telemetry -Continue home aspirin, Brilinta, metoprolol -Holding home losartan for acute kidney injury -Trend serial troponin -Daily ECGs Consult cardiology if develops chest pain or worsens I did notify his [employer], Dr. Partida, of his admission (5) Diabetic ulcer of left foot associated with type 2 diabetes mellitus, limited to breakdown of skin: Plan: Patient previously followed with podiatry but no longer does It seems callused over at this time, no evidence of infection, and no intervention needed acutely (6) Type 2 diabetes mellitus: Plan: Most recent hemoglobin A1c 6.3% in 07/2021 Well controlled, not on medications as an outpatient -Check hemoglobin A1c in the morning -Add on Accu-Cheks, NovoLog sliding scale (7) HFrEF (heart failure with reduced ejection fraction): Plan: EF 45%, ischemic cardiomyopathy With evidence of hypovolemia at this time as above Giving IV fluids gently Continue home metoprolol Holding home losartan (8) Diabetic peripheral neuropathy associated with type 2 diabetes mellitus: Plan: No meds for this Follow as an outpatient (9) Hyperlipidemia: Plan: Hold home statin while n.p.o. (10) Rash: Plan: Apparently had an itchy rash on his torso that he came to the ER which resolved with Benadryl. Monitor for recurrence Plan DVT prophylaxis-SCDs, Lovenox 40 Mg SQ Ext Disposition-admit to PCU Admission and Anticipated Discharge Date Admission Date: DVT prophylaxis-SCDs, Lovenox History of Present Illness Chief Complaint: Nausea/vomiting/diarrhea, abdominal pain Primary Care Provider: Oscar Pritchard MD This patient is a 61-year-old male with history of CAD s/p 2 TAY to the distal CX/left PLB with severe residual calcified RCA disease, mild LV dysfunction with EF 45%, DM2 with neuropathy, hyperlipidemia, TAA, left diabetic foot ulcer, previous smoker, who presents to the ER with profuse nausea/vomiting/diarrhea along with sweats since last night. He reports he was at his camp at the end of last week and started having an acid brash type symptoms in the back of his throat and mouth for couple of days. He also reports he had not moved his bowels in about 3 days and that was a little bit unusual for him. He denied any abdominal pains. He does not drink water from streams and was eating cheeseburgers that he believes were fully cooked. Then he returned from camp yesterday and last night started having profuse nonbloody diarrhea and vomiting simultaneously that would not stop. He was having sweats and did feel so weak that he lowered himself to the floor and was having trouble getting up but did not pass out. His brought him to the ER. He denies any chest pains or shortness of breath, no headache. He did also have an itchy rash on his torso that resolved in the ER with IV Benadryl. 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 He denies fevers. Nobody else around him has been sick. No difficulty with urination has been making his usual amount of urine. By the time I saw him, he was actually feeling a lot better. No further nausea, still without any abdominal pain. In the ER, he was found to be dehydrated with acute kidney injury, but LFTs, lipase, electrolytes otherwise normal. His WBC count was elevated at 18. Initial KUB showed a small bowel obstruction, but CT of the abdomen/pelvis showed findings more consistent with partial small bowel obstruction versus enteritis/ileus, with cholelithiasis, and evidence of prior granulomatous disease. He reportedly refused NG tube placement as per the ER PA. He was given 2 L of normal saline as well as Zofran and IV Benadryl. His COVID test negative.. His troponin was mildly elevated at 30 with some evidence of lateral ST depression and then repeat troponin shortly afterwards was up to 219.. Vital signs were stable other than some initial sinus tachycardia. He will be admitted for acute kidney injury, profuse nausea/vomiting/diarrhea with partial small bowel obstruction versus enteritis/ileus, and elevated troponin. Allergies Allergy/AdvReac Type Severity Reaction Status Date / Time shellfish derived Allergy Intermediate THOAT Verified 09/30/21 16:02 [facility] Medications Medication Instructions Recorded Confirmed Type blood sugar diagnostic (OneTouch #50 ea 06/18/20 07/19/21 Rx Ultra Blue Test Strip) aspirin 81 mg tablet,delayed 81 mg PO QAM #30 tabs 04/05/21 07/19/21 Rx release nitroglycerin 0.4 mg sublingual 0.4 mg sublingual PRN PRN chest 04/05/21 07/19/21 Rx tablet (Nitrostat) pain #1 btl metoprolol succinate 25 mg 25 mg PO DAILY #30 tabs 04/12/21 07/19/21 Rx tablet,extended release 24 hr ticagrelor 90 mg tablet (Brilinta) 90 mg PO BID #60 tabs 11/09/21 02/15/22 Rx atorvastatin 80 mg tablet 80 mg PO QAM #90 tabs 09/12/21 Rx losartan 25 mg tablet 25 mg PO DAILY #90 tabs 09/30/21 09/30/21 Rx Past Med/Surg History Medical History Benign essential hypertension CAD (coronary artery disease) Diabetic peripheral neuropathy associated with type 2 diabetes mellitus Diabetic ulcer of left foot associated with type 2 diabetes mellitus, limited to breakdown of skin HFrEF (heart failure with reduced ejection fraction) Hyperlipidemia Peripheral neuropathy Prostate cancer screening Prostate cancer screening Thoracic aortic aneurysm (TAA) Tobacco use disorder Type 2 diabetes mellitus Surgical History History of cardiac cath History of colonoscopy Status post ORIF of fracture of ankle "left" Family History Father Heart disease Prostate cancer Mother Diabetes Myocardial infarction Denies family history of Ovarian cancer Breast cancer Colorectal cancer Social History (Updated 01/02/22 @ 12:20 by Ailyn Dewitt MD) Smoking Status: Former smoker Tobacco Type: Cigarettes Cigarettes Per Day: 10; Hx Alcohol Use: Yes Alcohol type: beer Alcohol Intake Frequency: Monthly or Less Hx Substance Use: No Preferred Language: [place] Communication Ability: Effective Visual Impairment: Limited Hearing Ability: Normal Archival Records Clerk Required: No Beliefs That Will Affect Care: None marital status: single Current Living Situation: Significant Other Current Living Situation Comment: ex- current occupational status: employed current occupation: currently off work on medical leave How many Children do You have: 0 Feels Safe at Home: Yes during the past year weight has: remained stable Assistive Devices: Glasses Review of Systems Review of Systems: All systems reviewed & are unremarkable except as noted in HPI & below Physical Exam Constitutional: WD/WN, vitals as above Eyes: PERRL, conjunctivae normal, anicteric sclerae ENMT: external ear and nose normal, oropharynx normal Neck: trachea midline, no thyromegaly Respiratory: normal respiratory effort, lungs clear to auscultation Cardiovascular: RRR, no murmur, no edema Chest (Breasts): Chest: normal inspection of chest Gastrointestinal (Abdomen): normal bowel sounds, soft, nontender, no hepatosplenomegaly Inspection/Auscultation: + abdomen distended (Mild but soft) Musculoskeletal: Extremities: extremities normal to inspection; no cyanosis and no clubbing Skin: no rashes, warm and dry No further hives on torso Left great toe plantar surface with crusted callus with scab, no erythema or drainage Neurologic: moves all extremities and awake; no focal motor deficits Psychiatric: A+Ox3, euthymic affect Lymphatic: no lymphedema Results & Data Results & Data ([facility]) Vital Signs (Past 12 Hours) Vital Signs Temp Pulse Pulse Resp BP BP Pulse Ox 01/02/22 12:00 87 18 101/73 94 01/02/22 10:59 80 18 105/73 98 01/02/22 08:45 96 H 18 120/84 96 01/02/22 08:01 36.3 C L 110 H 20 103/70 94 O2 Del Method 01/02/22 12:00 Room Air 01/02/22 10:59 01/02/22 08:45 Room Air 01/02/22 08:01 Room Air Laboratory Results 01/02/22 01/02/22 01/02/22 Range/Units 12:03 11:51 08:30 WBC (4.8-10.8) K/ul RBC (4.63-6.08) M/uL Hgb (14.0-18.0) g/dl Hct (40.1-51.0) % MCV (80.0-100.0) fL MCH (25.0-34.0) pg MCHC (32.0-36.0) g/dL RDW Std Deviation (36.4-46.3) fL RDW Coeff of Denilson (11.5-14.5) % Plt Count (130-400) K/uL MPV (9.4-12.4) fL Immature Gran % (Auto) % Neut % (Auto) % Lymph % (Auto) % [place] % (Auto) % Eos % (Auto) % Baso % (Auto) % Neut # (Auto) (1.4-6.5) K/uL Lymph # (Auto) (1.2-3.4) K/uL [place] # (Auto) (0.24-0.82) K/uL Eos # (Auto) (0-0.50) K/uL Baso # (Auto) (0-0.2) K/uL Immature Gran # (Auto) (0.00-0.02) K/uL Sodium (136-145) mmol/L Potassium (3.5-5.1) mmol/L Chloride (98-107) mmol/L Carbon Dioxide (21-32) mmol/L Anion Gap (3-11) BUN (6-23) mg/dl Creatinine (0.6-1.4) mg/dl Est Cr Clr Drug Dosing ml/min Est GFR ( Amer) ml/min Est GFR (Non-Af Amer) ml/min BUN/Creatinine Ratio (10-20) Glucose (70-99(Fasting)) mg/dl Calcium (8.5-10.1) mg/dl Total Bilirubin (0.2-1.0) mg/dl AST (13-39) U/L ALT (7-52) U/L Alkaline Phosphatase (34-104) U/L Troponin I High Sens Pending (0-20) pg/ml Total Protein (6.0-8.3) gm/dl Albumin (3.4-5.0) gm/dl Globulin (2.5-4.0) gm/dl Albumin/Globulin Ratio (0.9-2) Lipase (11-82) U/L TSH (0.300-4.500) uIu/ml Lyme Disease IgG Ab Negative (Negative) Lyme Disease IgM Ab Negative (Negative) SARS-CoV-2, RNA, NAAT Pending 01/02/22 01/02/22 01/02/22 Range/Units 08:30 08:30 08:30 WBC 18.79 H (4.8-10.8) K/ul RBC 6.02 (4.63-6.08) M/uL Hgb 18.2 H (14.0-18.0) g/dl Hct 51.8 H (40.1-51.0) % MCV 86.0 (80.0-100.0) fL MCH 30.2 (25.0-34.0) pg MCHC 35.1 (32.0-36.0) g/dL RDW Std Deviation 39.5 (36.4-46.3) fL RDW Coeff of Denilson 12.7 (11.5-14.5) % Plt Count 273 (130-400) K/uL MPV 8.9 L (9.4-12.4) fL Immature Gran % (Auto) 0.3 % Neut % (Auto) 84.5 % Lymph % (Auto) 5.6 % [place] % (Auto) 9.0 % Eos % (Auto) 0.1 % Baso % (Auto) 0.5 % Neut # (Auto) 15.87 H (1.4-6.5) K/uL Lymph # (Auto) 1.06 L (1.2-3.4) K/uL [place] # (Auto) 1.70 H (0.24-0.82) K/uL Eos # (Auto) 0.01 (0-0.50) K/uL Baso # (Auto) 0.09 (0-0.2) K/uL Immature Gran # (Auto) 0.06 H (0.00-0.02) K/uL Sodium 137 (136-145) mmol/L Potassium 3.9 (3.5-5.1) mmol/L Chloride 98 (98-107) mmol/L Carbon Dioxide 24 (21-32) mmol/L Anion Gap 15 H (3-11) BUN 23 (6-23) mg/dl Creatinine 1.49 H (0.6-1.4) mg/dl Est Cr Clr Drug Dosing 61.9 ml/min Est GFR ( Amer) 57.1 ml/min Est GFR (Non-Af Amer) 49.2 ml/min BUN/Creatinine Ratio 15.4 (10-20) Glucose 282 H (70-99(Fasting)) mg/dl Calcium 10.2 H (8.5-10.1) mg/dl Total Bilirubin 1.1 H (0.2-1.0) mg/dl AST 21 (13-39) U/L ALT 30 (7-52) U/L Alkaline Phosphatase 93 (34-104) U/L Troponin I High Sens 30.3 H (0-20) pg/ml Total Protein 8.9 H (6.0-8.3) gm/dl Albumin 5.2 H (3.4-5.0) gm/dl Globulin 3.7 (2.5-4.0) gm/dl Albumin/Globulin Ratio 1.4 (0.9-2) Lipase 27 (11-82) U/L TSH 2.321 (0.300-4.500) uIu/ml Lyme Disease IgG Ab (Negative) Lyme Disease IgM Ab (Negative) SARS-CoV-2, RNA, NAAT Diagnostic Findings Chest/Abdomen X-ray 01/02/22 08:10 PA CHEST WITH ABDOMINAL SERIES CLINICAL HISTORY: Generalized abdominal pain. Nausea and vomiting. FINDINGS: A PA chest radiograph is compared to study dated 04/03/2021. Correlation is made with chest CT dated 07/09/2016. The heart is mildly enlarged. The pulmonary vasculature is noncongested. There is bibasilar scarring/atelectasis. A large calcified granuloma is again seen at the right lung base. No airspace consolidation or large pleural effusion is identified. No pneumothorax is seen. The skeletal structures are osteopenic. The bony thorax is grossly intact. Supine and erect abdominal radiographs are obtained. No prior studies are available for comparison at the time of dictation. There are distended and gas- filled loops of small bowel which measure up to 5 cm diameter. Air-fluid levels are seen on the upright images. Findings are consistent with a small bowel obstruction. No evidence of intraperitoneal free air is seen. Calcified granulomas are noted in the spleen. Phleboliths are seen in the pelvis. The lumbosacral spine and bony pelvis appear intact. IMPRESSION: 1. Mild cardiomegaly with no active disease in the chest. 2. Small bowel obstruction. ACT 112: Negative or not required by law. Electronically signed by: Oscar Knight M.D. 01/02/2022 9:54 AM Abdomen/Pelvis CT 01/02/22 09:58 CT OF THE ABDOMEN AND PELVIS WITHOUT CONTRAST CLINICAL HISTORY: Nausea, vomiting and diarrhea. Evaluate for small bowel obstruction. COMPARISON STUDY: Abdominal series performed earlier today. TECHNIQUE: Axial images of the abdomen and pelvis were obtained without IV contrast. Images were reviewed in the axial, sagittal, and coronal planes. Automated exposure control was utilized for the study. A dose lowering technique was utilized adhering to the principles of ALARA. FINDINGS: Evidence for a previous granulomatous process is noted with a calcified mediastinal lymph node, a calcified granuloma within the right lower lobe as well as calcified granulomas within the spleen. Stomach is distended and fluid-filled. The proximal to mid small bowel is mildly dilated and fluid- filled. Loops measure up to 3.1 cm in caliber. No discrete transition point is identified although distal small bowel is relatively decompressed. There is fluid within the right colon. Appendix is normal. 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 Evaluation of the abdomen and pelvis is suboptimal on this unenhanced exam. Hepatic steatosis is noted. There are gallstones within the gallbladder. A 1.5 cm left adrenal nodule is unchanged since chest CT of July 09, 2016. This is benign. There is no hydronephrosis. Pancreas is unremarkable on this unenhanced exam. There is a splenule. Prostate is mildly enlarged. No acute fracture or suspicious lesion within visualized skeletal structures. IMPRESSION: 1. Mildly dilated fluid-filled proximal to mid small bowel. No discrete transition point although distal small bowel relatively decompressed. The findings could reflect a partial small bowel obstruction. However, an enteritis/ileus could appear similar. 2. Moderately distended fluid-filled stomach. 3. Cholelithiasis. 4. Hepatic steatosis. ACT 112: Negative or not required by law. Electronically signed by: Obi Dickey M.D. 01/02/2022 11:16 AM ECG Additional Comments: ECG 01/02/2022 at 8:36 AM with normal sinus rhythm with rate 97, ST and T wave abnormality in lateral leads, similar to previous ECG 01/02/2022 at 11:58 AM with normal sinus rhythm, rate 88, ST downsloping depression and T wave inversions similar to previous but slightly more prominent lateral leads Code Status & VTE Plan Code Status DNR/DNI as discussed with patient with his at the bedside VTE Prophylaxis Plan VTE Prophylaxis will be ordered: Yes PG Care Time/CCT Total # of Minutes Spent Total Time Spent with Patient: Total time spent is greater than 50% in coordination of care (as documented) at patient's floor/unit and/or counseling patient: Coding Level of Care Code 97373 Initial Inpt Care Lvl 3 Diagnoses Nausea vomiting and diarrhea R11.2; R19.7 Partial small bowel obstruction K56.600 NEIDA (acute kidney injury) N17.9 CAD (coronary artery disease) I25.10 Diabetic ulcer of left foot associated with type 2 diabetes mellitus, limited to breakdown of skin E11.621; L97.521 Type 2 diabetes mellitus E11.9 HFrEF (heart failure with reduced ejection fraction) I50.20 Diabetic peripheral neuropathy associated with type 2 diabetes mellitus E11.42 Hyperlipidemia E78.5 Rash R21
--- NOTE | 2022-01-02 12:36 | Electrocardiogram Report ---
Test Reason : Blood Pressure : / mmHG Vent. Rate : 097 BPM Atrial Rate : 097 BPM P-R Int : 188 ms QRS Dur : 098 ms QT Int : 372 ms P-R-T Axes : 052 -09 115 degrees QTc Int : 472 ms Normal sinus rhythm Possible Left atrial enlargement Low voltage QRS Abnormal ECG When compared with ECG of 04-APR-2021 14:58, T wave inversion no longer evident in Inferior leads T wave inversion less evident in Lateral leads QT has shortened Confirmed by Nikolai Reyes ([id number]) on 01/02/2022 12:36:24 PM Referred By: Confirmed By:Luciano Reyes
[2022-01-02] MEDS ORDERED: TICAGRELOR 90 MG TAB PO ONE (13:22)
[2022-01-02] MEDS ORDERED: ASPIRIN 81 MG CHEW PO ONE (13:22)
[2022-01-02] MEDS: LACTATED RINGER'S 1,000 ML IV SCH (14:41)
[2022-01-02] MEDS ORDERED: GLUCAGON FOR INJ 1 MG VIAL SQ PRN (14:41)
[2022-01-02] MEDS ORDERED: GLUCOSE 10 TAB/TUBE PO PRN (14:41)
[2022-01-02] MEDS ORDERED: GLUCOSE 40% GEL 15 GM TUBE PO PRN (14:41)
[2022-01-02] MEDS ORDERED: DEXTROSE 50% 50 ML SYRINGE IV PRN (14:41)
[2022-01-02] MEDS ORDERED: CARBOHYDRATES FOR HYPOGLYCEMIA PO PRN (14:41)
[2022-01-02] MEDS ORDERED: ONDANSETRON INJ 2 MG/ML 2 ML VIAL IV PRN (14:41)
[2022-01-02] MEDS ORDERED: ACETAMINOPHEN 325 MG TAB PO PRN (14:41)
--- NOTE | 2022-01-02 14:53 | Surgery Consultation ---
Date of Consultation January 02, 2022 Assessment & Plan (1) Nausea vomiting and diarrhea: This is a 61yM with a PMH of CAD s/p stent placement on Brilinta, DM2, heart failure, h/o tobacco use who presented to the [facility] ED on 01/02/22 with complaints of nausea, vomiting, and diarrhea, mostly starting yesterday evening. He was up almost every hour last night with n/v/d. He reported to the ER where he underwent a CT a/p that revealed a mildly dilated fluid-filled proximal to mid small bowel without transition point reflecting a partial small bowel obstruction vs enteritis/ileus. On exam patient's abdomen is soft, mildly distended, without tenderness to palpation. Vital signs are stable. Labs notable for WBC 18, lactate 2.4, troponin 219, Cr: 1.4. He is being rehydrated for his signs of dehydration. Troponin will be trended per hospitalists. As patient not having further nausea/vomiting and denies any abdominal pain okay to hold off on NGT for now. Should his symptoms return would revisit placing it. Has no abdominal surgical history. Findings likely related to enteritis. No plans for acute surgical intervention at this time. Will follow. Supervising Physician Co-Signing Physician Notes I personally saw and evaluated the patient with Jacquelyn Higginbotham PA-C and agree with the assessment and plan. 61-year-old male with enteritis versus partial small bowel obstruction CT images and results personally viewed by me, has mild dilation of the small bowel throughout Clinically his picture is more of a enteritis as at this point he has no abdominal pain is passing significant amounts of flatus We will advance his diet as tolerated, will trial clears this morning No plans for any surgical intervention Will follow History of Present Illness Attending Physician: Ailyn Dewitt MD History of Present Illness This is a 61yM with a PMH of CAD s/p stent placement on Brilinta, DM2, heart failure, h/o tobacco use who presented to the [facility] ED on 01/02/22 with complaints of nausea, vomiting, and diarrhea. Patient reports into Sunday he had some acid reflux symptoms and constipation. He was able to go to the bathroom and felt fine until Sunday evening when he developed an upset stomach associated with nausea/vomiting and diarrhea. He states he was up almost every hour last night in the bathroom. He reports his last emesis was around 8am today. He presented to the ER due to his symptoms. He underwent a CT a/p that revealed a mildly dilated fluid-filled proximal to mid small bowel without transition point reflecting a partial small bowel obstruction vs enteritis/ileus. Patient denies any fevers/chills, CP/SOB, blood in his stools, or abdominal pain. He denies eating any uncooked or food that may have been poorly prepped. No prior abdominal surgical history. He currently is feeling much better and is denying any abdominal pain or nausea. Says his cardiac cath + stents was performed 03/[address] Partida. Allergies Allergy/AdvReac Type Severity Reaction Status Date / Time shellfish derived Allergy Intermediate THOAT Verified 09/30/21 16:02 [facility] Medications Medication Instructions Recorded Confirmed Type blood sugar diagnostic (OneTouch #50 ea 06/18/20 07/19/21 Rx Ultra Blue Test Strip) aspirin 81 mg tablet,delayed 81 mg PO QAM #30 tabs 04/05/21 07/19/21 Rx release nitroglycerin 0.4 mg sublingual 0.4 mg sublingual PRN PRN chest 04/05/21 07/19/21 Rx tablet (Nitrostat) pain #1 btl metoprolol succinate 25 mg 25 mg PO DAILY #30 tabs 04/12/21 07/19/21 Rx tablet,extended release 24 hr ticagrelor 90 mg tablet (Brilinta) 90 mg PO BID #60 tabs 04/12/21 07/19/21 Rx atorvastatin 80 mg tablet 80 mg PO QAM #90 tabs 09/12/21 Rx losartan 25 mg tablet 25 mg PO DAILY #90 tabs 09/30/21 09/30/21 Rx Patient History Medical History Benign essential hypertension CAD (coronary artery disease) Diabetic peripheral neuropathy associated with type 2 diabetes mellitus Diabetic ulcer of left foot associated with type 2 diabetes mellitus, limited to breakdown of skin HFrEF (heart failure with reduced ejection fraction) Hyperlipidemia Peripheral neuropathy Prostate cancer screening Prostate cancer screening Thoracic aortic aneurysm (TAA) Tobacco use disorder Type 2 diabetes mellitus Surgical History History of cardiac cath History of colonoscopy Status post ORIF of fracture of ankle "left" Family History Father Heart disease Prostate cancer Mother Diabetes Myocardial infarction Denies family history of Ovarian cancer Breast cancer Colorectal cancer Social History Smoking Status: Never smoker Tobacco Type: Cigarettes Cigarettes Per Day: 10; Hx Alcohol Use: No Hx Substance Use: No Preferred Language: Iranian Communication Ability: Effective Visual Impairment: Limited Hearing Ability: Normal [employer] Business [employer]st Required: No Beliefs That Will Affect Care: None marital status: single Current Living Situation: Alone Current Living Situation Comment: ex- current occupational status: employed current occupation: currently off work on medical leave How many Children do You have: 0 Feels Safe at Home: Yes Safety Concerns: Feels Safe At This Time during the past year weight has: remained stable Assistive Devices: Glasses Review of Systems Constitutional: no fever and no chills Respiratory: no dyspnea Cardiovascular: no chest pain Gastrointestinal: + nausea, + vomiting and + diarrhea/loose stools; no abdominal pain and no blood in stools Physical Exam Physical Exam: awake/alert, no acute distress Respiratory: normal respiratory effort Gastrointestinal (Abdomen): Inspection/Auscultation: + abdomen distended (mild ) Percussion/Palpation: abdomen soft; abdomen nontender Results & Data ([facility]) Vital Signs (Past 12 Hours) Vital Signs Temp Pulse Pulse Resp BP BP Pulse Ox 01/02/22 12:00 87 18 101/73 94 01/02/22 10:59 80 18 105/73 98 01/02/22 08:45 96 H 18 120/84 96 01/02/22 08:01 36.3 C L 110 H 20 103/70 94 O2 Del Method 01/02/22 12:00 Room Air 01/02/22 10:59 01/02/22 08:45 Room Air 01/02/22 08:01 Room Air Diagnostic Findings CT OF THE ABDOMEN AND PELVIS WITHOUT CONTRAST CLINICAL HISTORY: Nausea, vomiting and diarrhea. Evaluate for small bowel obstruction. COMPARISON STUDY: Abdominal series performed earlier today. TECHNIQUE: Axial images of the abdomen and pelvis were obtained without IV contrast. Images were reviewed in the axial, sagittal, and coronal planes. Automated exposure control was utilized for the study. A dose lowering technique was utilized adhering to the principles of ALARA. FINDINGS: Evidence for a previous granulomatous process is noted with a calcified mediastinal lymph node, a calcified granuloma within the right lower lobe as well as calcified granulomas within the spleen. Stomach is distended and fluid-filled. The proximal to mid small bowel is mildly dilated and fluid- filled. Loops measure up to 3.1 cm in caliber. No discrete transition point is identified although distal small bowel is relatively decompressed. There is fluid within the right colon. Appendix is normal. 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 Evaluation of the abdomen and pelvis is suboptimal on this unenhanced exam. Hepatic steatosis is noted. There are gallstones within the gallbladder. A 1.5 cm left adrenal nodule is unchanged since chest CT of July 09, 2016. This is benign. There is no hydronephrosis. Pancreas is unremarkable on this unenhanced exam. There is a splenule. Prostate is mildly enlarged. No acute fracture or suspicious lesion within visualized skeletal structures. IMPRESSION: 1. Mildly dilated fluid-filled proximal to mid small bowel. No discrete transition point although distal small bowel relatively decompressed. The findings could reflect a partial small bowel obstruction. However, an enteritis/ileus could appear similar. 2. Moderately distended fluid-filled stomach. 3. Cholelithiasis. 4. Hepatic steatosis. ACT 112: Negative or not required by law. Electronically signed by: Obi Dickey M.D. 01/02/2022 11:16 AM PG Care Time/CCT Total # of Minutes Spent Total Time Spent with Patient: Total time spent is greater than 50% in coordination of care (as documented) at patient's floor/unit and/or counseling patient: Coding Level of Care Code 51319 Inpt Consult Level 3 Diagnoses Nausea vomiting and diarrhea R11.2; R19.7
[2022-01-02] MEDS ORDERED: INSULIN ASPART PER UNIT SC SCH (16:30)
[2022-01-02] MEDS ORDERED: Nursing to Pharmacy Communication SCH (16:45)
[2022-01-02] MEDS: ENOXAPARIN INJ 40 MG/0.4 ML SYR SQ SCH (17:20)
--- NOTE | 2022-01-02 17:59 | XCELERA ---
[id number]
--- NOTE | 2022-01-02 18:07 | Electrocardiogram Report ---
Test Reason : Blood Pressure : / mmHG Vent. Rate : 088 BPM Atrial Rate : 088 BPM P-R Int : 172 ms QRS Dur : 094 ms QT Int : 394 ms P-R-T Axes : 023 -02 126 degrees QTc Int : 476 ms Normal sinus rhythm Low voltage QRS Abnormal ECG When compared with ECG of 02-JAN-2022 08:36, T wave inversion more evident in Lateral leads Confirmed by Nikolai Reyes ([id number]) on 01/02/2022 6:07:36 PM Referred By: REFERRED SELF Confirmed By:Luciano Reyes
[2022-01-02] MEDS: INSULIN ASPART PER UNIT SC SCH ×2 (18:28→23:43)
[2022-01-02] MEDS: TICAGRELOR 90 MG TAB PO SCH (20:23)
[2022-01-03] MEDS: LACTATED RINGER'S 1,000 ML IV SCH (02:07)
[2022-01-03] MEDS: INSULIN ASPART PER UNIT SC SCH ×4 (06:21→21:46)
[2022-01-03 06:39] LABS: Appearance Urine Cloudy (Clear); Bacteria Urine Automated Negative (Negative); Bilirubin Urine Negative (Negative); Blood Urine Negative (Negative); Color Urine Dark Yellow; Epithelial Cell Urine Auto >30 /lpf (0-5); Glucose Urine UA Negative (Negative); Ketones Urine Trace (Negative); Leukocyte Esterase Urine Negative (Negative); Nitrite Urine Negative (Negative); Protein Urine 1+ (Negative); RBC Urine Automated 0-4 /hpf (0-4); Urobilinogen Urine Negative (Negative); pH Urine 5.5 (4.5-7.5)
[2022-01-03 06:51] LABS: Calcium Oxalate Crystals Urine Present (None Prsent)
[2022-01-03 06:52] LABS: Cast Urine Automated >30 /lpf (0-5)
[2022-01-03 06:53] LABS: Mucus Urine Present (None Prsent)
[2022-01-03 07:14] LABS: Albumin Globulin Ratio 1.5 (0.9-2); Albumin Level 3.6 gm/dl (3.4-5.0); Bilirubin,Total 0.9 mg/dl (0.2-1.0); Creatinine Clr Calc Pharmacy 94.2 ml/min; Est GFR (African American) 97.1 ml/min; Est GFR (Non-African American) 83.8 ml/min; Globulin 2.4 gm/dl (2.5-4.0); Magnesium 1.6 mg/dl (1.7-2.4); Potassium 3.7 mmol/L (3.5-5.1); Troponin I High Sensitivity 295.4 pg/ml (0-20)
[2022-01-03 07:21] LABS: Basophils # (auto) 0.02 K/uL (0-0.2); Basophils % (auto) 0.2 %; Eosinophils # (auto) 0.39 K/uL (0-0.50); Hemoglobin 13.5 g/dl (14.0-18.0); Immature Granulocytes # (auto) 0.02 K/uL (0.00-0.02); Immature Granulocytes % (auto) 0.2 %; Lymphocytes % (auto) 30.6 %; Mean Corpuscular Hemoglobin 29.7 pg (25.0-34.0); Mean Corpuscular Hgb Conc 34.6 g/dL (32.0-36.0); Mean Corpuscular Volume 85.9 fL (80.0-100.0); Mean Platelet Volume 9.4 fL (9.4-12.4); Monocytes # (auto) 0.89 K/uL (0.24-0.82); Monocytes % (auto) 9.1 %; Neutrophils # (auto) 5.49 K/uL (1.4-6.5); Neutrophils % (auto) 55.9 %; Platelet Count 182 K/uL (130-400); RDW Coefficient of Variation 12.8 % (11.5-14.5); RDW Standard Deviation 39.6 fL (36.4-46.3); Red Blood Count 4.54 M/uL (4.63-6.08); White Blood Count 9.81 K/ul (4.8-10.8)
[2022-01-03 07:50] LABS: Estimated Average Glucose 151 mg/dl; Hemoglobin A1C 6.9 % (4.5-5.6)
--- NOTE | 2022-01-03 08:52 | Surgery Progress Note ---
Date of Service January 03, 2022 Assessment & Plan (1) Nausea, vomiting and diarrhea: Plan: Patient here with nausea/vomiting, diarrhea. CT scan with concerns for partial SBO vs enteritis No prior history of abdominal surgery Labs improved with rehydration WBC 9, Cr: 0.9 Patient without further nausea/vomiting or diarrhea. He is passing flatus. Abdomen non tender Symptoms seem more likely based on an enteritis picture instead of partial sbo We are okay with advancing diet to clears and see how he fairs Admission and Anticipated Discharge Date Admission Date: January 02, 2022 Supervising Physician Co-Signing Physician Notes I personally saw and evaluated the patient with Jacquelyn Higginbotham PA-C and agree with the assessment and plan. 61-year-old male with enteritis versus partial small bowel obstruction Clinically his picture is more of a enteritis as at this point he has no abdominal pain is passing significant amounts of flatus We will advance his diet as tolerated, will trial clears this morning No plans for any surgical intervention Will follow Subjective Patient denies any abdominal pain, nausea/vomiting. No further diarrhea. He is passing gas. Physical Exam Physical Exam: awake/alert, no acute distress Gastrointestinal (Abdomen): Percussion/Palpation: abdomen soft; abdomen nontender Results & Data ([facility]) Vital Signs (Past 12 Hours) Vital Signs Temp Pulse Pulse Resp BP Pulse Ox O2 Del Method 01/03/22 07:32 36.8 C 79 19 111/66 96 Room Air 01/03/22 07:03 72 01/03/22 03:20 36.7 C 66 18 122/74 94 Room Air 01/02/22 22:20 73 01/02/22 23:20 36.9 C 74 18 120/71 94 Room Air PG Care Time/CCT Total # of Minutes Spent Total Time Spent with Patient: Total time spent is greater than 50% in coordination of care (as documented) at patient's floor/unit and/or counseling patient: Coding Level of Care Code 85413 Subseq Hosp Care Lvl 1 Diagnoses Nausea, vomiting and diarrhea R11.2; R19.7
[2022-01-03] MEDS: METOPROLOL SUCC 25MG EXT REL TAB PO SCH (09:34)
[2022-01-03] MEDS: ASPIRIN 81 MG ECTAB PO SCH (09:34)
[2022-01-03] MEDS: TICAGRELOR 90 MG TAB PO SCH ×2 (09:35→21:46)
--- NOTE | 2022-01-03 11:26 | XRay Report ---
KUB HISTORY: R small bowel obstruction. Follow-up. COMPARISON: Chest and abdominal series 01/02/2022. FINDINGS: There again noted multiple dilated gas-filled loops of small bowel seen within the abdomen. These measure up to 5.3 cm in diameter. This is similar to the prior study. There is gas and stool r emaining within the nondistended colon. No renal calculi. No ureteral calculi. No pneumoperitoneum o r pneumatosis. IMPRESSION: No change in the partial small bowel obstruction pattern. ACT 112: Negative or not required by law. Electronically signed by: Kelvin Chao M.D. 01/03/2022 11:25 AM
--- NOTE | 2022-01-03 11:51 | Electrocardiogram Report ---
Test Reason : Blood Pressure : / mmHG Vent. Rate : 071 BPM Atrial Rate : 071 BPM P-R Int : 170 ms QRS Dur : 096 ms QT Int : 418 ms P-R-T Axes : 021 -11 127 degrees QTc Int : 454 ms Normal sinus rhythm Low voltage QRS Inferior infarct , age undetermined Poor R wave progression, consider anterior SC vs. lead placement vs. LVH Abnormal ECG Confirmed by Nikolai Reyes ([id number]) on 01/03/2022 11:50:39 AM Referred By: REFERRED SELF Confirmed By:Luciano Reyes
--- NOTE | 2022-01-03 13:24 | Cardiology Consultation ---
Date of Consultation January 03, 2022 Assessment & Plan (1) Coronary artery disease: (2) Elevated troponin: Plan 1. 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 His presentation was not consistent with that diagnosis. He is known to have residual severe coronary disease and would be prone to demand ischemia in certain settings. I do not think he requires any additional ischemic evaluation the absence of new symptoms. 2. Coronary artery disease: He had an acute myocardial infarction in March 2021. Overall LV function appears preserved. At this point seems reasonable to continue him on his current outpatient medical regimen which will include dual anti-platelet therapy, high-dose atorvastatin, metoprolol succinate and losartan. These medication should be restarted as soon as he is able. History of Present Illness Reason for Consultation: Elevated troponin, coronary disease Requesting Physician: Esdras Attending Physician: Sharla Austin MD History of Present Illness The patient is a 61-year-old gentleman with a history of coronary disease having suffered an acute myocardial infarction on 2020. He underwent percutaneous intervention to a dominant circumflex at that time. He was noted to have residual disease in the right coronary artery that was not amenable to attempted PCI the following day. Subsequent to his heart attack he appears to have been doing well from cardiac standpoint. He claims to be active outdoors doing yd work he does not report symptoms of chest pain or angina. He has no limiting dyspnea. He did not describe orthopnea. He is currently admitted for a partial small-bowel obstruction versus enteritis. He had some significant diarrhea and nausea with vomiting at home leading up to his admission. He did not report symptoms of chest discomfort. Since admission his symptoms have improved. He did not report abdominal pain. He has not had significant diarrhea. His nausea and vomiting has resolved and he is currently tolerating a clear liquid diet. He seems anxious for discharge. Allergies Allergy/AdvReac Type Severity Reaction Status Date / Time shellfish derived Allergy Intermediate THOAT Verified 09/30/21 16:02 [facility] Medications Medication Instructions Recorded Confirmed Type blood sugar diagnostic (OneTouch #50 ea 06/18/20 07/19/21 Rx Ultra Blue Test Strip) aspirin 81 mg tablet,delayed 81 mg PO QAM #30 tabs 04/05/21 07/19/21 Rx release nitroglycerin 0.4 mg sublingual 0.4 mg sublingual PRN PRN chest 04/05/21 07/19/21 Rx tablet (Nitrostat) pain #1 btl metoprolol succinate 25 mg 25 mg PO DAILY #30 tabs 04/12/21 07/19/21 Rx tablet,extended release 24 hr ticagrelor 90 mg tablet (Brilinta) 90 mg PO BID #60 tabs 04/12/21 07/19/21 Rx atorvastatin 80 mg tablet 80 mg PO QAM #90 tabs 09/12/21 Rx losartan 25 mg tablet 25 mg PO DAILY #90 tabs 09/30/21 09/30/21 Rx Patient History Medical History Benign essential hypertension CAD (coronary artery disease) Diabetic peripheral neuropathy associated with type 2 diabetes mellitus Diabetic ulcer of left foot associated with type 2 diabetes mellitus, limited to breakdown of skin HFrEF (heart failure with reduced ejection fraction) Hyperlipidemia Peripheral neuropathy Prostate cancer screening Prostate cancer screening Thoracic aortic aneurysm (TAA) Tobacco use disorder Type 2 diabetes mellitus Surgical History History of cardiac cath History of colonoscopy Status post ORIF of fracture of ankle "left" Family History Father Heart disease Prostate cancer Mother Diabetes Myocardial infarction Denies family history of Ovarian cancer Breast cancer Colorectal cancer Social History Smoking Status: Never smoker Tobacco Type: Cigarettes Cigarettes Per Day: 10; Hx Alcohol Use: No Hx Substance Use: No Preferred Language: Slovak Communication Ability: Effective Visual Impairment: Limited Hearing Ability: Normal 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 Physical Exam Physical Exam: The patient is alert and oriented. Mood and affect appeared normal. He answered all questions appropriately. HEENT: Pupils are equal and reactive to light and accommodation. Extraocular movements are intact. The sclerae are anicteric. Neuro: Cranial nerves intact Lungs: Clear to auscultation bilaterally. He has good air movement without use of accessory muscles. No rales wheezes or rhonchi. Cardiac: Heart demonstrates a regular rate and rhythm. Normal S1 and S2. No murmurs on examination. Pulses: The patient has palpable radial pulses bilaterally that are equal in intensity Abdomen: Soft. Nontender. Extremities: There was no evidence of hypoperfusion. There is no cyanosis or clubbing. There is no edema. Skin: I did not appreciate any rashes on examination today. Results & Data ([facility]) Vital Signs (Past 12 Hours) Vital Signs Temp Pulse Pulse Resp BP Pulse Ox O2 Del Method 01/03/22 12:11 36.7 C 72 18 103/65 95 Room Air 01/03/22 07:32 36.8 C 79 19 111/66 96 Room Air 01/03/22 07:03 72 01/03/22 03:20 36.7 C 66 18 122/74 94 Room Air Laboratory Results Abnormal Lab Results 01/02/22 01/02/22 01/02/22 06:15 08:30 12:59 WBC RBC Hgb Hct MCV MCH MCHC RDW Std Deviation RDW Coeff of Denilson Plt Count MPV Immature Gran % (Auto) Neut % (Auto) Lymph % (Auto) Hall % (Auto) Eos % (Auto) Baso % (Auto) Neut # (Auto) Lymph # (Auto) Hall # (Auto) Eos # (Auto) Baso # (Auto) Immature Gran # (Auto) Sodium Potassium Chloride Carbon Dioxide Anion Gap BUN Creatinine Est Cr Clr Drug Dosing Est GFR ( Amer) Est GFR (Non-Af Amer) BUN/Creatinine Ratio Glucose POC Glucose Estimat Average Glucose Hemoglobin A1c Lactate 2.4 H* Calcium Magnesium Total Bilirubin AST ALT Alkaline Phosphatase Troponin I High Sens Total Protein Albumin Globulin Albumin/Globulin Ratio Procalcitonin 0.18 Urine Color Dark Yellow Urine Appearance Cloudy A Urine pH 5.5 Ur Specific [place] 1.030 Urine Protein 1+ H Urine Glucose (UA) Negative Urine Ketones Trace H Urine Blood Negative Urine Nitrite Negative Urine Bilirubin Negative Urine Urobilinogen Negative Ur Leukocyte Esterase Negative Urine WBC (Auto) 1-5 Urine RBC (Auto) 0-4 U Hyaline Cast (Auto) >30 H U Epithel Cells (Auto) >30 H Urine Bacteria (Auto) Negative Ur Renal Epithelial Cell Not Reportable Calcium Oxalate Crystal Present A Granular Casts 1-5 H Urine Mucus Present A 01/02/22 01/02/22 01/02/22 14:42 14:54 17:44 WBC RBC Hgb Hct MCV MCH MCHC RDW Std Deviation RDW Coeff of Denilson Plt Count MPV Immature Gran % (Auto) Neut % (Auto) Lymph % (Auto) Hall % (Auto) Eos % (Auto) Baso % (Auto) Neut # (Auto) Lymph # (Auto) Hall # (Auto) Eos # (Auto) Baso # (Auto) Immature Gran # (Auto) Sodium Potassium Chloride Carbon Dioxide Anion Gap BUN Creatinine Est Cr Clr Drug Dosing Est GFR ( Amer) Est GFR (Non-Af Amer) BUN/Creatinine Ratio Glucose POC Glucose 146 H Estimat Average Glucose Hemoglobin A1c Lactate 2.3 H* Calcium Magnesium Total Bilirubin AST ALT Alkaline Phosphatase Troponin I High Sens 471.2 H* D Total Protein Albumin Globulin Albumin/Globulin Ratio Procalcitonin Urine Color Urine Appearance Urine pH Ur Specific [place] Urine Protein Urine Glucose (UA) Urine Ketones Urine Blood Urine Nitrite Urine Bilirubin Urine Urobilinogen Ur Leukocyte Esterase Urine WBC (Auto) Urine RBC (Auto) U Hyaline Cast (Auto) U Epithel Cells (Auto) Urine Bacteria (Auto) Ur Renal Epithelial Cell Calcium Oxalate Crystal Granular Casts Urine Mucus 01/02/22 01/02/22 01/02/22 18:15 23:13 23:37 WBC RBC Hgb Hct MCV MCH MCHC RDW Std Deviation RDW Coeff of Denilson Plt Count MPV Immature Gran % (Auto) Neut % (Auto) Lymph % (Auto) Hall % (Auto) Eos % (Auto) Baso % (Auto) Neut # (Auto) Lymph # (Auto) Hall # (Auto) Eos # (Auto) Baso # (Auto) Immature Gran # (Auto) Sodium Potassium Chloride Carbon Dioxide Anion Gap BUN Creatinine Est Cr Clr Drug Dosing Est GFR ( Amer) Est GFR (Non-Af Amer) BUN/Creatinine Ratio Glucose POC Glucose 124 H 116 H Estimat Average Glucose Hemoglobin A1c Lactate Calcium Magnesium Total Bilirubin AST ALT Alkaline Phosphatase Troponin I High Sens 408.6 H* Total Protein Albumin Globulin Albumin/Globulin Ratio Procalcitonin Urine Color Urine Appearance Urine pH Ur Specific [place] Urine Protein Urine Glucose (UA) Urine Ketones Urine Blood Urine Nitrite Urine Bilirubin Urine Urobilinogen Ur Leukocyte Esterase Urine WBC (Auto) Urine RBC (Auto) U Hyaline Cast (Auto) U Epithel Cells (Auto) Urine Bacteria (Auto) Ur Renal Epithelial Cell Calcium Oxalate Crystal Granular Casts Urine Mucus 01/03/22 01/03/22 01/03/22 05:49 05:49 05:49 WBC 9.81 RBC 4.54 L Hgb 13.5 L D Hct 39.0 L MCV 85.9 MCH 29.7 MCHC 34.6 RDW Std Deviation 39.6 RDW Coeff of Denilson 12.8 Plt Count 182 MPV 9.4 Immature Gran % (Auto) 0.2 Neut % (Auto) 55.9 Lymph % (Auto) 30.6 Hall % (Auto) 9.1 Eos % (Auto) 4.0 Baso % (Auto) 0.2 Neut # (Auto) 5.49 Lymph # (Auto) 3.00 Hall # (Auto) 0.89 H Eos # (Auto) 0.39 Baso # (Auto) 0.02 Immature Gran # (Auto) 0.02 Sodium 137 Potassium 3.7 Chloride 105 Carbon Dioxide 24 Anion Gap 8 BUN 24 H Creatinine 0.96 D Est Cr Clr Drug Dosing 94.2 Est GFR ( Amer) 97.1 Est GFR (Non-Af Amer) 83.8 BUN/Creatinine Ratio 25.0 H Glucose 128 H POC Glucose Estimat Average Glucose 151 Hemoglobin A1c 6.9 H Lactate Calcium 8.0 L D Magnesium 1.6 L Total Bilirubin 0.9 AST 16 ALT 17 Alkaline Phosphatase 55 Troponin I High Sens 295.4 H* D Total Protein 6.0 D Albumin 3.6 Globulin 2.4 L Albumin/Globulin Ratio 1.5 Procalcitonin Urine Color Urine Appearance Urine pH Ur Specific [place] Urine Protein Urine Glucose (UA) Urine Ketones Urine Blood Urine Nitrite Urine Bilirubin Urine Urobilinogen Ur Leukocyte Esterase Urine WBC (Auto) Urine RBC (Auto) U Hyaline Cast (Auto) U Epithel Cells (Auto) Urine Bacteria (Auto) Ur Renal Epithelial Cell Calcium Oxalate Crystal Granular Casts Urine Mucus 01/03/22 01/03/22 01/03/22 06:12 09:21 11:10 WBC RBC Hgb Hct MCV MCH MCHC RDW Std Deviation RDW Coeff of Denilson Plt Count MPV Immature Gran % (Auto) Neut % (Auto) Lymph % (Auto) Hall % (Auto) Eos % (Auto) Baso % (Auto) Neut # (Auto) Lymph # (Auto) Hall # (Auto) Eos # (Auto) Baso # (Auto) Immature Gran # (Auto) Sodium Potassium Chloride Carbon Dioxide Anion Gap BUN Creatinine Est Cr Clr Drug Dosing Est GFR ( Amer) Est GFR (Non-Af Amer) BUN/Creatinine Ratio Glucose POC Glucose 125 H 132 H 133 H Estimat Average Glucose Hemoglobin A1c Lactate Calcium Magnesium Total Bilirubin AST ALT Alkaline Phosphatase Troponin I High Sens Total Protein Albumin Globulin Albumin/Globulin Ratio Procalcitonin Urine Color Urine Appearance Urine pH Ur Specific [place] Urine Protein Urine Glucose (UA) Urine Ketones Urine Blood Urine Nitrite Urine Bilirubin Urine Urobilinogen Ur Leukocyte Esterase Urine WBC (Auto) Urine RBC (Auto) U Hyaline Cast (Auto) U Epithel Cells (Auto) Urine Bacteria (Auto) Ur Renal Epithelial Cell Calcium Oxalate Crystal Granular Casts Urine Mucus Diagnostic Findings Echocardiogram obtained 01/02/2022: Normal LV systolic function with ejection fraction of 50-55%. Some distal posterior hypokinesis. Stage I diastolic dysfunction. Cardiac cath/PCI 03/2021: 99% distal LCx before bifurcation with OM 3/LPLB; 80% mid, 95% distal RCA, 99% R-PAV; 60% focal distal LAD. PCI LCx and OM3 2.5 x 30 mm Lopez postdilated with 3.0 NC. PCI left PLB with 2.5 x 12 mm [place] ECG Additional Comments: Normal sinus rhythm. Normal EKG PG Care Time/CCT Total # of Minutes Spent Total Time Spent with Patient: Total time spent is greater than 50% in coordination of care (as documented) at patient's floor/unit and/or counseling patient: Coding Level of Care Code 73797 Inpt Consult Level 4 Diagnoses Coronary artery disease I25.10 Associated angina: without angina Coronary Disease-Associated Artery/Lesion type: [place] artery [place] vs. transplanted heart: [place] heart Elevated troponin R77.8 (1) Coronary artery disease Associated angina: without angina Coronary Disease-Associated Artery/Lesion type: [place] artery [place] vs. transplanted heart: [place] heart Qualified Code(s): I25.10 - Atherosclerotic heart disease of [place] coronary artery without angina pectoris
--- NOTE | 2022-01-03 14:51 | Hospitalist Progress Note ---
Date of Service January 03, 2022 Assessment & Plan (1) Nausea vomiting and diarrhea: Plan: SBO versus nonspecific enteritis; symptoms improved; diet initiated; follow; Stop IV fluid (2) NEIDA (acute kidney injury): Plan: Improvedfollow (3) CAD (coronary artery disease): Plan: No angina, likely type II NSTEMI (demand) All cardiac meds resumed as recommended by cardiology (4) Diabetic ulcer of left foot associated with type 2 diabetes mellitus, limited to breakdown of skin: Plan: Patient previously followed with podiatry but no longer does It seems callused over at this time, no evidence of infection, and no intervention needed acutely (5) Type 2 diabetes mellitus: Plan: Sugars reasonableno change (6) HFrEF (heart failure with reduced ejection fraction): Plan: Chronic systolic heart failurewell compensated; stopped fluid and resumed all cardiac meds and follow (7) Hyperlipidemia: Plan: Resume Lipitor (8) Rash: Plan: Apparently had an itchy rash on his torso that he came to the ER which resolved with Benadryl. Monitor for recurrence: Had no complaints in this regard Plan DVT prophylaxis-SCDs, Lovenox 40 Mg SQ Ext Admission and Anticipated Discharge Date Admission Date: January 02, 2022 Subjective Follow-up upper abdominal pain, nausea vomiting and diarrheadoing much better; had no symptoms Physical Exam Physical Exam: Constitutional and general: No acute distress, looks biologic age Head and face: No puffiness, atraumatic Eyes: No scleral icterus, extraocular movements normal Neck: Supple, no JVD Musculoskeletal: No acute joint swelling, no bony abnormalities Skin/dermatologic/integument: No rash, no purpura Hematologic and lymphatic: pallor +, no petechia Gastrointestinal/abdomen: Nondistended, soft, nonacute Neurologic: Cranial nerves intact, nonfocal Psychiatry: Awake, alert, pleasant, communicative Cardiovascular: Heart rhythm regular, no rub, no murmur, no gallop Respiratory: Chest movements equal, no use of accessory muscles, no adventitious sounds Extremities: No edema, no cyanosis Results & Data Results & Data ([facility]) Vital Signs (Past 12 Hours) Vital Signs Temp Pulse Pulse Resp BP Pulse Ox O2 Del Method 01/03/22 12:11 36.7 C 72 18 103/65 95 Room Air 01/03/22 07:32 36.8 C 79 19 111/66 96 Room Air 01/03/22 07:03 72 01/03/22 03:20 36.7 C 66 18 122/74 94 Room Air Laboratory Results Laboratory Results - last 24 hr 01/02/22 01/02/22 01/02/22 06:15 14:42 14:54 WBC RBC Hgb Hct MCV MCH MCHC RDW Std Deviation RDW Coeff of Denilson Plt Count MPV Immature Gran % (Auto) Neut % (Auto) Lymph % (Auto) [place] % (Auto) Eos % (Auto) Baso % (Auto) Neut # (Auto) Lymph # (Auto) [place] # (Auto) Eos # (Auto) Baso # (Auto) Immature Gran # (Auto) Sodium Potassium Chloride Carbon Dioxide Anion Gap BUN Creatinine Est Cr Clr Drug Dosing Est GFR ( Amer) Est GFR (Non-Af Amer) BUN/Creatinine Ratio Glucose POC Glucose 146 H Estimat Average Glucose Hemoglobin A1c Lactate 2.3 H* Calcium Magnesium Total Bilirubin AST ALT Alkaline Phosphatase Troponin I High Sens Total Protein Albumin Globulin Albumin/Globulin Ratio Urine Color Dark Yellow Urine Appearance Cloudy A Urine pH 5.5 Ur Specific [place] 1.030 Urine Protein 1+ H Urine Glucose (UA) Negative Urine Ketones Trace H Urine Blood Negative Urine Nitrite Negative Urine Bilirubin Negative Urine Urobilinogen Negative Ur Leukocyte Esterase Negative Urine WBC (Auto) 1-5 Urine RBC (Auto) 0-4 U Hyaline Cast (Auto) >30 H U Epithel Cells (Auto) >30 H Urine Bacteria (Auto) Negative Ur Renal Epithelial Cell Not Reportable Calcium Oxalate Crystal Present A Granular Casts 1-5 H Urine Mucus Present A Stl C. cayetanensis PCR Stool Rotavirus A PCR Stl Adenov F 40/41 PCR Stool Astrovirus (PCR) Stool Campylobacter PCR Stl C. diff Tox A/B PCR Stool Cryptosporidium PCR Stl E.coli Shiga Tox PCR Stl Enterotoxigenic E PCR Stool EAEC (PCR) Stl E. histolytica PCR Stool Giardia Lamblia PCR Stool Salmonella PCR Stool Sapovirus (PCR) Stl P. shigelloides PCR Stl Shigella/EIEC PCR St Y.enterocolitica PCR Stool Vibrio (PCR) Stl Vibrio cholerae PCR Stl Norovirus GI/GII PCR 01/02/22 01/02/22 01/02/22 17:44 18:15 23:13 WBC RBC Hgb Hct MCV MCH MCHC RDW Std Deviation RDW Coeff of Denilson Plt Count MPV Immature Gran % (Auto) Neut % (Auto) Lymph % (Auto) Jewell % (Auto) Eos % (Auto) Baso % (Auto) Neut # (Auto) Lymph # (Auto) Jewell # (Auto) Eos # (Auto) Baso # (Auto) Immature Gran # (Auto) Sodium Potassium Chloride Carbon Dioxide Anion Gap BUN Creatinine Est Cr Clr Drug Dosing Est GFR ( Amer) Est GFR (Non-Af Amer) BUN/Creatinine Ratio Glucose POC Glucose 124 H Estimat Average Glucose Hemoglobin A1c Lactate Calcium Magnesium Total Bilirubin AST ALT Alkaline Phosphatase Troponin I High Sens 471.2 H* D 408.6 H* Total Protein Albumin Globulin Albumin/Globulin Ratio Urine Color Urine Appearance Urine pH Ur Specific [place] Urine Protein Urine Glucose (UA) Urine Ketones Urine Blood Urine Nitrite Urine Bilirubin Urine Urobilinogen Ur Leukocyte Esterase Urine WBC (Auto) Urine RBC (Auto) U Hyaline Cast (Auto) U Epithel Cells (Auto) Urine Bacteria (Auto) Ur Renal Epithelial Cell Calcium Oxalate Crystal Granular Casts Urine Mucus Stl C. cayetanensis PCR Stool Rotavirus A PCR Stl Adenov F 40/41 PCR Stool Astrovirus (PCR) Stool Campylobacter PCR Stl C. diff Tox A/B PCR Stool Cryptosporidium PCR Stl E.coli Shiga Tox PCR Stl Enterotoxigenic E PCR Stool EAEC (PCR) Stl E. histolytica PCR Stool Giardia Lamblia PCR Stool Salmonella PCR Stool Sapovirus (PCR) Stl P. shigelloides PCR Stl Shigella/EIEC PCR St Y.enterocolitica PCR Stool Vibrio (PCR) Stl Vibrio cholerae PCR Stl Norovirus GI/GII PCR 01/02/22 01/03/22 01/03/22 23:37 05:49 05:49 WBC 9.81 RBC 4.54 L Hgb 13.5 L D Hct 39.0 L MCV 85.9 MCH 29.7 MCHC 34.6 RDW Std Deviation 39.6 RDW Coeff of Denilson 12.8 Plt Count 182 MPV 9.4 Immature Gran % (Auto) 0.2 Neut % (Auto) 55.9 Lymph % (Auto) 30.6 Jewell % (Auto) 9.1 Eos % (Auto) 4.0 Baso % (Auto) 0.2 Neut # (Auto) 5.49 Lymph # (Auto) 3.00 Jewell # (Auto) 0.89 H Eos # (Auto) 0.39 Baso # (Auto) 0.02 Immature Gran # (Auto) 0.02 Sodium 137 Potassium 3.7 Chloride 105 Carbon Dioxide 24 Anion Gap 8 BUN 24 H Creatinine 0.96 D Est Cr Clr Drug Dosing 94.2 Est GFR ( Amer) 97.1 Est GFR (Non-Af Amer) 83.8 BUN/Creatinine Ratio 25.0 H Glucose 128 H POC Glucose 116 H Estimat Average Glucose Hemoglobin A1c Lactate Calcium 8.0 L D Magnesium 1.6 L Total Bilirubin 0.9 AST 16 ALT 17 Alkaline Phosphatase 55 Troponin I High Sens 295.4 H* D Total Protein 6.0 D Albumin 3.6 Globulin 2.4 L Albumin/Globulin Ratio 1.5 Urine Color Urine Appearance Urine pH Ur Specific [place] Urine Protein Urine Glucose (UA) Urine Ketones Urine Blood Urine Nitrite Urine Bilirubin Urine Urobilinogen Ur Leukocyte Esterase Urine WBC (Auto) Urine RBC (Auto) U Hyaline Cast (Auto) U Epithel Cells (Auto) Urine Bacteria (Auto) Ur Renal Epithelial Cell Calcium Oxalate Crystal Granular Casts Urine Mucus Stl C. cayetanensis PCR Stool Rotavirus A PCR Stl Adenov F 40/41 PCR Stool Astrovirus (PCR) Stool Campylobacter PCR Stl C. diff Tox A/B PCR Stool Cryptosporidium PCR Stl E.coli Shiga Tox PCR Stl Enterotoxigenic E PCR Stool EAEC (PCR) Stl E. histolytica PCR Stool Giardia Lamblia PCR Stool Salmonella PCR Stool Sapovirus (PCR) Stl P. shigelloides PCR Stl Shigella/EIEC PCR St Y.enterocolitica PCR Stool Vibrio (PCR) Stl Vibrio cholerae PCR Stl Norovirus GI/GII PCR 01/03/22 01/03/22 01/03/22 05:49 06:12 09:21 WBC RBC Hgb Hct MCV MCH MCHC RDW Std Deviation RDW Coeff of Denilson Plt Count MPV Immature Gran % (Auto) Neut % (Auto) Lymph % (Auto) [place]ell % (Auto) Eos % (Auto) Baso % (Auto) Neut # (Auto) Lymph # (Auto) [place] # (Auto) Eos # (Auto) Baso # (Auto) Immature Gran # (Auto) Sodium Potassium Chloride Carbon Dioxide Anion Gap BUN Creatinine Est Cr Clr Drug Dosing Est GFR ( Amer) Est GFR (Non-Af Amer) BUN/Creatinine Ratio Glucose POC Glucose 125 H 132 H Estimat Average Glucose 151 Hemoglobin A1c 6.9 H Lactate Calcium Magnesium Total Bilirubin AST ALT Alkaline Phosphatase Troponin I High Sens Total Protein Albumin Globulin Albumin/Globulin Ratio Urine Color Urine Appearance Urine pH Ur Specific [place] Urine Protein Urine Glucose (UA) Urine Ketones Urine Blood Urine Nitrite Urine Bilirubin Urine Urobilinogen Ur Leukocyte Esterase Urine WBC (Auto) Urine RBC (Auto) U Hyaline Cast (Auto) U Epithel Cells (Auto) Urine Bacteria (Auto) Ur Renal Epithelial Cell Calcium Oxalate Crystal Granular Casts Urine Mucus Stl C. cayetanensis PCR Stool Rotavirus A PCR Stl Adenov F 40/ PCR Stool Astrovirus (PCR) Stool Campylobacter PCR Stl C. diff Tox A/B PCR Stool Cryptosporidium PCR Stl E.coli Shiga Tox PCR Stl Enterotoxigenic E PCR Stool EAEC (PCR) Stl E. histolytica PCR Stool Giardia Lamblia PCR Stool Salmonella PCR Stool Sapovirus (PCR) Stl P. shigelloides PCR Stl Shigella/EIEC PCR St Y.enterocolitica PCR Stool Vibrio (PCR) Stl Vibrio cholerae PCR Stl Norovirus GI/GII PCR 01/03/22 01/03/22 11:10 Unknown WBC RBC Hgb Hct MCV MCH MCHC RDW Std Deviation RDW Coeff of Denilson Plt Count MPV Immature Gran % (Auto) Neut % (Auto) Lymph % (Auto) Jewell % (Auto) Eos % (Auto) Baso % (Auto) Neut # (Auto) Lymph # (Auto) [place]ell # (Auto) Eos # (Auto) Baso # (Auto) Immature Gran # (Auto) Sodium Potassium Chloride Carbon Dioxide Anion Gap BUN Creatinine Est Cr Clr Drug Dosing Est GFR ( Amer) Est GFR (Non-Af Amer) BUN/Creatinine Ratio Glucose POC Glucose 133 H Estimat Average Glucose Hemoglobin A1c Lactate Calcium Magnesium Total Bilirubin AST ALT Alkaline Phosphatase Troponin I High Sens Total Protein Albumin Globulin Albumin/Globulin Ratio Urine Color Urine Appearance Urine pH Ur Specific [place] Urine Protein Urine Glucose (UA) Urine Ketones Urine Blood Urine Nitrite Urine Bilirubin Urine Urobilinogen Ur Leukocyte Esterase Urine WBC (Auto) Urine RBC (Auto) U Hyaline Cast (Auto) U Epithel Cells (Auto) Urine Bacteria (Auto) Ur Renal Epithelial Cell Calcium Oxalate Crystal Granular Casts Urine Mucus Stl C. cayetanensis PCR Pending Stool Rotavirus A PCR Pending Stl Adenov F 40/41 PCR Pending Stool Astrovirus (PCR) Pending Stool Campylobacter PCR Pending Stl C. diff Tox A/B PCR Pending Stool Cryptosporidium PCR Pending Stl E.coli Shiga Tox PCR Pending Stl Enterotoxigenic E PCR Pending Stool EAEC (PCR) Pending Stl E. histolytica PCR Pending Stool Giardia Lamblia PCR Pending Stool Salmonella PCR Pending Stool Sapovirus (PCR) Pending Stl P. shigelloides PCR Pending Stl Shigella/EIEC PCR Pending St Y.enterocolitica PCR Pending Stool Vibrio (PCR) Pending Stl Vibrio cholerae PCR Pending Stl Norovirus GI/GII PCR Pending PG Care Time/CCT Total # of Minutes Spent Total Time Spent with Patient: Total time spent is greater than 50% in coordination of care (as documented) at patient's floor/unit and/or counseling patient: Coding Level of Care Code 39089 Subseq Hosp Care Lvl 2 Diagnoses Nausea vomiting and diarrhea R11.2; R19.7 NEIDA (acute kidney injury) N17.9 CAD (coronary artery disease) I25.10 Diabetic ulcer of left foot associated with type 2 diabetes mellitus, limited to breakdown of skin E11.621; L97.521 Type 2 diabetes mellitus E11.9 HFrEF (heart failure with reduced ejection fraction) I50.20 Hyperlipidemia E78.5 Rash R21
[2022-01-03 15:01] LABS: Adenovirus F 40/41 PCR Not Detected (NotDetected); Astrovirus PCR Not Detected (NotDetected); Campylobacter PCR Not Detected (NotDetected); Clostridium diff Toxin A/B PCR Not Detected (NotDetected); Cryptosporidium PCR Not Detected (NotDetected); Cyclospora cayetanensis PCR Not Detected (NotDetected); Entamoeba histolytica PCR Not Detected (NotDetected); Enteroaggregative E.coli(EAEC) Not Detected (NotDetected); Enteropathogenic E.coli (EPEC) Not Detected (NotDetected); Enterotoxigenic E.coli (ETEC) Not Detected (NotDetected); Giardia lamblia PCR Not Detected (NotDetected); Norovirus GI/GII PCR Not Detected (NotDetected); Plesiomonas shigelloides PCR Not Detected (NotDetected); Rotavirus A PCR Not Detected (NotDetected); Salmonella PCR Not Detected (NotDetected); Sapovirus PCR Not Detected (NotDetected); Shiga-like Toxin E.coli (STEC) Not Detected (NotDetected); Shigella/Enteroinvasive E.coli Not Detected (NotDetected); Vibrio cholerae PCR Not Detected (NotDetected); Vibrio species PCR Not Detected (NotDetected); Yersinia enterocolitica PCR Not Detected (NotDetected)
[2022-01-03] MEDS: ENOXAPARIN INJ 40 MG/0.4 ML SYR SQ SCH (16:02)
[2022-01-04 06:46] LABS: Basophils # (auto) 0.02 K/uL (0-0.2); Basophils % (auto) 0.3 %; Eosinophils # (auto) 0.33 K/uL (0-0.50); Eosinophils % (auto) 4.3 %; Hematocrit (blood only) 38.5 % (40.1-51.0); Hemoglobin 13.9 g/dl (14.0-18.0); Immature Granulocytes # (auto) 0.02 K/uL (0.00-0.02); Immature Granulocytes % (auto) 0.3 %; Lymphocytes # (auto) 2.49 K/uL (1.2-3.4); Lymphocytes % (auto) 32.1 %; Mean Corpuscular Hemoglobin 30.8 pg (25.0-34.0); Mean Corpuscular Hgb Conc 36.1 g/dL (32.0-36.0); Mean Corpuscular Volume 85.2 fL (80.0-100.0); Mean Platelet Volume 8.8 fL (9.4-12.4); Monocytes # (auto) 0.67 K/uL (0.24-0.82); Monocytes % (auto) 8.6 %; Neutrophils # (auto) 4.22 K/uL (1.4-6.5); Neutrophils % (auto) 54.4 %; Platelet Count 174 K/uL (130-400); RDW Coefficient of Variation 12.6 % (11.5-14.5); RDW Standard Deviation 38.7 fL (36.4-46.3); Red Blood Count 4.52 M/uL (4.63-6.08); White Blood Count 7.75 K/ul (4.8-10.8)
[2022-01-04 07:18] LABS: Calcium 8.3 mg/dl (8.5-10.1); Creatinine Clr Calc Pharmacy 103.3 ml/min; Est GFR (Non-African American) 91.4 ml/min; Potassium 3.6 mmol/L (3.5-5.1)
[2022-01-04 07:27] LABS: Albumin Globulin Ratio 1.5 (0.9-2); Albumin Level 3.8 gm/dl (3.4-5.0); Bilirubin,Total 0.9 mg/dl (0.2-1.0); Globulin 2.5 gm/dl (2.5-4.0); Phosphorus 2.4 mg/dl (2.5-4.9); Total Protein 6.3 gm/dl (6.0-8.3)
[2022-01-04] MEDS: INSULIN ASPART PER UNIT SC SCH ×2 (07:32→11:18)
[2022-01-04 07:38] LABS: Magnesium 1.9 mg/dl (1.7-2.4)
--- NOTE | 2022-01-04 07:46 | Surgery Progress Note ---
Date of Service January 04, 2022 Assessment & Plan (1) Enteritis: Plan: Patient is doing well clinically tolerating a diet and having bowel function He can be discharged today from a surgery standpoint I think this was a picture of an enteritis more than a true obstruction in the absence of any prior abdominal surgeries Surgery will sign off, please call with any questions or concerns Admission and Anticipated Discharge Date Admission Date: January 02, 2022 Subjective Patient seen and examined. Tolerating regular diet. Having bowel movements. Denies any abdominal pain. Afebrile. Review of Systems Constitutional: no fever and no chills Physical Exam Constitutional: WD/WN, vitals as above Gastrointestinal (Abdomen): Inspection/Auscultation: abdomen normal to inspection; abdomen not distended Percussion/Palpation: abdomen soft; abdomen nontender and no guarding Results & Data ([facility]) Vital Signs (Past 12 Hours) Vital Signs Temp Pulse Pulse Resp BP BP Pulse Ox 01/04/22 07:34 36.5 C 66 18 124/73 95 01/03/22 22:16 69 01/04/22 05:30 36.5 C 68 18 121/84 95 01/03/22 22:42 36.8 C 69 20 99/61 L 94 O2 Del Method 01/04/22 07:34 Room Air 01/03/22 22:16 01/04/22 05:30 Room Air 01/03/22 22:42 Room Air PG Care Time/CCT Total # of Minutes Spent Total Time Spent with Patient: Total time spent is greater than 50% in coordination of care (as documented) at patient's floor/unit and/or counseling patient: Coding Level of Care Code 12167 Subseq Hosp Care Lvl 1 Diagnoses Enteritis K52.9
[2022-01-04] MEDS: METOPROLOL SUCC 25MG EXT REL TAB PO SCH (08:16)
[2022-01-04] MEDS: ASPIRIN 81 MG ECTAB PO SCH (08:16)
[2022-01-04] MEDS: TICAGRELOR 90 MG TAB PO SCH (08:16)
[2022-01-04] MEDS ORDERED: ATORVASTATIN 40 MG TAB PO SCH (09:00)
[2022-01-04] MEDS ORDERED: LOSARTAN POTASSIUM 25 MG TAB PO SCH (09:00)
--- NOTE | 2022-01-04 10:56 | Electrocardiogram Report ---
Test Reason : Blood Pressure : / mmHG Vent. Rate : 063 BPM Atrial Rate : 063 BPM P-R Int : 180 ms QRS Dur : 092 ms QT Int : 442 ms P-R-T Axes : 022 -16 099 degrees QTc Int : 452 ms Normal sinus rhythm Inferior infarct (cited on or before 03-JAN-2022) Abnormal ECG When compared with ECG of 03-JAN-2022 06:08, No significant change was found Confirmed by Nikolai Reyes ([id number]) on 01/04/2022 10:56:29 AM Referred By: REFERRED SELF Confirmed By:Luciano Reyes
--- NOTE | 2022-01-04 13:26 | Discharge Summary ---
Date of Service January 04, 2022 Admission HPI Per Admitting Provider This patient is a 61-year-old male with history of CAD s/p 2 TAY to the distal CX/left PLB with severe residual calcified RCA disease, mild LV dysfunction with EF 45%, DM2 with neuropathy, hyperlipidemia, TAA, left diabetic foot ulcer, previous smoker, who presents to the ER with profuse nausea/vomiting/diarrhea along with sweats since last night. He reports he was at his camp at the end of last week and started having an acid brash type symptoms in the back of his throat and mouth for couple of days. He also reports he had not moved his bowels in about 3 days and that was a little bit unusual for him. He denied any abdominal pains. He does not drink water from streams and was eating cheeseburgers that he believes were fully cooked. Then he returned from [place] yesterday and last night started having profuse nonbloody diarrhea and vomiting simultaneously that would not stop. He was having sweats and did feel so weak that he lowered himself to the floor and was having trouble getting up but did not pass out. His brought him to the ER. He denies any chest pains or shortness of breath, no headache. He did also have an itchy rash on his torso that resolved in the ER with IV Benadryl. 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 He denies fevers. Nobody else around him has been sick. No difficulty with urination has been making his usual amount of urine. By the time I saw him, he was actually feeling a lot better. No further nausea, still without any abdominal pain. In the ER, he was found to be dehydrated with acute kidney injury, but LFTs, lipase, electrolytes otherwise normal. His WBC count was elevated at 18. Initial KUB showed a small bowel obstruction, but CT of the abdomen/pelvis showed findings more consistent with partial small bowel obstruction versus enteritis/ileus, with cholelithiasis, and evidence of prior granulomatous disease. He reportedly refused NG tube placement as per the ER PA. He was given 2 L of normal saline as well as Zofran and IV Benadryl. His COVID test negative.. His troponin was mildly elevated at 30 with some evidence of lateral ST depression and then repeat troponin shortly afterwards was up to 219.. Vital signs were stable other than some initial sinus tachycardia. He will be admitted for acute kidney injury, profuse nausea/vomiting/diarrhea with partial small bowel obstruction versus enteritis/ileus, and elevated troponin. Principal Diagnosis Possible gastroenteritis Discharge Exam Abdomen benign, no acute distress, looks very Vital Signs Temp Pulse Pulse Resp BP BP Pulse Ox 01/04/22 10:52 36.7 C 64 18 147/84 H 96 01/04/22 07:34 36.5 C 66 18 124/73 95 01/03/22 22:16 69 01/04/22 05:30 36.5 C 68 18 121/84 95 01/03/22 22:42 36.8 C 69 20 99/61 L 94 01/03/22 19:44 36.8 C 68 18 129/77 95 01/03/22 16:20 36.8 C 70 18 134/84 95 01/03/22 14:55 66 O2 Del Method 01/04/22 10:52 01/04/22 07:34 Room Air 01/03/22 22:16 01/04/22 05:30 Room Air 01/03/22 22:42 Room Air 01/03/22 19:44 Room Air 01/03/22 16:20 Room Air 01/03/22 14:55 Intake and Output 01/03/22 01/04/22 01/04/22 22:59 06:59 14:59 Intake Total 120 / 1120 0 / 1120 Output Total 400 / 1001 Balance 120 / 119 -400 / 119 Intake: Oral 120 / 120 0 / 120 Output: Urine 400 / 1000 Other: Weight 106.5 kg Weight Measurement Method Standing Scale Discharge Data Allergies Allergy/AdvReac Type Severity Reaction Status Date / Time shellfish derived Allergy Intermediate THOAT Verified 09/30/21 16:02 SWELLS Consultations 01/02/22 12:08 ED Decision to Admit Stat 01/02/22 14:41 Consult General Surgery Routine 01/02/22 21:51 Consult Cardiology Routine Ordered Studies 01/02/22 09:58 CT abd pelvis wo con Stat Hospital Course (1) Nausea vomiting and diarrhea: No upper GI symptoms; couple of loose stools earlier today but none on reevaluation; stool studies negative; discussed further observation in the hospital versus dischargehe wants to go home (2) CAD (coronary artery disease): No angina, likely type II NSTEMI (demand) All cardiac meds resumed as recommended by cardiology (3) Diabetic ulcer of left foot associated with type 2 diabetes mellitus, limited to breakdown of skin: Patient previously followed with podiatry but no longer does It seems callused over at this time, no evidence of infection, and no intervention needed acutelycan follow-up with PCP versus referral to podiatry (4) Type 2 diabetes mellitus: A1c 6.9, low-dose metformin added at discharge (5) HFrEF (heart failure with reduced ejection fraction): Chronic systolic heart failurewell compensated; resume all home meds (6) Hyperlipidemia: Resume Lipitor (7) Rash: Apparently had an itchy rash on his torso that he came to the ER which resolved with Benadryl. Monitor for recurrence: Had no complaints in this regard Total Time Total Time Spent Total Time Spent (In Minutes): 35 Discharge Plan Discharge Items Patient Disposition: Home - Self-Care Reason For Visit: N/V/D, NE[place] Discharge Diagnosis: Possible gastroenteritis Activity: Resume your previous activity Non-emergency contact: Primary Care Provider Call non-emergency contact if: your symptoms worsen Follow-up/Referrals: Oscar Pritchard MD [Primary Care Provider] - 01/09/22 2:30 pm Diet: Carb Consistent or DM2 and Heart Healthy Addtl Attending Provider Instructions: Maintain all your healthcare appointments Pending Studies at Discharge: No Stand-Alone Forms: [facility], Smoking Cessation Medications and DC Order Prescriptions: New metformin 500 mg tablet extended release 24 hr 500 mg PO DAILY Qty: 30 0RF Continued (DME) OneTouch Ultra Blue Test Strip Strip See Rx Instructions .ROUTE .MEDSUPPLY Qty: 50 11RF Rx Instructions: As directed daily Dx E11.9 atorvastatin 80 mg tablet 80 mg PO QAM Qty: 90 1RF Rx Instructions: for cholesterol and to stabilize plaque metoprolol succinate 25 mg tablet extended release 24 hr 25 mg PO DAILY Qty: 30 11RF Rx Instructions: for blood pressure and heart function Brilinta 90 mg tablet 90 mg PO BID Qty: 60 11RF Rx Instructions: to prevent stent closure losartan 25 mg tablet 25 mg PO DAILY Qty: 90 3RF Rx Instructions: for blood pressure, diabetes, and improve heart function. aspirin 81 mg Tablet,Delayed Release (Dr/Ec) 81 mg PO QAM Qty: 30 0RF nitroglycerin [Nitrostat] 0.4 mg Tablet, Sublingual 0.4 mg sublingual PRN PRN (Reason: chest pain) Qty: 1 0RF Discharge Orders: Discharge Order (Routine); Ordered 01/04/22 Ordered By: Sharla Mendiola/Other Patient Handouts: Diabetes and Heart Disease, Low-Salt Choices, Long-Term Complications of Diabetes, Healthy Meals for Diabetes, Understanding Carbohydrates, Diabetes Food Shop Meals Prep, Diabetes: Living Your Life, Low Salt Diet Dc, Managing Diabetes: The A1C Test, Diabetes Manage Stress, Understanding Type 2 Diabetes, Your Heart Risk Action Plan, Living Well After a Heart Attack, ED Diabetic Foot Care Admission Data Admit Date/Time: 01/02/22 12:51 Attending Provider: Sharla Austin Admit Provider: Ailyn Dewitt Primary Care Provider: Oscar Pritchard Providers: Baljeet Cantrell ; Ailyn Dewitt ; Nikolai Reyes Coding Level of Care Code D/C DAY MANAGEMENT >30 MINS Diagnoses Nausea vomiting and diarrhea R11.2; R19.7 CAD (coronary artery disease) I25.10 Diabetic ulcer of left foot associated with type 2 diabetes mellitus, limited to breakdown of skin E11.621; L97.521 Type 2 diabetes mellitus E11.9 HFrEF (heart failure with reduced ejection fraction) I50.20 Hyperlipidemia E78.5 Rash R21
== END 2022-01-04 15:34 | disposition home or self-care (01) | DRG 391 ==
LOC: ED 07:58 → 2S 12:51 → SUATTDRO 12:51 → 2S 13:41